=== PATIENT | male | born 1940 | race Caucasian/White ===

== ENCOUNTER 2025-05-09 12:29 | Emergency (ER) | payer MEDICARE, MEDICAID, SELFPAY ==
[2025-05-09] VITALS (33 sets, daily range): BP systolic 118–151; BP diastolic 79–114; PULSE 60–131; RESP 10–41; TEMP 36.1–36.6; O2SAT 88–98; BMI 25.7
--- NOTE | 2025-05-09 13:26 | CRLHL7_ITS ---
For Patients: As a result of the Century Cures Act, medical imaging exams and procedure reports are released immediately into your electronic medical record. You may view this report before your referring provider. If you have questions, please contact your health care provider. INDICATION: Shortness of breath TECHNIQUE: Chest 1 views. COMPARISON: None. FINDINGS: Cardiovasculature and mediastinum: Borderline cardiomegaly. Atherosclerosis of the aortic arch. Left chest wall pacemaker with leads in the right atrial appendage and right ventricle. Lungs and pleural spaces: Lung volumes are low. Mild interstitial prominence. No pneumothorax or pleural effusion. Bones and soft tissues: No significant findings. IMPRESSION: Mild interstitial prominence may be exaggerated by low lung volumes, but is concerning for mild pulmonary edema or infection. Dictated by Nela Nogueira MD @ 05/09/2025 1:57:14 PM (Electronically Signed)
--- NOTE | 2025-05-09 13:30 | ED_ITS ---
HPI - General Adult General Date Seen: 05/09/25 Chief complaint: Shortness of Breath/Dyspnea Stated complaint: shortness of breath and coughing Time Seen by Provider: 05/09/25 13:02 History of Present Illness HPI narrative: Patient is an 84-year-old here with his daughter for evaluation of shortness of breath and cough. He has apparently been more short of breath over the past couple of weeks but worse the past couple of days and now has a significant cough which his roommate at [facility], the nursing facility where he lives, said kept him up all night. No reported fevers. They are not aware of any COVID at the facility. 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 She tells me that he was on IV antibiotics for 6 weeks which did not end up making any difference and so they discontinue that, he has on chronic oral antibiotics now and is managed by an infectious disease doctor whose name she can not remember. Otherwise his care has generally been at [facility], he did see a syrup maker cook at [facility] at some point and she does not know the name of that person either. She says they told her that the next time this bacterial mass acts up that he might . He has apparently been gaining weight, but notes that his appetite has recently been better than it was. He does not have any lower extremity swelling. Related Data Home Medications ?Medication ?Instructions ?Recorded ?Confirmed aspirin 81 mg capsule 81 mg PO DAILY 05/09/2504/20 atorvastatin 40 mg tablet 40 mg PO DAILY 05/09/2504/20 cefadroxil 500 mg capsule 500 mg PO BID 05/09/2505/09 losartan 25 mg tablet (Cozaar) 12.5 mg PO DAILY 05/09/25 metoprolol succinate 25 mg 12.5 mg PO DAILY 05/09/25 0 05/09/25 tablet,extended release 24 hr (Toprol XL) Allergies Allergy/AdvReac Type Severity Reaction Status Date / Time fish oil Allergy Intermediate Rash Verified 05/09/25 12:53 tumeric Allergy Mild Rash Uncoded 05/09/25 12:53 Review of Systems Status of ROS: Reports: 10 or more systems reviewed and unremarkable except as noted in History and below Exam Narrative: Exam Narrative: Vital signs reviewed In general, alert, nontoxic elderly male. He does look tachypneic. Speaks in full sentences. Head: Normocephalic, atraumatic. Eyes: Sclera clear. Pupils equal and reactive. ENT: Mucous membranes moist. Neck: Supple without adenopathy. Heart: Sounded mildly tachycardic on my exam, he does have a systolic murmur heard over the right and left sternal borders. Lungs: Clear. No increased work of breathing, crackles or wheezes. Abdomen: Soft, nontender to palpation. Extremities: Well perfused, pulses intact. No significant edema. Neurologic: Alert, conversant. Speech fluent, face symmetric. Moves all extremities equally. Skin: Warm, dry well perfused. Affect: Normal. Const: Vital Signs, click to edit/add: Vital Signs - 24 hr 05/09/25 12:54 05/09/25 13:37 05/09/25 13:52 Temperature 97.0 F L Pulse Rate 66 122 H Pulse Rate [Pulse Oximeter] 82 Respiratory Rate 32 H 23 Blood Pressure 127/99 H Blood Pressure [Le ft Upper Arm] 132/80 Pulse Oximetry 98 95 89 Oxygen Delivery Me thod Room Air Oxygen Flow Rate 05/09/25 14:00 05/09/25 14:01 05/09/25 14:02 Temperature Pulse Rate 62 61 61 Pulse Rate [Pulse Oximeter] Respiratory Rate 26 H 15 27 H Blood Pressure 149/90 H Blood Pressure [Le ft Upper Arm] Pulse Oximetry 91 93 94 Oxygen Delivery Me thod Oxygen Flow Rate 05/09/25 14:30 05/09/25 14:32 05/09/25 15:00 Temperature Pulse Rate 64 60 Pulse Rate [Pulse Oximeter] Respiratory Rate 16 30 H 30 H Blood Pressure 137/79 Blood Pressure [Le ft Upper Arm] Pulse Oximetry 93 89 Oxygen Delivery Me thod Oxygen Flow Rate 05/09/25 15:01 05/09/25 15:30 05/09/25 15:33 Temperature Pulse Rate 90 Pulse Rate [Pulse Oximeter] Respiratory Rate 29 H 29 H 18 Blood Pressure 136/114 H 151/84 H Blood Pressure [Le ft Upper Arm] Pulse Oximetry 91 Oxygen Delivery Me thod Oxygen Flow Rate 05/09/25 15:34 05/09/25 16:00 05/09/25 16:01 Temperature Pulse Rate 118 H Pulse Rate [Pulse Oximeter] Respiratory Rate 15 22 Blood Pressure Blood Pressure [Le ft Upper Arm] Pulse Oximetry 96 97 Oxygen Delivery Me thod Nasal Cannula Oxygen Flow Rate 1 05/09/25 16:04 05/09/25 16:05 05/09/25 16:21 Temperature Pulse Rate 104 H 122 H Pulse Rate [Pulse Oximeter] Respiratory Rate 29 H 31 H 11 L Blood Pressure 140/109 H Blood Pressure [Le ft Upper Arm] Pulse Oximetry 97 93 Oxygen Delivery Me thod Oxygen Flow Rate 05/09/25 16:22 05/09/25 16:30 05/09/25 16:31 Temperature Pulse Rate 115 H 128 H 114 H Pulse Rate [Pulse Oximeter] Respiratory Rate 26 H 27 H 29 H Blood Pressure 140/96 H Blood Pressure [Le ft Upper Arm] Pulse Oximetry 96 97 97 Oxygen Delivery Me thod Nasal Cannula Nasal Cannula Nasal Cannula Oxygen Flow Rate 1 1 1 05/09/25 16:39 05/09/25 17:00 05/09/25 17:02 Temperature 97.9 F Pulse Rate 128 H 128 H Pulse Rate [Pulse Oximeter] Respiratory Rate 30 H 28 H Blood Pressure 131/100 H Blood Pressure [Le ft Upper Arm] Pulse Oximetry 98 97 Oxygen Delivery Me thod Nasal Cannula Nasal Cannula Oxygen Flow Rate 1 1 05/09/25 17:03 05/09/25 17:30 05/09/25 17:32 Temperature Pulse Rate 105 H Pulse Rate [Pulse Oximeter] Respiratory Rate 33 H 35 H 36 H Blood Pressure 118/102 H Blood Pressure [Le ft Upper Arm] Pulse Oximetry 97 Oxygen Delivery Me thod Nasal Cannula Nasal Cannula Nasal Cannula Oxygen Flow Rate 1 1 1 05/09/25 17:33 05/09/25 18:00 05/09/25 18:02 Temperature Pulse Rate 130 H 127 H Pulse Rate [Pulse Oximeter] Respiratory Rate 14 10 L 41 H Blood Pressure 120/96 H Blood Pressure [Le ft Upper Arm] Pulse Oximetry 95 92 Oxygen Delivery Me thod Nasal Cannula Nasal Cannula Oxygen Flow Rate 1 1 Course Course ED Course: Patient is medically complex with prior known bacterial endocarditis and chronic antibiotics. Diagnostic considerations are broad but would include a viral process such as COVID, pneumonia, congestive heart failure, pleural effusion, acute coronary syndrome, pulmonary embolism, anemia, among others. Wheezing reported but not heard at the time of my exam. Workup here is suggestive primarily of congestive heart failure, BNP was markedly elevated at almost 14,000. His initial troponin was 0.05, repeat was 0.17. He has never complained of chest pain, his EKG is paced and therefore not helpful. I tend to think that the troponin is more related to demand ischemia, but certainly cannot rule out acute coronary syndrome. I did talk with Cardiology through [facility], he reviewed the patient's records and noted that previously he is noted have severe aortic stenosis on ultrasound in November of this year. Not felt to be a candidate for TAVR and would not likely survive open heart surgery. Therefore, no likely interventions for his aortic stenosis, though the syrup maker cook did say that if his vegetations have resolved, it is possible he would be a candidate for TAVR. Patient seems to have quite a bit of cognitive difficulty, my conversations were generally with his daughter and son-in-law. I talked with our hospitalist who felt he would be best served at a place with Cardiology. I talked with the hospitalist at [facility], who noted that there may not be any specific intervention to do and that the further distance may be a hardship, particularly if he deteriorates. I reviewed this carefully with patient's son-in-law, his daughter was not available at the time. Daughter apparently said that she would still prefer to transfer. Therefore, arrangements being made. I gave him 40 mg of IV Lasix. His heart rate has been highly variable while here, sometimes in the 60s and sometimes close to 130. He does have a pacemaker, I repeated his EKG and this showed a paced rhythm with a rate at that time of about 1 L4, unclear whether he is going into atrial fibrillation, family does not believe he has had that diagnosis previously. Because he is so highly variable I have not given him rate control. His blood pressure has tolerated this without difficulty. I do have on on a L of oxygen, O2 sats were running about 91% and he was tachypneic on arrival. He looks like he is breathing comfortably now. Vital Signs Vital signs: Initial Vital Signs Temperature 97.0 F L 05/09/25 12:54 Temperature Source Temporal Artery Scan 05/09/25 12:54 Pulse Rate 82 05/09/25 12:54 Respiratory Rate 32 H 05/09/25 12:54 Blood Pressure 132/80 05/09/25 12:54 Blood Pressure Mean 97 05/09/25 12:54 Blood Pressure Position Sitting 05/09/25 12:54 Pulse Oximetry 98 05/09/25 12:54 Oxygen Delivery Method Room Air 05/09/25 12:54 Vital Signs Temperature 97.0 F L 05/09/25 12:54 Pulse Rate 82 05/09/25 12:54 Respiratory Rate 32 H 05/09/25 12:54 Blood Pressure 132/80 05/09/25 12:54 Pulse Oximetry 98 05/09/25 12:54 Oxygen Delivery Method Room Air 05/09/25 12:54 Temperature 97.9 F 05/09/25 16:39 Pulse Rate 127 H 05/09/25 18:02 Respiratory Rate 41 H 05/09/25 18:02 Blood Pressure 120/96 H 05/09/25 18:02 Pulse Oximetry 92 05/09/25 18:02 Oxygen Delivery Method Nasal Cannula 05/09/25 18:02 Oxygen Flow Rate 1 05/09/25 18:02 Medications Administered Medications: Discontinued Medications Generic Name Dose Route Start Last Admin Trade Name Nielsq PRN Reason Stop Dose Admin Furosemide 40 mg 05/09/25 15:02 05/09/25 15:44 Furosemide 10 Mg/Ml Inj IVP 05/09/25 15:03 40 mg ONCE ONE Administration Medical Decision Making Lab Data Labs: Lab Results 05/09/25 05/09/25 05/09/25 Range/Units 13:10 13:27 14:00 WBC 8.54 (4.50-11.00) K/uL RBC 4.72 (4.30-5.90) m/uL Hgb 14.6 (13.5-17.5) gm/dL Hct 44.2 (37.0-53.0) % MCV 94 (80-100) fL MCH 31 (26-34) pg MCHC 33 (32-36) gm/dL RDW Coeff of Luiza 14.5 (11.5-15.5) % Plt Count 112 L (140-440) K/uL Neut % (Auto) 84.0 H (42.0-72.0) % Lymph % (Auto) 6.2 L (20-44) % Cheyenne % (Auto) 9.6 (0.0-11.0) % Eos % (Auto) 0.0 (0.0-7.0) % Baso % (Auto) 0.1 (0.0-3.0) % Neut # (Auto) 7.20 H (1.7-7.0) K/uL Lymph # (Auto) 0.50 L (0.90-2.90) K/uL Cheyenne # (Auto) 0.80 (0.00-0.90) K/UL Eos # (Auto) 0.00 (0.00-0.50) K/uL Baso # (Auto) 0.01 (0.00-0.30) K/uL Abs Immat Gran (auto) 0.01 (0.00-0.30) K/uL Imm/Tot Granulo (auto) 0.1 % VBG pH 7.330 (7.32-7.43) VBG pCO2 42 (40-50) mmHG VBG pO2 < 30.1 (25-47) mmHG VBG HCO3 22 (21-28) mmol/L Sodium 140 (135-149) mmol/L Potassium 4.4 (3.6-5.1) mmol/L Chloride 108 (96-114) mmol/L Carbon Dioxide 22 (20-32) mmol/L Anion Gap 10 (7-15) mEq/L BUN 48 H (7-30) mg/dL Creatinine 1.4 (0.5-1.5) mg/dL Estimated Creat Clear 44.04 Estimated GFR 49 ml/min Glucose 154 H (60-115) mg/dL Lactate 2.1 H (0.5-1.9) mmol/L Calcium 10.3 (8.4-10.6) mg/dL Total Bilirubin 1.5 (0.1-1.5) mg/dL Direct Bilirubin 0.3 (0.0-0.5) mg/dL AST 47 H (12-35) U/L ALT 36 (4-50) U/L Alkaline Phosphatase 57 (40-150) U/L C-Reactive Protein 2.1 H (0.5-1.0) mg/dL NT-Pro-B Natriuret Pep 48636 H (See Note) pg/mL Total Protein 7.4 (6.0-8.3) g/dL Albumin 4.3 (3.3-5.0) g/dL SARS-CoV-2 (PCR) Negative SARS-CoV-2 (Negative) Influenza Type A (PCR) Negative PCR FLU A (Negative) Influenza Type B (PCR) Negative PCR FLU B (Negative) RSV (PCR) Negative PCR RSV (Negative) POC Troponin I 0.05 H (0.01-0.04) ng/ml 05/09/25 Range/Units 16:00 WBC (4.50-11.00) K/uL RBC (4.30-5.90) m/uL Hgb (13.5-17.5) gm/dL Hct (37.0-53.0) % MCV (80-100) fL MCH (26-34) pg MCHC (32-36) gm/dL RDW Coeff of Luiza (11.5-15.5) % Plt Count (140-440) K/uL Neut % (Auto) (42.0-72.0) % Lymph % (Auto) (20-44) % Cheyenne % (Auto) (0.0-11.0) % Eos % (Auto) (0.0-7.0) % Baso % (Auto) (0.0-3.0) % Neut # (Auto) (1.7-7.0) K/uL Lymph # (Auto) (0.90-2.90) K/uL Cheyenne # (Auto) (0.00-0.90) K/UL Eos # (Auto) (0.00-0.50) K/uL Baso # (Auto) (0.00-0.30) K/uL Abs Immat Gran (auto) (0.00-0.30) K/uL Imm/Tot Granulo (auto) % VBG pH (7.32-7.43) VBG pCO2 (40-50) mmHG VBG pO2 (25-47) mmHG VBG HCO3 (21-28) mmol/L Sodium (135-149) mmol/L Potassium (3.6-5.1) mmol/L Chloride (96-114) mmol/L Carbon Dioxide (20-32) mmol/L Anion Gap (7-15) mEq/L BUN (7-30) mg/dL Creatinine (0.5-1.5) mg/dL Estimated Creat Clear Estimated GFR ml/min Glucose (60-115) mg/dL Lactate 2.4 H (0.5-1.9) mmol/L Calcium (8.4-10.6) mg/dL Total Bilirubin (0.1-1.5) mg/dL Direct Bilirubin (0.0-0.5) mg/dL AST (12-35) U/L ALT (4-50) U/L Alkaline Phosphatase (40-150) U/L C-Reactive Protein (0.5-1.0) mg/dL NT-Pro-B Natriuret Pep (See Note) pg/mL Total Protein (6.0-8.3) g/dL Albumin (3.3-5.0) g/dL SARS-CoV-2 (PCR) (Negative) Influenza Type A (PCR) (Negative) Influenza Type B (PCR) (Negative) RSV (PCR) (Negative) POC Troponin I 0.17 H (0.01-0.04) ng/ml Discharge Plan Discharge Clinical Impression: Congestive heart failure, Aortic stenosis, severe, History of endocarditis Patient Disposition: Xfer Other Prescriptions: No Action aspirin 81 mg capsule 81 mg PO DAILY atorvastatin 40 mg tablet 40 mg PO DAILY losartan [Cozaar] 25 mg tablet 12.5 mg PO DAILY metoprolol succinate [Toprol XL] 25 mg tablet extended release 24 hr 12.5 mg PO DAILY cefadroxil 500 mg capsule 500 mg PO BID Stand Alone Forms: MyHealth Info Instructions Procedures ABG Interpretation ABG Results: 05/09/25 14:00 VBG pH 7.330 VBG pCO2 42 VBG pO2 < 30.1 VBG HCO3 22
[2025-05-09 13:53] LABS: PCR FLU A Negative PCR FLU A (Negative); PCR FLU B Negative PCR FLU B (Negative); PCR RSV Negative PCR RSV (Negative); SARS PCR* Negative SARS-CoV-2 (Negative)
--- OUTSIDE RECORDS SUMMARY | 2025-05-09 13:55 | XMS_ITS | Encounter Summary ---
Author Organization [facility] Address [address] [place] [address] Care Team Providers Care Parachute Taper Name Role Phone Sarah Mathews MD Primary Care Provi franko Encounter Details Date Type Department Care Team (Late st Contact Info) Description 11/20/2024 Lab Requisition [facility] [address] [place], [place] [id number] Ankita Gaviria APRN, [place] [id number] [place], [place] [phone] Acute and subacute infective endocarditis Social History Tobacco Use Types Packs/Day Years Used Date Smoking Tobacco: Never Smokeless Tobacco: Never Alcohol Use Standard Drinks/Week Comments Yes 0 (1 standard drink = 0.6 oz pur e alcohol) occ PHQ-2 Answer Date Recorded PHQ-2 Score 2 01/25/2023 Sex and Gender Information Value Date Recorded Sex Assigned at Not on file Legal Sex Male 4:27 AM CDT Gender Identity Not on file Sexual Orientation Not on file documented as of this encounter Plan of Treatment Upcoming Encounters Date Type Department Care Team (Late st Contact Info) Description 04/24/2025 Lab Requisition [facility] [address] [place], [place] [id number] Ankita Gaviria APRN, [employer] [address] [place], [place] [phone] Acute and subacute infective endocarditis 05/08/2025 Lab Requisition [facility] [address] [place] [address] Ankita Gaviria APRN, [address] [phone] Acute and subacute infective endocarditis 05/08/2025 Lab Requisition [facility] [address] [place] [address] Ankita Gaviria APRN, [address] [phone] Acute and subacute infective endocarditis 05/09/2025 Lab Requisition [facility] [address] [place], [place] [id number] [phone] Ankita Gaviria APRN, [address] [phone] Metabolic encephalopathy documented as of this encounter Procedures Procedure Name Priority Date/Time Associated Diagnosis Comments CBC AND DIFFERENTIAL PANEL Routine 12/12/2024 1:40 PM CDT Acute and subacute infective endocarditis CREATININE / GFR Routine 12/12/2024 1:40 PM CDT Acute and subacute infective endocarditis COMPLETE BLOOD COUNT-W/DIFF Routine 12/12/2024 1:40 PM CDT Acute and subacute infective endocarditis C-REACTIVE PROTEIN Routine 12/12/2024 1: 40 PM CDT Acute and subacute infective endocarditis AST Routine 12/12/2024 1:40 PM CDT Acute and subacute infective endocarditis documented in this encounter Results * (ABNORMAL) Complete Blood Count-W/Diff (12/12/2024 1:40 PM CDT) WBC 5.5 3.5 - 10.5 x10(9)/L 12/12/2024 5:20 PM CDT [facility] RBC 4.26(L) 4.32 - 5.72 x10(12)/L 12/12/2024 5:20 PM CDT [facility] Hemoglobin 13.3(L) 13.5 - 17.5 g/dL 12/12/2024 5:20 PM CDT [facility] HCT 38.5(L) 38.8 - 50.0 % 12/12/2024 5:20 PM CDT [facility] MCV 90.4 80.0 - 100.0 fL 12/12/2024 5:20 PM CDT [facility] MCH 31.2 27.6 - 33.3 pg 12/12/2024 5:20 PM CDT [facility] MCHC 34.5 31.5 - 35.2 g/dL 12/12/2024 5:20 PM CDT [facility] RDW 13.1 11.9 - 15.5 % 12/12/2024 5:20 PM CDT [facility] Platelets 165 150 - 450 x10(9)/L 12/12/2024 5:20 PM CDT [facility] Automated NRBC 0 <=0 /100 WBC 12/12/2024 5:20 PM CDT [facility] Neutrophil Absolute 3.1 1.7 - 7.0 10(9)/L 12/12/2024 5:20 PM CDT [facility] Lymphocyte Absolute 1.4 1.0 - 4.8 10(9)/L 12/12/2024 5:20 PM CDT [facility] Monocyte Absolute 0.7 0.2 - 0.9 10(9)/L 12/12/2024 5:20 PM CDT [facility] Eosinophil Absolute 0.3 0.0 - 0.5 10(9)/L 12/12/2024 5:20 PM CDT [facility] Basophil Absolute 0.0 0.0 - 0.3 10(9)/L 12/12/2024 5:20 PM CDT [facility] Immature Granulocyte % 0.4 0.0 - 0.5 % 12/12/2024 5:20 PM CDT [facility] Blood Venipuncture / Unknown 12/12/2024 1:40 PM CDT 12/12/2024 5:15 PM CDT us Ankita Gaviria BIRGIT, [facility]_1 Tabatha l Result Performing Organization Address [facility] Phone Number [facility] [address] [place] [address] * C-Reactive Protein (12/12/2024 1:40 PM CDT) C-Reactive Protein <0.5 0.0 - 0.5 mg/dL 12/12/2024 8:19 PM CDT [facility] Blood Venipuncture / Unknown 12/12/2024 1:40 PM CDT 12/12/2024 5:15 PM CDT us Ankita Gaviria BIRGIT, [employer] [facility]_1 Tabatha l Result Performing Organization Address [facility] Phone Number [facility] [address] [place] [address] * Creatinine / GFR (12/12/2024 1:40 PM CDT) Creatinine 0.96 0.73 - 1.18 mg/dL 12/12/2024 6:03 PM CDT [facility] GFR, Estimated >60 >60 mL/min/1.7 3m2 12/12/2024 6:03 PM CDT [facility] Blood Venipuncture / Unknown 12/12/2024 1:40 PM CDT 12/12/2024 5:15 PM CDT us Ankita Smallshelenehalina BIRGIT, [facility] [facility]_1 Tabatha l Result Performing Organization Address [facility] Phone Number [facility] [address] [place] [address] * AST (12/12/2024 1:40 PM CDT) AST (SGOT) 39 10 - 40 U/L 12/12/2024 6:03 PM CDT [facility] Blood Venipuncture / Unknown 12/12/2024 1:40 PM CDT 12/12/2024 5:15 PM CDT us Ankita Claytonr [employer]PERSON[employer] COMMUNICATIONS PROFESSOR, [employer] [facility]_1 Tabatha l Result [facility] [address] [place], [place] [address] documented in this encounter Visit Diagnoses Diagnosis Acute and subacute infective endocarditis Acute and subacute infective endocarditis in diseases classified elsewhere Acute and subacute infective endocarditis Acute and subacute infective endocarditis in diseases classified elsewhere Acute and subacute infective endocarditis Acute and subacute infective endocarditis in diseases classified elsewhere Acute and subacute infective endocarditis Acute and subacute infective endocarditis in diseases classified elsewhere Metabolic encephalopathy documented in this encounter Care Teams Parachute Taper Relationship Specialty Start Date End Date Sarah Mathews MD [address] [place] [address] PCP - General Family Practice 01/25/23 documented as of this encounter
--- OUTSIDE RECORDS SUMMARY | 2025-05-09 13:55 | XMS_ITS | Encounter Summary ---
Author Organization [facility] Address [address], [place] [address] Care Team Providers Care Pick Out Hand Name Role Phone Sarah Mathews MD Primary Care Provi franko Encounter Details Date Type Department Care Team (Late st Contact Info) Description 12/27/2024 Lab Requisition [facility] [address] [place], [place] [address] Ankita Gaviria APRN, MOLD YARD SUPERVISOR [address] [place], [place] [phone] Acute and subacute infective endocarditis; Muscle weakness (generalized); Hereditary and idiopathic neuropathy, unspecified Social History Tobacco Use Types Packs/Day Years [...] st Contact Info) Description 04/24/2025 Lab Requisition [facility] [address] [place], [place] [address] Ankita Gaviria APRN, MOLD YARD SUPERVISOR [address] [place] [address] [phone] Acute and subacute infective endocarditis 05/08/2025 Lab Requisition [facility] [address] [place] [address] Ankita Gaviria APRN, MOLD YARD SUPERVISOR [address] [place] [phone] Acute and subacute infective endocarditis 05/08/2025 Lab Requisition [facility] [address] [place] [address] Ankita Gaviria APRN, [address] [phone] Acute and subacute infective endocarditis 05/09/2025 Lab Requisition [facility] [address] [place] [address] Ankita Gaviria APRN, [address] [phone] Metabolic encephalopathy documented as of this encounter Procedures Procedure Name Priority Date/Time Associated Diagnosis Comments EXTRACTABLE NUCLEAR ANTIGEN ANTIBODIES Routine 12/28/2024 3:20 PM CDT Acute and subacute infective endocarditis Muscle weakness (generalized) Hereditary and idiopathic neuropathy, unspecified RONAL PROFILE 2 Routine 12/28/2024 3:20 PM CDT Acute and subacute infective endocarditis Muscle weakness (generalized) Hereditary and idiopathic neuropathy, unspecified COMPREHENSIVE METABOLIC PANEL Routine 12/28/2024 3:20 PM CDT Acute and subacute infective endocarditis Muscle weakness (generalized) Hereditary and idiopathic neuropathy, unspecified TSH, SENSITIVE Routine 12/28/2024 3:20 PM CDT Acute and subacute infective endocarditis Muscle weakness (generalized) Hereditary and idiopathic neuropathy, unspecified PROTEIN ELP (SERUM) Routine 12/28/2024 3 :20 PM CDT Acute and subacute infective endocarditis Muscle weakness (generalized) Hereditary and idiopathic neuropathy, unspecified C-REACTIVE PROTEIN Routine 12/28/2024 3: 20 PM CDT Acute and subacute infective endocarditis Muscle weakness (generalized) Hereditary and idiopathic neuropathy, unspecified FOLATE ONLY (4HR FAST RECOMMENDED) Routine 12/28/2024 3:20 PM CDT Acute and subacute infective endocarditis Muscle weakness (generalized) Hereditary and idiopathic neuropathy, unspecified VITAMIN B12 ONLY Routine 12/28/2024 3:20 PM CDT Acute and subacute infective endocarditis Muscle weakness (generalized) Hereditary and idiopathic neuropathy, unspecified documented in this encounter Results * RONAL Profile 2 (12/28/2024 3:20 PM CDT) dsDNA by Marce Negative 2024 3:15 PM CDT [facility] Anti-Fine (JULISSA) Antibody, IgG <20 <20 IU 01/01/2025 3:15 PM CDT [facility] Anti-Fine (JULISSA) Antibody Interpretation Negative Negative 01/01/2025 3:15 PM CDT [facility] Fine/MANA[facility] OF [facility] (JULISSA) Antibody, IgG <20 <20 IU 01/01/2025 3:15 PM CDT [facility] Fine/[facility] (JULISSA) Antibody Interpretation Negative Negative 01/01/2025 3:15 PM CDT [facility] Anti-SSA (Anti-Ro) <20 <20 IU 2024 3:15 PM CDT [facility] Anti-SSA (Anti-Ro) Interpretation Negative Negative 01/01/2025 3:15 PM CDT [facility] Anti-SSB (Anti- La) <20 <20 IU 01/01/2025 3:15 PM CDT [facility] Anti-SSB (Anti- La) Interpretation Negative Negative 01/01/2025 3:15 PM CDT [facility] C3 Complement 115 82 - 185 mg/dL 01/01/2025 3:15 PM CDT [facility] C4 Complement 40.0 15.0 - 53.0 mg/dL 01/01/2025 3:15 PM CDT [facility] Centromere Antibody IgG <20 <20 IU 01/01/2025 3:15 PM CDT [facility] Centromere Antibody Interpretation Negative Negative 01/01/2025 3:15 PM CDT [facility] SCL-70 (JULISSA) Antibody, IgG 10 <20 IU 01/01/2025 3:15 PM CDT [facility] SCL-70 (JULISSA) Antibody Interpretation Negative Negative 01/01/2025 3:15 PM CDT [facility] Blood Venipuncture / Unknown 12/28/2024 3:20 PM CDT 12/28/2024 6:22 PM CDT Narrative [facility] - 01/01/2025 3:15 PM CDT The results from DSDNA by IFA using Crithidea lucillae, Centromere, Anti-Smtih, Fine/MANA[facility] OF [facility], Anti-SSA, Anti-SSB, and Scl-70 were obtained with the [employer] QUANTA Lite. Values that are obtained with a different manufacturers' assay method may not be used interchangeably. us Ankita Gaviria APRN, MOLD YARD SUPERVISOR LAB_1 Tabatha l Result [facility] [address] * JULISSA Antibodies (12/28/2024 3:20 PM CDT) Anti-Fine (JULISSA) Antibody, IgG <20 <20 IU 01/01/2025 2:28 PM CDT [facility] Anti-Fine (JULISSA) Antibody Interpretation Negative Negative 01/01/2025 2:28 PM CDT [facility] Fine/[facility] (JULISSA) Antibody, IgG <20 <20 IU 01/01/2025 2:28 PM CDT [facility] Fine/[facility] (JULISSA) Antibody Interpretation Negative Negative 01/01/2025 2:28 PM CDT [facility] Anti-SSA (Anti-Ro) <20 <20 IU 2024 2:28 PM CDT [facility] Anti-SSA (Anti-Ro) Interpretation Negative Negative 01/01/2025 2:28 PM CDT [facility] Anti-SSB (Anti- La) <20 <20 IU 01/01/2025 2:28 PM CDT [facility] Anti-SSB (Anti- La) Interpretation Negative Negative 01/01/2025 2:28 PM CDT [facility] Blood Venipuncture / Unknown 12/28/2024 3:20 PM CDT 12/28/2024 6:22 PM CDT Narrative [facility] - 01/01/2025 2:28 PM CDT The results from Anti-SSA, Anti-SSB, Anti-Fine and Fine/[facility] were obtained with the [employer] QUANTA Lite. Values that are obtained with a different manufacturers' assay method may not be used interchangeably. us Ankita Gaviria APRN, MOLD YARD SUPERVISOR LAB_1 Tabatha le Result [facility] [address] * (ABNORMAL) Protein ELP (Serum) (12/28/2024 3:20 PM CDT) Total Protein 6.1(L) 6.4 - 8.3 g/dL 12/31/2024 9:50 AM CDT [facility] Albumin 3.3(L) 3.4 - 4.8 g/dL 12/31/2024 9:50 AM CDT [facility] Alpha 1 0.3 0.2 - 0.5 g/dL 12/31/2024 9:50 AM T [facility] Alpha 2 0.8 0.5 - 1.1 g/dL 12/31/2024 9:50 AM CDT [facility] Beta 0.8 0.6 - 1.1 g/dL 12/31/2024 9:50 AM T [facility] Gamma 1.0 0.7 - 1.6 g/dL 12/31/2024 9:50 AM T [facility] Monoclonal Talon 0.0 <=0.0 g/dL 12/31/2024 9:50 AM T [facility] Interpretation No monoclonal protein detected. Serum protein electrophoresis shows hypoalbuminemia. 12/31/2024 9:50 AM CDT [facility] Signed Out By [facility] 12/31/2024 9:50 AM CDT [facility] Blood Venipuncture / Unknown 12/28/2024 3:20 PM CDT 12/28/2024 6:22 PM CDT Ankita Smallsbler LUMBER SALES SUPERVISOR, MOLD YARD SUPERVISOR LAB_1 Tabatha l Result Performing Organization Address City/[facility]/ZIP Co de Phone Number [facility] [address] * Vitamin B12 Only (12/28/2024 3:20 PM CDT) Pathologist [facility] Vitamin B12 620 213 - 816 pg/mL 12/28/2024 7:23 PM CDT [facility] Blood Venipuncture / Unknown 12/28/2024 3:20 PM CDT 12/28/2024 6:21 PM CDT Ankita Smallsbler LUMBER SALES SUPERVISOR, MOLD YARD SUPERVISOR LAB_1 Tabatha l Result Performing Organization Address [facility] [place]/[facility] Co de Phone Number [facility] [address] [place] [address] * TSH (12/28/2024 3:20 PM CDT) Pathologist [facility] TSH, Sensitive 1.08 0.30 - 4.50 uIU/mL 12/28/2024 7:15 PM CDT [facility] Blood Venipuncture / Unknown 12/28/2024 3:20 PM CDT 12/28/2024 6:21 PM CDT Ankita Smallsbler LUMBER SALES SUPERVISOR, MOLD YARD SUPERVISOR LAB_1 Tabatha l Result Performing Organization Address City/[facility] Co de Phone Number [facility] [address] [place] [address] * Folate Only (4Hr Fast Recommended) (12/28/2024 3:20 PM CDT) Pathologist [facility] Folate 8.0 >=7.0 ng/mL 12/28/2024 7:31 PM CDT [facility] Blood Venipuncture / Unknown 12/28/2024 3:20 PM CDT 12/28/2024 6:22 PM CDT us Ankita Claytonr LUMBER SALES SUPERVISOR, MOLD YARD SUPERVISOR LAB_1 Tabatha l Result [facility] [address] * (ABNORMAL) Comprehensive Metabolic Panel (12/28/2024 3:20 PM CDT) Pathologist [facility] Sodium 138 136 - 145 mmol/L 12/28/2024 6:44 PM CDT [facility] Potassium 4.2 3.5 - 5.1 mmol/L 12/28/2024 6:44 PM CDT [facility] Chloride 105 98 - 109 mmol/L 12/28/2024 6:44 PM CDT [facility] CO2 22 20 - 29 mmol/L 12/28/2024 6:44 PM CDT [facility] Anion Gap 11 6 - 16 mmol/L 12/28/2024 6:44 PM CDT [facility] Calcium 9.7 8.4 - 10.4 mg/dL 12/28/2024 6:44 PM CDT [facility] BUN 34(H) 7 - 26 mg/dL 12/28/2024 6:44 PM CDT [facility] Creatinine 1.01 0.73 - 1.18 mg/dL 12/28/2024 6:44 PM CDT [facility] Alkaline Phosphatase 66 40 - 150 U/L 12/28/2024 6:44 PM CDT [facility] AST (SGOT) 36 10 - 40 U/L 12/28/2024 6:44 PM CDT [facility] ALT (SGPT) 20 0 - 55 U/L 12/28/2024 6:44 PM CDT [facility] Bilirubin, Total 0.5 0.2 - 1.2 mg/dL 12/28/2024 6:44 PM CDT [facility] Protein, Total 6.6 6.4 - 8.3 g/dL 12/28/2024 6:44 PM CDT [facility] Albumin 3.3(L) 3.5 - 5.0 g/dL 12/28/2024 6:44 PM CDT [facility] Glucose 154(H) 70 - 100 mg/dL 12/28/2024 6:44 PM CDT [facility] Comment:The given reference range is for the fasting state. Non-fasting reference range for glucose is 70 - 180 mg/dL. GFR, Estimated >60 >60 mL/min/1.7 3m2 12/28/2024 6:44 PM CDT [facility] Hours Fasting 0.1 8 - 12 Hours 12/28/2024 6:44 PM CDT [facility] Comment:Lab unable to obtain patient's fasting status at time of specimen collection. Blood Venipuncture / Unknown 12/28/2024 3:20 PM CDT 12/28/2024 6:21 PM CDT Ankita Gaviria APRN, MOLD YARD SUPERVISOR LAB_1 Tabatha l Result Performing Organization Address [facility] de Phone Number [facility] [address] * C-Reactive Protein (12/28/2024 3:20 PM CDT) C-Reactive Protein <0.5 0.0 - 0.5 mg/dL 12/28/2024 6:44 PM CDT [facility] Blood Venipuncture / Unknown 12/28/2024 3:20 PM CDT 12/28/2024 6:21 PM CDT Ankita Gaviria LUMBER SALES SUPERVISOR, MOLD YARD SUPERVISOR LAB_1 Tabatha l Result Performing Organization Address [facility] Phone Number [facility] [address] [place] [address] documented in this encounter Visit Diagnoses Diagnosis Acute and subacute infective endocarditis Acute and subacute infective endocarditis in diseases classified elsewhere Muscle weakness (generalized) Hereditary and idiopathic neuropathy, unspecified Acute and subacute infective endocarditis Acute and subacute infective endocarditis in diseases classified elsewhere Acute and subacute infective endocarditis Acute and subacute infective endocarditis in diseases classified elsewhere Acute and subacute infective endocarditis Acute and subacute infective endocarditis in diseases classified elsewhere Metabolic encephalopathy documented in this encounter Care Teams Pick Out Hand Relationship Specialty Start Date End Date Sarah Mathews MD [address] [place] [address] PCP - General Family Practice 01/25/23 documented as of this encounter
--- OUTSIDE RECORDS SUMMARY | 2025-05-09 13:55 | XMS_ITS | Encounter Summary ---
Author Organization [facility] Address [address] [place] [address] Care Team Providers Care Thaw Shed Heater Tender Name Role Phone Sarah Mathews MD Primary Care Provi franko Encounter Details Date Type Department Care Team (Late st Contact Info) Description 12/19/2024 Lab Requisition [facility] [address] [place], [place] [address] Ankita Gaviria APRN, [place] [address] [place], [place] [phone] Acute and subacute infective endocarditis Social History [...] st Contact Info) Description 04/24/2025 Lab Requisition [facility] [address] [place], [place] [address] Ankita Gaviria APRN, CASH REGISTER SERVICER [address] [place], [place] [phone] Acute and subacute infective endocarditis 05/08/2025 Lab Requisition [facility] [address] [place] [address] Ankita Gaviria APRN, [address] [phone] Acute and subacute infective endocarditis 05/08/2025 Lab Requisition [facility] [address] [place] [address] Ankita Gaviria APRN, [address] [phone] Acute and subacute infective endocarditis 05/09/2025 Lab Requisition [facility] [address] [place], [place] [address] [phone] Ankita Gaviria APRN, [address] [phone] Metabolic encephalopathy documented as of this encounter Procedures Procedure Name Priority Date/Time Associated Diagnosis Comments CBC AND DIFFERENTIAL PANEL Routine 01/01/2025 8:49 AM CDT Acute and subacute infective endocarditis CREATININE / GFR Routine 01/01/2025 8:49 AM CDT Acute and subacute infective endocarditis COMPLETE BLOOD COUNT-W/DIFF Routine 01/01/2025 8:49 AM CDT Acute and subacute infective endocarditis C-REACTIVE PROTEIN Routine 01/01/2025 8: 49 AM CDT Acute and subacute infective endocarditis AST Routine 01/01/2025 8:49 AM CDT Acute and subacute infective endocarditis documented in this encounter Results * Complete Blood Count-W/Diff (01/01/2025 8:49 AM CDT) WBC 8.9 3.5 - 10.5 x10(9)/L 01/01/2025 2:59 PM CDT [facility] RBC 4.64 4.32 - 5.72 x10(12)/L 01/01/2025 2:59 PM CDT [facility] Hemoglobin 14.1 13.5 - 17.5 g/dL 01/01/2025 2:59 PM CDT [facility] HCT 42.9 38.8 - 50.0 % 01/01/2025 2:59 PM CDT [facility] MCV 92.5 80.0 - 100.0 fL 01/01/2025 2:59 PM CDT [facility] MCH 30.4 27.6 - 33.3 pg 01/01/2025 2:59 PM CDT [facility] MCHC 32.9 31.5 - 35.2 g/dL 01/01/2025 2:59 PM CDT [facility] RDW 12.9 11.9 - 15.5 % 01/01/2025 2:59 PM CDT [facility] Platelets 207 150 - 450 x10(9)/L 01/01/2025 2:59 PM CDT [facility] Automated NRBC 0 <=0 /100 WBC 01/01/2025 2:59 PM CDT [facility] Neutrophil Absolute 5.7 1.7 - 7.0 10(9)/L 01/01/2025 2:59 PM CDT [facility] Lymphocyte Absolute 2.2 1.0 - 4.8 10(9)/L 01/01/2025 2:59 PM CDT [facility] Monocyte Absolute 0.7 0.2 - 0.9 10(9)/L 01/01/2025 2:59 PM CDT [facility] Eosinophil Absolute 0.2 0.0 - 0.5 10(9)/L 01/01/2025 2:59 PM CDT [facility] Basophil Absolute 0.0 0.0 - 0.3 10(9)/L 01/01/2025 2:59 PM CDT [facility] Immature Granulocyte % 0.4 0.0 - 0.5 % 01/01/2025 2:59 PM CDT [facility] Blood Venipuncture / Unknown 01/01/2025 8:49 AM CDT 01/01/2025 2:27 PM CDT Ankita Jha Khadra GENAO, CASH REGISTER SERVICER LAB_1 Tabatha l Result Performing Organization Address [facility] Phone Number [facility] [address] [place] [address] * C-Reactive Protein (01/01/2025 8:49 AM CDT) C-Reactive Protein <0.5 0.0 - 0.5 mg/dL 01/01/2025 2:39 PM CDT [facility] Blood Venipuncture / Unknown 01/01/2025 8:49 AM CDT 01/01/2025 2:21 PM CDT Ankita Yudelka Khadra GENAO, CASH REGISTER SERVICER LAB_1 Tabatha l Result Performing Organization Address [facility] Phone Number [facility] [address] [place] [address] * Creatinine / GFR (01/01/2025 8:49 AM CDT) Creatinine 0.97 0.73 - 1.18 mg/dL 01/01/2025 2:39 PM CDT [facility] GFR, Estimated >60 >60 mL/min/1.7 3m2 01/01/2025 2:39 PM CDT [facility] Blood Venipuncture / Unknown 01/01/2025 8:49 AM CDT 01/01/2025 2:21 PM CDT Ankita Jha Khadra GENAO, CASH REGISTER SERVICER LAB_1 Tabatha l Result Performing Organization Address [facility] Phone Number [facility] [address] [place] [address] * AST (01/01/2025 8:49 AM CDT) AST (SGOT) 37 10 - 40 U/L 01/01/2025 2:39 PM CDT [facility] Blood Venipuncture / Unknown 01/01/2025 8:49 AM CDT 01/01/2025 2:21 PM CDT us Ankita Gaviria AUTOMATIC PILOT MECHANIC, CASH REGISTER SERVICER LAB_1 Tabatha l Result [facility] [address] [place], [place] [address] documented in this encounter Visit Diagnoses Diagnosis [...] encephalopathy documented in this encounter Care Teams Thaw Shed Heater Tender Relationship Specialty Start Date End Date Sarah Mathews MD [address] [place], [place] [phone] PCP - General Family Practice 01/25/23 documented as of this encounter
--- OUTSIDE RECORDS SUMMARY | 2025-05-09 13:55 | XMS_ITS | Encounter Summary ---
Author Organization [facility] Address [address] [place] [address] Care Team Providers Care Parcel Contractor Name Role Phone Sarah Mathews MD Primary Care Provi franko Encounter Details Date Type Department Care Team (Late st Contact Info) Description 01/02/2025 Lab Requisition [facility] [address] [place], [place] [address] Ankita Gaviria APRN, [place] [phone] [place], [place] [phone] Acute and subacute infective endocarditis Social History [...] st Contact Info) Description 04/24/2025 Lab Re[facility] [address] [place] [address] Ankita Gaviria APRN, ENROLLMENT PROCESSOR [address] [place], [place] [phone] Acute and subacute infective endocarditis 05/08/2025 Lab Requisition [facility] [address] [place] [address] Ankita Gaviria APRN, [address] [phone] Acute and subacute infective endocarditis 05/08/2025 Lab Re[facility] [address] [place] [address] Ankita Gaviria APRN, [address] [phone] Acute and subacute infective endocarditis 05/09/2025 Lab Re[facility] [address] [place], [place] [address] [phone] Ankita Gaviria APRN, [address] [phone] Metabolic encephalopathy documented as of this encounter Procedures Procedure Name Priority Date/Time Associated Diagnosis Comments CBC AND DIFFERENTIAL PANEL Routine 01/22/2025 11:30 AM CDT Acute and subacute infective endocarditis CREATININE / GFR Routine 01/22/2025 11:3 0 AM CDT Acute and subacute infective endocarditis COMPLETE BLOOD COUNT-W/DIFF Routine 01/22/2025 11:30 AM CDT Acute and subacute infective endocarditis C-REACTIVE PROTEIN Routine 01/22/2025 11 :30 AM CDT Acute and subacute infective endocarditis AST Routine 01/22/2025 11:30 AM CDT Acute and subacute infective endocarditis documented in this encounter Results * (ABNORMAL) Complete Blood Count-W/Diff (01/22/2025 11:30 AM CDT) [facility] WBC 4.9 3.5 - 10.5 x10(9)/L 01/22/2025 2:30 PM CDT [facility] RBC 4.11(L) 4.32 - 5.72 x10(12)/L 01/22/2025 2:30 PM CDT [facility] Hemoglobin 12.4(L) 13.5 - 17.5 g/dL 01/22/2025 2:30 PM CDT [facility] HCT 37.1(L) 38.8 - 50.0 % 01/22/2025 2:30 PM CDT [facility] MCV 90.3 80.0 - 100.0 fL 01/22/2025 2:30 PM CDT [facility] MCH 30.2 27.6 - 33.3 pg 01/22/2025 2:30 PM CDT [facility] MCHC 33.4 31.5 - 35.2 g/dL 01/22/2025 2:30 PM CDT [facility] RDW 13.1 11.9 - 15.5 % 01/22/2025 2:30 PM CDT [facility] Platelets 151 150 - 450 x10(9)/L 01/22/2025 2:30 PM CDT [facility] Automated NRBC 0 <=0 /100 WBC 01/22/2025 2:30 PM CDT [facility] Neutrophil Absolute 2.4 1.7 - 7.0 10(9)/L 01/22/2025 2:30 PM CDT [facility] Lymphocyte Absolute 1.4 1.0 - 4.8 10(9)/L 01/22/2025 2:30 PM CDT [facility] Monocyte Absolute 0.9 0.2 - 0.9 10(9)/L 01/22/2025 2:30 PM CDT [facility] Eosinophil Absolute 0.1 0.0 - 0.5 10(9)/L 01/22/2025 2:30 PM CDT [facility] Basophil Absolute 0.0 0.0 - 0.3 10(9)/L 01/22/2025 2:30 PM CDT [facility] Immature Granulocyte % 0.2 0.0 - 0.5 % 01/22/2025 2:30 PM CDT [facility] Blood Venipuncture / Unknown 01/22/2025 11:30 AM CDT 01/22/2025 2:22 PM CDT Ankita Gaviria FUNERAL SERVICE APPRENTICE, ENROLLMENT PROCESSOR LAB_1 Tabatha l Result Performing Organization Address [facility] Phone Number [facility] [address] [place] [address] * (ABNORMAL) C-Reactive Protein (01/22/2025 11:30 AM CDT) C-Reactive Protein 0.7(H) 0.0 - 0.5 mg/dL 01/22/2025 3:13 PM CDT [facility] Blood Venipuncture / Unknown 01/22/2025 11:30 AM CDT 01/22/2025 2:22 PM CDT Ankita Smallshelenehalina FUNERAL SERVICE APPRENTICE, ENROLLMENT PROCESSOR LAB_1 Tabatha l Result Performing Organization Address [facility] Phone Number [facility] [address] [place] [address] * Creatinine / GFR (01/22/2025 11:30 AM CDT) Creatinine 1.09 0.73 - 1.18 mg/dL 01/22/2025 3:13 PM CDT [facility] GFR, Estimated >60 >60 mL/min/1.7 3m2 01/22/2025 3:13 PM CDT [facility] Blood Venipuncture / Unknown 01/22/2025 11:30 AM CDT 01/22/2025 2:22 PM CDT Ankita Smallskaren FUNERAL SERVICE APPRENTICE, ENROLLMENT PROCESSOR LAB_1 Tabatha l Result Performing Organization Address [facility] de Phone Number [facility] [address] [place] [address] * AST (01/22/2025 11:30 AM CDT) AST (SGOT) 32 10 - 40 U/L 01/22/2025 3:13 PM CDT [facility] Blood Venipuncture / Unknown 01/22/2025 11:30 AM CDT 01/22/2025 2:22 PM CDT us Ankita Claytonr FUNERAL SERVICE APPRENTICE, ENROLLMENT PROCESSOR LAB_1 Tabatha l Result [facility] [address] [place], [place] [address] documented in this encounter Visit Diagnoses [...] encephalopathy documented in this encounter Care Teams Parcel Contractor Relationship Specialty Start Date End Date Sarah Mathews MD [facility] [address] [place] [phone] PCP - General Family Practice 01/25/23 documented as of this encounter
--- OUTSIDE RECORDS SUMMARY | 2025-05-09 13:55 | XMS_ITS | Encounter Summary ---
Author Organization [facility] Address [address] [place] [address] Care Team Providers Care Steel Grinder Name Role Phone Sarah Mathews MD Primary Care Provi franko Encounter Details Date Type Department Care Team (Late st Contact Info) Description 11/14/2024 Lab Requisition [facility] [address] [place], [place] [address] Aknita Gaviria APRN, [place] [address] [place], [place] [phone] Acute and subacute infective endocarditis Social History [...] st Contact Info) Description 04/24/2025 Lab Requisition [facility] [address] [place] [address] Ankita Gaviria APRN, ENVIRONMENTAL SCIENCE TECHNICIAN [address] [place], [place] [phone] Acute and subacute infective endocarditis 05/08/2025 Lab Requisition [facility] [address] [place] [address] Ankita Gaviria APRN, [address] [phone] Acute and subacute infective endocarditis 05/08/2025 Lab Requisition [facility] [address] [place] [address] Ankita Gaviria APRN, [address] [phone] Acute and subacute infective endocarditis 05/09/2025 Lab Requisition [facility] [address] [place], [place] [address] Ankita Gaviria APRN, [address] [phone] Metabolic encephalopathy documented as of this encounter Visit Diagnoses Diagnosis Acute and [...] encephalopathy documented in this encounter Care Teams Steel Grinder Relationship Specialty Start Date End Date Sarah Mathews MD [address] [place] [address] PCP - General Family Practice 01/25/23 documented as of this encounter
--- OUTSIDE RECORDS SUMMARY | 2025-05-09 13:55 | XMS_ITS | Encounter Summary ---
Author Organization [facility] Address [address] [address] Care Team Providers Care Regulatory Law Specialist Name Role Phone Sarah Mathews MD Primary Care Provi franko Encounter Details Date Type Department Care Team (Late st Contact Info) Description 12/27/2024 Lab Requisition [facility] [address] [place], [place] [address] Ankita Gaviria APRN, AUTOMATION ANALYST [address] [place], [place] [address] Acute and subacute infective endocarditis; Muscle weakness [...] st Contact Info) Description 04/24/2025 Lab Requisition [facility] [address] [place], [place] [address] Ankita Gaviria APRN, AUTOMATION ANALYST [address] [place] [address] Acute and subacute infective endocarditis 05/08/2025 Lab Requisition [facility] [address] [place] [address] Ankita Gaviria APRN, [address] [address] Acute and subacute infective endocarditis 05/08/2025 Lab Requisition [facility] [address] [place] [address] Ankita Gaviria APRN, [address] [phone] Acute and subacute infective endocarditis 05/09/2025 Lab Requisition [facility] [address] [place] [address] Ankita Gaviria APRN, [address] [phone] Metabolic encephalopathy documented as of this encounter [...] encephalopathy documented in this encounter Care Teams Regulatory Law Specialist Relationship Specialty Start Date End Date Sarah Mathews MD [address] [place] [address] PCP - General Family Practice 01/25/23 documented as of this encounter
--- OUTSIDE RECORDS SUMMARY | 2025-05-09 13:55 | XMS_ITS | Encounter Summary ---
Author Organization [facility] Address [address] [place] [address] Care Team Providers Care Manager Programming Name Role Phone Sarah Mathews MD Primary Care Provi franko Encounter Details Date Type Department Care Team (Late st Contact Info) Description 12/13/2024 Lab Requisition [facility] [address] [place], [place] [address] Ankita Gaviria APRN, [place] 9[address] [place], [place] [address]114 Elevation of levels of liver transaminase levels Social History Tobacco Use Types Packs/Day Years [...] st Contact Info) Description 04/24/2025 Lab Requisition [facility] [address] [place] [address] Ankita Gaviria APRN, MICROFICHE CAMERA OPERATOR [address] [place], [place] [phone] Acute and subacute infective endocarditis 05/08/2025 Lab Requisition [facility] [address] [place] [address] Ankita Gaviria APRN, MICROFICHE CAMERA OPERATOR [facility] [place], [place] [phone] Acute and subacute infective endocarditis 05/08/2025 Lab Requisition [facility] [address] [place] [address] Ankita Gaviria APRN, MICROFICHE CAMERA OPERATOR [address] [place] [address] Acute and subacute infective endocarditis 05/09/2025 Lab Requisition [facility] [address] [place] [address] Ankita Gaviria APRN, MICROFICHE CAMERA OPERATOR [address] [place] [phone] Metabolic encephalopathy documented as of this encounter Procedures Procedure Name Priority Date/Time Associated Diagnosis Comments ALT (SGPT) Routine 12/13/2024 1:39 PM CDT Elevation of levels of liver transaminase levels AST Routine 12/13/2024 1:39 PM CDT Elevation of levels of liver transaminase levels documented in this encounter Results * AST (12/13/2024 1:39 PM CDT) AST (SGOT) 39 10 - 40 U/L 12/13/2024 4:11 PM CDT [facility] Blood VENOUS BLOOD SPECIMEN / Unknown Venipuncture / Unknown 12/13/2024 1:39 PM CDT 12/13/2024 3:12 PM CDT Ankita Gaviria APRN, MICROFICHE CAMERA OPERATOR LAB_1 Tabatha l Result Performing Organization Address City/[facility]/ZIP Co de Phone Number [facility] [address] [place] [address], [facility] * ALT (SGPT) (12/13/2024 1:39 PM CDT) ALT (SGPT) 42 0 - 55 U/L 12/13/2024 4:11 PM CDT [facility] Blood VENOUS BLOOD SPECIMEN / Unknown Venipuncture / Unknown 12/13/2024 1:39 PM CDT 12/13/2024 3:12 PM CDT us Ankita Gaviria APRN, MICROFICHE CAMERA OPERATOR LAB_1 Tabatha l Result Performing Organization Address [facility] Co de Phone Number [facility] [address] [place], [place] [phone] [place] [address] documented in this encounter Visit Diagnoses Diagnosis Elevation of levels of liver transaminase levels Acute and subacute infective endocarditis Acute and subacute infective endocarditis in diseases classified elsewhere Acute and subacute infective endocarditis Acute and subacute infective endocarditis in diseases classified elsewhere Acute and subacute infective endocarditis Acute and subacute infective endocarditis in diseases classified elsewhere Metabolic encephalopathy documented in this encounter Care Teams Manager Programming Relationship Specialty Start Date End Date Sarah Mathews MD [address] [place] [address] PCP - General Family Practice 01/25/23 documented as of this encounter
--- OUTSIDE RECORDS SUMMARY | 2025-05-09 13:55 | XMS_ITS | Encounter Summary ---
Author Organization [facility] Address [address], [place] [address] Care Team Providers Care Ground Crew Linesman Name Role Phone Sarah Mathews MD Primary Care Provi franko Encounter Details Date Type Department Care Team (Late st Contact Info) Description 12/12/2024 Lab Requisition [facility] [address] [place], [place] [address] Ankita Gaviria APRN, COOK NIGHT [address] [place], [place] [phone] Acute and subacute infective endocarditis; Muscle weakness [...] st Contact Info) Description 04/24/2025 Lab Requisition [facility] [address] [place], [place] [address] Ankita Gaviria APRN, COOK NIGHT [address] [place] [address] Acute and subacute infective endocarditis 05/08/2025 Lab Requisition [facility] [address] [place] [address] Ankita Gaviria APRN, [address] [address] Acute and subacute infective endocarditis 05/08/2025 Lab Requisition [facility] [address] [place] [address] Ankita Gaviria APRN, [address] [phone] Acute and subacute infective endocarditis 05/09/2025 Lab Requisition [facility] [address] [place] [address] Ankita Gaviria APRN, [address] [phone] Metabolic encephalopathy documented as of this encounter [...] encephalopathy documented in this encounter Care Teams Ground Crew Linesman Relationship Specialty Start Date End Date Sarah Mathews MD [address] [place] [address] PCP - General Family Practice 01/25/23 documented as of this encounter
--- OUTSIDE RECORDS SUMMARY | 2025-05-09 13:55 | XMS_ITS | Encounter Summary ---
Author Organization [facility] Address [address] [place] [address] Care Team Providers Care Reservations Sales Supervisor Name Role Phone Sarah Mathews MD Primary Care Provi franko Encounter Details Date Type Department Care Team (Late st Contact Info) Description 12/26/2024 Lab Requisition [facility] [address] [place], [place] [address] Ankita Gaviria APRN, [place] [address] [place], [place] [phone] Acute and subacute infective endocarditis Social History [...] st Contact Info) Description 04/24/2025 Lab Requisition [facility] [address] [place], [place] [address] Ankita Gaviria APRN, PROPOSAL WRITER [address] [place], [place] [phone] Acute and subacute infective endocarditis 05/08/2025 Lab Requisition [facility] [address] [place] [address] Ankita Gaviria APRN, [address] [address] [phone] Acute and subacute infective endocarditis 05/08/2025 Lab Requisition [facility] [address] [place] [address] Ankita Gaviria PROCESS IMPROVEMENT SPECIALIST, [address] [phone] Acute and subacute infective endocarditis 05/09/2025 Lab Requisition [facility] [address] [place], [place] [address] [phone] Ankita Gaviria APRN, [address] [phone] Metabolic encephalopathy documented as of this encounter Procedures Procedure Name Priority Date/Time Associated Diagnosis Comments CBC AND DIFFERENTIAL PANEL Routine 01/08/2025 10:00 AM CDT Acute and subacute infective endocarditis CREATININE / GFR Routine 01/08/2025 10:0 0 AM CDT Acute and subacute infective endocarditis COMPLETE BLOOD COUNT-W/DIFF Routine 01/08/2025 10:00 AM CDT Acute and subacute infective endocarditis C-REACTIVE PROTEIN Routine 01/08/2025 10 :00 AM CDT Acute and subacute infective endocarditis AST Routine 01/08/2025 10:00 AM CDT Acute and subacute infective endocarditis documented in this encounter Results * (ABNORMAL) Complete Blood Count-W/Diff (01/08/2025 10:00 AM CDT) [facility] WBC 5.3 3.5 - 10.5 x10(9)/L 01/08/2025 3:57 PM CDT [facility] RBC 4.01(L) 4.32 - 5.72 x10(12)/L 01/08/2025 3:57 PM CDT [facility] Hemoglobin 12.2(L) 13.5 - 17.5 g/dL 01/08/2025 3:57 PM CDT [facility] HCT 36.4(L) 38.8 - 50.0 % 01/08/2025 3:57 PM CDT [facility] MCV 90.8 80.0 - 100.0 fL 01/08/2025 3:57 PM CDT [facility] MCH 30.4 27.6 - 33.3 pg 01/08/2025 3:57 PM CDT [facility] MCHC 33.5 31.5 - 35.2 g/dL 01/08/2025 3:57 PM CDT [facility] RDW 13.1 11.9 - 15.5 % 01/08/2025 3:57 PM CDT [facility] Platelets 144(L) 150 - 450 x10(9)/L 01/08/2025 3:57 PM CDT [facility] Automated NRBC 0 <=0 /100 WBC 01/08/2025 3:57 PM CDT [facility] Neutrophil Absolute 4.0 1.7 - 7.0 10(9)/L 01/08/2025 3:57 PM CDT [facility] Lymphocyte Absolute 0.8(L) 1.0 - 4.8 10(9)/L 01/08/2025 3:57 PM CDT [facility] Monocyte Absolute 0.5 0.2 - 0.9 10(9)/L 01/08/2025 3:57 PM CDT [facility] Eosinophil Absolute 0.1 0.0 - 0.5 10(9)/L 01/08/2025 3:57 PM CDT [facility] Basophil Absolute 0.0 0.0 - 0.3 10(9)/L 01/08/2025 3:57 PM CDT [facility] Immature Granulocyte % 0.4 0.0 - 0.5 % 01/08/2025 3:57 PM CDT [facility] Blood Venipuncture / Unknown 01/08/2025 10:00 AM CDT 01/08/2025 3:49 PM CDT us Ankita Gaviria PROCESS IMPROVEMENT SPECIALIST, PROPOSAL WRITER LAB_1 Tabatha l Result Performing Organization Address [facility] Phone Number [facility] [address] * C-Reactive Protein (01/08/2025 10:00 AM CDT) C-Reactive Protein <0.5 0.0 - 0.5 mg/dL 01/08/2025 5:42 PM CDT [facility] Blood Venipuncture / Unknown 01/08/2025 10:00 AM CDT 01/08/2025 3:45 PM CDT us Ankita Gaviria PROCESS IMPROVEMENT SPECIALIST, PROPOSAL WRITER LAB_1 Tabatha l Result Performing Organization Address [facility] Phone Number [facility] [address] * Creatinine / GFR (01/08/2025 10:00 AM CDT) Creatinine 1.12 0.73 - 1.18 mg/dL 01/08/2025 5:42 PM CDT [facility] GFR, Estimated >60 >60 mL/min/1.7 3m2 01/08/2025 5:42 PM CDT [facility] Blood Venipuncture / Unknown 01/08/2025 10:00 AM CDT 01/08/2025 3:45 PM CDT us Ankita Gaviria PROCESS IMPROVEMENT SPECIALIST, PROPOSAL WRITER LAB_1 Tabatha l Result Performing Organization Address [facility] Phone Number [facility] [address] * AST (01/08/2025 10:00 AM CDT) AST (SGOT) 34 10 - 40 U/L 01/08/2025 5:42 PM CDT [facility] Blood Venipuncture / Unknown 01/08/2025 10:00 AM CDT 01/08/2025 3:45 PM CDT us Ankita Smallsbler PROCESS IMPROVEMENT SPECIALIST, PROPOSAL WRITER LAB_1 Tabatha l Result [facility] [address] [id number] documented in this encounter Visit Diagnoses [...] encephalopathy documented in this encounter Care Teams Reservations Sales Supervisor Relationship Specialty Start Date End Date Sarah Mathews MD [address] [place] [id number] PCP - General Family Practice 01/25/23 documented as of this encounter
--- OUTSIDE RECORDS SUMMARY | 2025-05-09 13:55 | XMS_ITS | Encounter Summary ---
Author Organization [facility] Address [address] [place] [address] Care Team Providers Care Airframe Technical Officer Name Role Phone Sarah Mathews MD Primary Care Provi franko Encounter Details Date Type Department Care Team (Late st Contact Info) Description 12/05/2024 Lab Requisition [facility] [address] [place], [place] [address] Ankita Gaviria APRN, [place] [address] [place], [place] [phone] Acute and subacute infective endocarditis Social History [...] st Contact Info) Description 04/24/2025 Lab Requisition [facility] [address] [place], [place] [address] Ankita Gaviria APRN, CAN WASHER [address] [place], [place] [phone] Acute and subacute infective endocarditis 05/08/2025 Lab Requisition [facility] [address] [employer] [place] [place] [address] Ankita Gaviria APRN, [address] [phone] Acute and subacute infective endocarditis 05/08/2025 Lab Requisition [facility] [address] [employer] [place] [place] [address] Ankita Gaviria APRN, [address] [address] Acute and subacute infective endocarditis 05/09/2025 Lab Requisition [facility] [address] [employer] [place], [place] [address] [phone] Ankita Gaviria APRN, [address] [phone] Metabolic encephalopathy documented as of this encounter Procedures Procedure Name Priority Date/Time Associated Diagnosis Comments CBC AND DIFFERENTIAL PANEL Routine 12/18/2024 10:20 AM CDT Acute and subacute infective endocarditis CREATININE / GFR Routine 12/18/2024 10:2 0 AM CDT Acute and subacute infective endocarditis COMPLETE BLOOD COUNT-W/DIFF Routine 12/18/2024 10:20 AM CDT Acute and subacute infective endocarditis C-REACTIVE PROTEIN Routine 12/18/2024 10 :20 AM CDT Acute and subacute infective endocarditis AST Routine 12/18/2024 10:20 AM CDT Acute and subacute infective endocarditis documented in this encounter Results * Complete Blood Count-W/Diff (12/18/2024 10:20 AM CDT) WBC 7.6 3.5 - 10.5 x10(9)/L 12/18/2024 3:57 PM CDT [facility] RBC 4.39 4.32 - 5.72 x10(12)/L 12/18/2024 3:57 PM CDT [facility] Hemoglobin 13.5 13.5 - 17.5 g/dL 12/18/2024 3:57 PM CDT [facility] HCT 40.5 38.8 - 50.0 % 12/18/2024 3:57 PM CDT [facility] MCV 92.3 80.0 - 100.0 fL 12/18/2024 3:57 PM CDT [facility] MCH 30.8 27.6 - 33.3 pg 12/18/2024 3:57 PM CDT [facility] MCHC 33.3 31.5 - 35.2 g/dL 12/18/2024 3:57 PM CDT [facility] RDW 13.0 11.9 - 15.5 % 12/18/2024 3:57 PM CDT [facility] Platelets 178 150 - 450 x10(9)/L 12/18/2024 3:57 PM CDT [facility] Automated NRBC 0 <=0 /100 WBC 12/18/2024 3:57 PM CDT [facility] Neutrophil Absolute 5.6 1.7 - 7.0 10(9)/L 12/18/2024 3:57 PM CDT [facility] Lymphocyte Absolute 1.1 1.0 - 4.8 10(9)/L 12/18/2024 3:57 PM CDT [facility] Monocyte Absolute 0.7 0.2 - 0.9 10(9)/L 12/18/2024 3:57 PM CDT [facility] Eosinophil Absolute 0.1 0.0 - 0.5 10(9)/L 12/18/2024 3:57 PM CDT [facility] Basophil Absolute 0.0 0.0 - 0.3 10(9)/L 12/18/2024 3:57 PM CDT [facility] Immature Granulocyte % 0.5 0.0 - 0.5 % 12/18/2024 3:57 PM CDT [facility] Blood Venipuncture / Unknown 12/18/2024 10:20 AM CDT 12/18/2024 3:25 PM CDT Ankita Gaviria POULTRY DRESSING WORKER, CAN WASHER LAB_1 Tabatha l Result Performing Organization Address [facility] Phone Number [facility] [address] [place] [address] * (ABNORMAL) C-Reactive Protein (12/18/2024 10:20 AM CDT) C-Reactive Protein 1.0(H) 0.0 - 0.5 mg/dL 12/18/2024 4:38 PM CDT [facility] Blood Venipuncture / Unknown 12/18/2024 10:20 AM CDT 12/18/2024 3:25 PM CDT Ankita Jha Khadra GENAO, CAN WASHER LAB_1 Tabatha l Result Performing Organization Address [facility] Phone Number [facility] [address] [place] [address] * Creatinine / GFR (12/18/2024 10:20 AM CDT) Creatinine 1.01 0.73 - 1.18 mg/dL 12/18/2024 4:38 PM CDT [facility] GFR, Estimated >60 >60 mL/min/1.7 3m2 12/18/2024 4:38 PM CDT [facility] Blood Venipuncture / Unknown 12/18/2024 10:20 AM CDT 12/18/2024 3:25 PM CDT us Ankita Smallshelenehalina POULTRY DRESSING WORKER, CAN WASHER LAB_1 Tabatha l Result Performing Organization Address [facility] Phone Number [facility] [address] [place] [address] * AST (12/18/2024 10:20 AM CDT) AST (SGOT) 33 10 - 40 U/L 12/18/2024 4:38 PM CDT [facility] Blood Venipuncture / Unknown 12/18/2024 10:20 AM CDT 12/18/2024 3:25 PM CDT us Ankita Gaviria POULTRY DRESSING WORKER, CAN WASHER LAB_1 Tabatha l Result [facility] [address] [place], [place] [address] documented in this encounter [...] encephalopathy documented in this encounter Care Teams Airframe Technical Officer Relationship Specialty Start Date End Date Sarah Mathews MD [address] [place], [place] [phone] PCP - General Family Practice 01/25/23 documented as of this encounter
--- OUTSIDE RECORDS SUMMARY | 2025-05-09 13:55 | XMS_ITS | Encounter Summary ---
Author Organization [facility] Address [address] [place] [address] Care Team Providers Care Dry Curer Name Role Phone Sarah Mathews MD Primary Care Provi franko Encounter Details Date Type Department Care Team (Late st Contact Info) Description 12/03/2024 Lab Requisition [facility] [address] [place], [place] [phone] Ankita Gaviria APRN, CHANGE MANAGEMENT DIRECTOR [address] [place], [place] [phone] Encounter for general adult medical examination without abnormal findings Social History Tobacco Use Types Packs/Day Years [...] st Contact Info) Description 04/24/2025 Lab Requisition [facility] [address] [place], [place] [phone] Ankita Gaviria APRN, CHANGE MANAGEMENT DIRECTOR [address] [place], [place] [phone] Acute and subacute infective endocarditis 05/08/2025 Lab Requisition [facility] [address] [address] Ankita Gaviria APRN, CHANGE MANAGEMENT DIRECTOR [address] [place] [phone] Acute and subacute infective endocarditis 05/08/2025 Lab Requisition [facility] [address] [place] [address] Ankita Gaviria CHILD CENTER ASSISTANT, CHANGE MANAGEMENT DIRECTOR [address] [place] [address] [phone] Acute and subacute infective endocarditis 05/09/2025 Lab Requisition [facility] [address] [address] Ankita Gaviria APRN, CHANGE MANAGEMENT DIRECTOR [address] [place] [phone] Metabolic encephalopathy documented as of this encounter Procedures Procedure Name Priority Date/Time Associated Diagnosis Comments CBC AND DIFFERENTIAL PANEL Routine 12/04/2024 10:45 AM CDT Encounter for general adult medical examination without abnormal findings COMPLETE BLOOD COUNT-W/DIFF Routine 12/04/2024 10:45 AM CDT Encounter for general adult medical examination without abnormal findings LIVER PANEL(HEPATIC FUNCTION PANEL) Routine 12/04/2024 10:45 AM CDT Encounter for general adult medical examination without abnormal findings COMPREHENSIVE METABOLIC PANEL Routine 12/04/2024 10:45 AM CDT Encounter for general adult medical examination without abnormal findings C-REACTIVE PROTEIN Routine 12/04/2024 10 :45 AM CDT Encounter for general adult medical examination without abnormal findings documented in this encounter Results * (ABNORMAL) C-Reactive Protein (12/04/2024 10:45 AM CDT) Pathologist [facility] C-Reactive Protein 0.9(H) 0.0 - 0.5 mg/dL 12/04/2024 5:59 PM CDT [facility] Blood Venipuncture / Unknown 12/04/2024 10:45 AM CDT 12/04/2024 5:13 PM CDT Ankita Yudelka Gaviria CHILD CENTER ASSISTANT, CHANGE MANAGEMENT DIRECTOR LAB_1 Tabatha l Result [facility] [address] * (ABNORMAL) Complete Blood Count-W/Diff (12/04/2024 10:45 AM CDT) Pathologist [facility] WBC 5.7 3.5 - 10.5 x10(9)/L 12/04/2024 5:33 PM CDT [facility] RBC 3.91(L) 4.32 - 5.72 x10(12)/L 12/04/2024 5:33 PM CDT [facility] Hemoglobin 12.0(L) 13.5 - 17.5 g/dL 12/04/2024 5:33 PM CDT [facility] HCT 35.6(L) 38.8 - 50.0 % 12/04/2024 5:33 PM CDT [facility] MCV 91.0 80.0 - 100.0 fL 12/04/2024 5:33 PM CDT [facility] MCH 30.7 27.6 - 33.3 pg 12/04/2024 5:33 PM CDT [facility] MCHC 33.7 31.5 - 35.2 g/dL 12/04/2024 5:33 PM CDT [facility] RDW 13.1 11.9 - 15.5 % 12/04/2024 5:33 PM CDT [facility] Platelets 155 150 - 450 x10(9)/L 12/04/2024 5:33 PM CDT [facility] Automated NRBC 0 <=0 /100 WBC 12/04/2024 5:33 PM CDT [facility] Neutrophil Absolute 3.7 1.7 - 7.0 10(9)/L 12/04/2024 5:33 PM CDT [facility] Lymphocyte Absolute 0.8(L) 1.0 - 4.8 10(9)/L 12/04/2024 5:33 PM CDT [facility] Monocyte Absolute 0.7 0.2 - 0.9 10(9)/L 12/04/2024 5:33 PM CDT [facility] Eosinophil Absolute 0.5 0.0 - 0.5 10(9)/L 12/04/2024 5:33 PM CDT [facility] Basophil Absolute 0.0 0.0 - 0.3 10(9)/L 12/04/2024 5:33 PM CDT [facility] Immature Granulocyte % 0.2 0.0 - 0.5 % 12/04/2024 5:33 PM CDT [facility] Blood Venipuncture / Unknown 12/04/2024 10:45 AM CDT 12/04/2024 5:14 PM CDT us Ankita Gaviria CHILD CENTER ASSISTANT, CHANGE MANAGEMENT DIRECTOR LAB_1 Tabatha l Result [facility] [address] * (ABNORMAL) Liver Panel (Hepatic Function Panel) (12/04/2024 10:45 AM CDT) Alkaline Phosphatase 127 40 - 150 U/L 12/04/2024 10:13 PM CDT [facility] Bilirubin, Total 0.6 0.2 - 1.2 mg/dL 12/04/2024 10:13 PM CDT [facility] Bilirubin, Direct 0.3 0.0 - 0.5 mg/dL 12/04/2024 10:13 PM CDT [facility] AST (SGOT) 81(H) 10 - 40 U/L 12/04/2024 10:13 PM CDT [facility] ALT (SGPT) 133(H) 0 - 55 U/L 12/04/2024 10:13 PM CDT [facility] Protein, Total 5.6(L) 6.4 - 8.3 g/dL 12/04/2024 10:13 PM CDT [facility] Albumin 2.5(L) 3.5 - 5.0 g/dL 12/04/2024 10:13 PM CDT [facility] Blood Venipuncture / Unknown 12/04/2024 10:45 AM CDT 12/04/2024 5:13 PM CDT us Ankita Smallskaren CHILD CENTER ASSISTANT, CHANGE MANAGEMENT DIRECTOR LAB_1 Tabatha l Result [facility] [address] [place] [address], [facility] * (ABNORMAL) Comp Metabolic Panel (12/04/2024 10:45 AM CDT) Sodium 136 136 - 145 mmol/L 12/04/2024 5:59 PM CDT [facility] Potassium 4.0 3.5 - 5.1 mmol/L 12/04/2024 5:59 PM CDT [facility] Chloride 107 98 - 109 mmol/L 12/04/2024 5:59 PM CDT [facility] CO2 20 20 - 29 mmol/L 12/04/2024 5:59 PM CDT [facility] Anion Gap 9 6 - 16 mmol/L 12/04/2024 5:59 PM CDT [facility] Calcium 8.8 8.4 - 10.4 mg/dL 12/04/2024 5:59 PM CDT [facility] BUN 25 7 - 26 mg/dL 12/04/2024 5:59 PM CDT [facility] Creatinine 0.79 0.73 - 1.18 mg/dL 12/04/2024 5:59 PM CDT [facility] Alkaline Phosphatase 127 40 - 150 U/L 12/04/2024 5:59 PM CDT [facility] AST (SGOT) 81(H) 10 - 40 U/L 12/04/2024 5:59 PM CDT [facility] ALT (SGPT) 133(H) 0 - 55 U/L 12/04/2024 5:59 PM CDT [facility] Bilirubin, Total 0.6 0.2 - 1.2 mg/dL 12/04/2024 5:59 PM CDT [facility] Protein, Total 5.6(L) 6.4 - 8.3 g/dL 12/04/2024 5:59 PM CDT [facility] Albumin 2.5(L) 3.5 - 5.0 g/dL 12/04/2024 5:59 PM CDT [facility] Glucose 193(H) 70 - 100 mg/dL 12/04/2024 5:59 PM CDT [facility] Comment:The given reference range is for the fasting state. Non-fasting reference range for glucose is 70 - 180 mg/dL. GFR, Estimated >60 >60 mL/min/1.7 3m2 12/04/2024 5:59 PM CDT [facility] Hours Fasting 0.0 8 - 12 Hours 12/04/2024 5:59 PM CDT [facility] Comment:Patient has indicate d a non-fasting status. Blood Venipuncture / Unknown 12/04/2024 10:45 AM CDT 12/04/2024 5:13 PM CDT us Ankita Gaviria CHILD CENTER ASSISTANT, CHANGE MANAGEMENT DIRECTOR LAB_1 Tabatha l Result [facility] [address] [place], [place] [id number] documented in this encounter Visit Diagnoses Diagnosis Encounter for general adult medical examination without abnormal findings Routine general medical examination at a health care facility Acute and subacute infective endocarditis Acute and subacute infective endocarditis in diseases classified elsewhere Acute and subacute infective endocarditis Acute and subacute infective endocarditis in diseases classified elsewhere Acute and subacute infective endocarditis Acute and subacute infective endocarditis in diseases classified elsewhere Metabolic encephalopathy documented in this encounter Care Teams Dry Curer Relationship Specialty Start Date End Date Sarah Mathews MD [address] [place] [address] PCP - General Family Practice 01/25/23 documented as of this encounter
--- OUTSIDE RECORDS SUMMARY | 2025-05-09 13:55 | XMS_ITS | Encounter Summary ---
Author Organization [email or web address] Address [address] [place] [address] Care Team Providers Care Area Secretary Name Role Phone Sarah Mathews MD Primary Care Provi franko Encounter Details Date Type Department Care Team (Late st Contact Info) Description 01/02/2025 Lab Requisition [facility] [address] [place], [place] [address] Ankita Gaviria APRN, [place] [address] [place], [place] [phone] Acute and subacute infective endocarditis Social History [...] st Contact Info) Description 04/24/2025 Lab Requisition [facility] [address] [place] [address] Ankita Gaviria APRN, JET INSPECTOR [address] [place], [place] [phone] Acute and subacute infective endocarditis 05/08/2025 Lab Requisition [facility] [address] [place] [address] Ankita Gaviria APRN, [address] [phone] Acute and subacute infective endocarditis 05/08/2025 Lab Requisition [facility] [address] [place] [address] Ankita Gaviria APRN, [address] [phone] Acute and subacute infective endocarditis 05/09/2025 Lab Requisition [facility] [address] [place], [place] [address] [phone] Ankita Gaviria APRN, [address] [phone] Metabolic encephalopathy documented as of this encounter Procedures Procedure Name Priority Date/Time Associated Diagnosis Comments CBC AND DIFFERENTIAL PANEL Routine 01/15/2025 9:55 AM CDT Acute and subacute infective endocarditis CREATININE / GFR Routine 01/15/2025 9:55 AM CDT Acute and subacute infective endocarditis COMPLETE BLOOD COUNT-W/DIFF Routine 01/15/2025 9:55 AM CDT Acute and subacute infective endocarditis C-REACTIVE PROTEIN Routine 01/15/2025 9: 55 AM CDT Acute and subacute infective endocarditis AST Routine 01/15/2025 9:55 AM CDT Acute and subacute infective endocarditis documented in this encounter Results * Complete Blood Count-W/Diff (01/15/2025 9:55 AM CDT) WBC 6.1 3.5 - 10.5 x10(9)/L 01/15/2025 4:16 PM CDT [facility] RBC 4.47 4.32 - 5.72 x10(12)/L 01/15/2025 4:16 PM CDT [facility] Hemoglobin 13.5 13.5 - 17.5 g/dL 01/15/2025 4:16 PM CDT [facility] HCT 41.6 38.8 - 50.0 % 01/15/2025 4:16 PM CDT [facility] MCV 93.1 80.0 - 100.0 fL 01/15/2025 4:16 PM CDT [facility] MCH 30.2 27.6 - 33.3 pg 01/15/2025 4:16 PM CDT [facility] MCHC 32.5 31.5 - 35.2 g/dL 01/15/2025 4:16 PM CDT [facility] RDW 13.2 11.9 - 15.5 % 01/15/2025 4:16 PM CDT [facility] Platelets 191 150 - 450 x10(9)/L 01/15/2025 4:16 PM CDT [facility] Automated NRBC 0 <=0 /100 WBC 01/15/2025 4:16 PM CDT [facility] Neutrophil Absolute 4.4 1.7 - 7.0 10(9)/L 01/15/2025 4:16 PM CDT [facility] Lymphocyte Absolute 1.1 1.0 - 4.8 10(9)/L 01/15/2025 4:16 PM CDT [facility] Monocyte Absolute 0.5 0.2 - 0.9 10(9)/L 01/15/2025 4:16 PM CDT [facility] Eosinophil Absolute 0.1 0.0 - 0.5 10(9)/L 01/15/2025 4:16 PM CDT [facility] Basophil Absolute 0.0 0.0 - 0.3 10(9)/L 01/15/2025 4:16 PM CDT [facility] Immature Granulocyte % 0.3 0.0 - 0.5 % 01/15/2025 4:16 PM CDT [facility] Blood Venipuncture / Unknown 01/15/2025 9:55 AM CDT 01/15/2025 1:42 PM CDT Ankita Jha Khadra LARAN, JET INSPECTOR LAB_1 Tabatha l Result Performing Organization Address [facility] Phone Number [facility] [address] [place] [address] * (ABNORMAL) C-Reactive Protein (01/15/2025 9:55 AM CDT) C-Reactive Protein 1.5(H) 0.0 - 0.5 mg/dL 01/15/2025 2:01 PM CDT [facility] Blood Venipuncture / Unknown 01/15/2025 9:55 AM CDT 01/15/2025 1:34 PM CDT Ankita Yudelka Khadra GENAO, JET INSPECTOR LAB_1 Tabatha l Result Performing Organization Address [facility] Phone Number [facility] [address] [place] [address] * Creatinine / GFR (01/15/2025 9:55 AM CDT) Creatinine 1.09 0.73 - 1.18 mg/dL 01/15/2025 2:01 PM CDT [facility] GFR, Estimated >60 >60 mL/min/1.7 3m2 01/15/2025 2:01 PM CDT [facility] Blood Venipuncture / Unknown 01/15/2025 9:55 AM CDT 01/15/2025 1:34 PM CDT Ankita Jha Khadra GENAO, JET INSPECTOR LAB_1 Tabatha l Result Performing Organization Address [facility] Phone Number [facility] [address] [place] [address] * AST (01/15/2025 9:55 AM CDT) AST (SGOT) 33 10 - 40 U/L 01/15/2025 2:01 PM CDT [facility] Blood Venipuncture / Unknown 01/15/2025 9:55 AM CDT 01/15/2025 1:34 PM CDT us Ankita Gaviria FARM TRACTOR MECHANIC, JET INSPECTOR LAB_1 Tabatha l Result [facility] [address] [place], [place] [phone] [place] [address] documented in this encounter Visit Diagnoses Diagnosis [...] encephalopathy documented in this encounter Care Teams Area Secretary Relationship Specialty Start Date End Date Sarah Mathews MD [address] [place] [address] PCP - General Family Practice 01/25/23 documented as of this encounter
--- OUTSIDE RECORDS SUMMARY | 2025-05-09 13:56 | XMS_ITS | Encounter Summary ---
Author Organization [facility] Address [address] [place] [address] Care Team Providers Care Food Products Tester Name Role Phone Sarah Mathews MD Primary Care Provi franko Encounter Details Date Type Department Care Team (Late st Contact Info) Description 03/06/2025 Lab Requisition [facility] [address] [place], [place] [address] Ankita Gaviria APRN, [place] [id number] [place], [place] [phone] Acute and subacute infective endocarditis Social History [...] st Contact Info) Description 04/24/2025 Lab Requisition [facility] [address] [place], [place] [address] Ankita Gaviria APRN, STRAND BUNCHER FINE WIRE [address] [place], [place] [phone] Acute and subacute infective endocarditis 05/08/2025 Lab Requisition [facility] [address] [place] [address] Ankita Gaviria APRN, [address] [phone] Acute and subacute infective endocarditis 05/08/2025 Lab Requisition [facility] [address] [place] [address] Ankita Gaviria INTERPRETATIVE DANCER, [address] [phone] Acute and subacute infective endocarditis 05/09/2025 Lab Requisition [facility] [address] [place], [place] [address] [phone] Ankita Gaviria APRN, [address] [phone] Metabolic encephalopathy documented as of this encounter Procedures Procedure Name Priority Date/Time Associated Diagnosis Comments CBC AND DIFFERENTIAL PANEL Routine 03/26/2025 2:35 PM CDT Acute and subacute infective endocarditis CREATININE / GFR Routine 03/26/2025 2:35 PM CDT Acute and subacute infective endocarditis COMPLETE BLOOD COUNT-W/DIFF Routine 03/26/2025 2:35 PM CDT Acute and subacute infective endocarditis C-REACTIVE PROTEIN Routine 03/26/2025 2: 35 PM CDT Acute and subacute infective endocarditis AST Routine 03/26/2025 2:35 PM CDT Acute and subacute infective endocarditis documented in this encounter Results * (ABNORMAL) Complete Blood Count-W/Diff (03/26/2025 2:35 PM CDT) WBC 5.7 3.5 - 10.5 x10(9)/L 03/26/2025 6:02 PM CDT [facility] RBC 4.31(L) 4.32 - 5.72 x10(12)/L 03/26/2025 6:02 PM CDT [facility] Hemoglobin 13.5 13.5 - 17.5 g/dL 03/26/2025 6:02 PM CDT [facility] HCT 37.6(L) 38.8 - 50.0 % 03/26/2025 6:02 PM CDT [facility] MCV 87.2 80.0 - 100.0 fL 03/26/2025 6:02 PM CDT [facility] MCH 31.3 27.6 - 33.3 pg 03/26/2025 6:02 PM CDT [facility] MCHC 35.9(H) 31.5 - 35.2 g/dL 03/26/2025 6:02 PM CDT [facility] RDW 12.8 11.9 - 15.5 % 03/26/2025 6:02 PM CDT [facility] Platelets 142(L) 150 - 450 x10(9)/L 03/26/2025 6:02 PM CDT [facility] Automated NRBC 0 <=0 /100 WBC 03/26/2025 6:02 PM CDT [facility] Neutrophil Absolute 3.5 1.7 - 7.0 10(9)/L 03/26/2025 6:02 PM CDT [facility] Lymphocyte Absolute 1.1 1.0 - 4.8 10(9)/L 03/26/2025 6:02 PM CDT [facility] Monocyte Absolute 0.8 0.2 - 0.9 10(9)/L 03/26/2025 6:02 PM CDT [facility] Eosinophil Absolute 0.2 0.0 - 0.5 10(9)/L 03/26/2025 6:02 PM CDT [facility] Basophil Absolute 0.0 0.0 - 0.3 10(9)/L 03/26/2025 6:02 PM CDT [facility] Immature Granulocyte % 0.4 0.0 - 0.5 % 03/26/2025 6:02 PM CDT [facility] Blood VENOUS BLOOD SPECIMEN / Unknown Venipuncture / Unknown 03/26/2025 2:35 PM CDT 03/26/2025 5:22 PM CDT us Ankita Gaviria APRN, STRAND BUNCHER FINE WIRE LAB_1 Tabatha l Result Performing Organization Address [facility] Phone Number [facility] [address] [place] [address] * C-Reactive Protein (03/26/2025 2:35 PM CDT) C-Reactive Protein <0.5 0.0 - 0.5 mg/dL 03/26/2025 6:11 PM CDT [facility] Blood Venipuncture / Unknown 03/26/2025 2:35 PM CDT 03/26/2025 5:21 PM CDT us Ankita Gaviria APRN, STRAND BUNCHER FINE WIRE LAB_1 Tabatha l Result Performing Organization Address [facility] Phone Number [facility] [address] [place] [address] * (ABNORMAL) Creatinine / GFR (03/26/2025 2:35 PM CDT) Creatinine 1.47(H) 0.73 - 1.18 mg/dL 03/26/2025 6:11 PM CDT [facility] GFR, Estimated 46(L) >60 mL/min/1.7 3m2 03/26/2025 6:11 PM CDT [facility] Blood Venipuncture / Unknown 03/26/2025 2:35 PM CDT 03/26/2025 5:21 PM CDT Narrative [facility] - 03/26/2025 6:11 PM CDT The National Kidney Disease Education Program suggests measuring Cystatin C in patients with eGFRcrea of 45 to 59 ml/min/1.73^2 who do not have other markers of kidney damage (i.e. elevated urine Albumin/Creatinine Ratio or a prior Cystatin C confirming the presence of chronic kidney disease). us Ankita Claytonr INTERPRETATIVE DANCER, STRAND BUNCHER FINE WIRE LAB_1 Tabatha l Result Performing Organization Address City/[facility]/ZIP Co de Phone Number [facility] [address] * AST (03/26/2025 2:35 PM CDT) AST (SGOT) 29 16 - 46 U/L 03/26/2025 6:11 PM CDT [facility] Blood Venipuncture / Unknown 03/26/2025 2:35 PM CDT 03/26/2025 5:21 PM CDT Ankita Claytonr INTERPRETATIVE DANCER, STRAND BUNCHER FINE WIRE LAB_1 Tabatha l Result Performing Organization Address [facility] Co de Phone Number [facility] [address] documented in this encounter Visit Diagnoses Diagnosis [...] encephalopathy documented in this encounter Care Teams Food Products Tester Relationship Specialty Start Date End Date Sarah Mathews MD [address] [place] [address] PCP - General Family Practice 01/25/23 documented as of this encounter
--- OUTSIDE RECORDS SUMMARY | 2025-05-09 13:56 | XMS_ITS | Clinical Summary ---
Author Organization [facility] Address [address] [place] [address] Care Team Providers Care Switch House Operator Name Role Phone Sarah Mathews MD Primary Care [facility] Source Comments You are receiving this document as you are listed as the primary care provider,follow-up provider, or the patient has been referred to you for consultation.This is in compliance with the Medicare andOhio[facility] Cent[facility]aid EHR Incentive Program,which states Providers who transition their patient to another setting of careor provider of care or refers their patient to another provider of care shouldprovide summary care record for each transition of care or referral. [facility] Allerg[facility] Active Allergy Reactions Criticality Noted Date Comments Fish Oil Blisters Medium 11/24/2021 Turmeric Blisters Medium 01/08/2020 Medications aspirin EC 81 MG enteric coated tablet Take 1 Tablet by mouth daily. 90 Tablet 3 1 Active acetaminophen (TYLENOL) 500 MG tablet Take 1-2 Tablets by mouth three times a day as needed. 1 Active multivitamin (THERAGRAN) tablet Take 1 Tablet by mouth daily. Active amLODIPine (NORVASC) 2.5 MG tabletIndications:E ssential hypertension (HRC) Take 1 Tablet (2.5 mg) by mouth daily. 90 Tablet 3 4 Active atorvastatin (LIPITOR) 40 MG tabletIndications:H istory of CVA with residual deficit,Mixed hyperlipidemia (HRC) Take 1 Tablet (40 mg) by mouth daily. 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 Pizarro without complication. Heart block AV second degree 11/30/2021 Cardiac pacemaker in situ 11/30/2021 Essential hypertension 02/19/2021 Malignant neoplasm of skin 11/18/2008 Overview (05/11/2017): LW Modifier: s/p Mohs surgery left superior islam ; Basal Cell Ca Skin NOS Malignant neoplasm of skin 04/15/2008 Overview (05/11/2017): LW Modifier: s/p Mohs surgery ; Squamous Cell Ca Skin NOS Sleep apnea 02/23/2003 Overview (05/11/2017): Obstructive Sleep Apnea Hypopnea Resolved Problems Problem Noted Date Diagnosed Date Resolved Date Prediabetes 01/25/2023 02/15/2023 Closed fracture of one rib o f left side with routine healing 02/19/2021 01/25/2023 Multiple contusions 02/19/2021 01/26/20 23 Elevated blood pressure 02/26/2016 05/0 05/2023 Encounters Date Type Department Care Team Description 04/17/2025 [facility] [address] [facility] [place] [address] Bebler, Ankita A, MAST MAKER, SALES MARKETING COORDINATOR Acute and subacute infective endocarditis 04/10/2025 [facility] [address] [place] [place] [address] Bebler, Ankita A, MAST MAKER, SALES MARKETING COORDINATOR Acute and subacute infective endocarditis 04/03/2025 [facility] [address] [place] [place] [address] Bebler, Ankita A, MAST MAKER, SALES MARKETING COORDINATOR Acute and subacute infective endocarditis 04/02/2025 [facility] [address] [place] [place] [address] Bebler, Ankita A, MAST MAKER, SALES MARKETING COORDINATOR Other specified mononeuropathies of bilateral lower limbs 03/27/2025 [facility] [address] [place] [place] [address] Bebler, Ankita A, MAST MAKER, SALES MARKETING COORDINATOR Acute and subacute infective endocarditis 03/14/2025 [facility] [address] [place] [place] [address] Bebler, Ankita A, MAST MAKER, SALES MARKETING COORDINATOR Acute and subacute infective endocarditis 03/14/2025 [facility] [address] [place] [address] Bebler, Ankita A, MAST MAKER, SALES MARKETING COORDINATOR Acute and subacute infective endocarditis 03/06/2025 [facility] [address] [place] [address] Bebler, Ankita A, MAST MAKER, SALES MARKETING COORDINATOR Acute and subacute infective endocarditis 02/27/2025 [facility] [address] [place] [address] Bebler, Ankita A, MAST MAKER, SALES MARKETING COORDINATOR Acute and subacute infective endocarditis 02/20/2025 [facility] [address] [place] [address] Bebler, Ankita A, MAST MAKER, SALES MARKETING COORDINATOR Acute and subacute infective endocarditis 02/20/2025 [facility] [address] [place] [address] Bebler, Ankita A, MAST MAKER, SALES MARKETING COORDINATOR Acute and subacute infective endocarditis 02/13/2025 [facility] [address] [place] [address] Bebler, Ankita A, MAST MAKER, SALES MARKETING COORDINATOR Acute and subacute infective endocarditis 02/06/2025 [facility] [address] [place] [address] Bebler, Ankita A, MAST MAKER, SALES MARKETING COORDINATOR Acute and subacute infective endocarditis 01/30/2025 [facility] [address] [place] [address] Bebler, Ankita A, MAST MAKER, SALES MARKETING COORDINATOR Acute and subacute endocarditis, unspecified from Last 3 Months Immunizations Immunization Administration Dates Next Due HepA Adult (19+ yrs) 11/30/2000,12/31/1999 IPV (Polio) 12/31/1999 Moderna Bivalent 12+ 06/12/2022 Moderna COVID-19 12+ 03/16/2024,08/15/2023 Moderna Monovalent 12+ 12/13/2020,11/15/2020 PCV13 (Prevnar) 02/26/2016 PPSV23 (Pneumovax) 01/17/2019,12/12/2001 Pfizer Monovalent 12+ 03/04/2022 Pfizer Monovalent 12+ Purple Top 08/28/2021 TDAP (BOOSTRIX) 02/25/2014 Td 04/23/2005,12/31/1999 Tdap 02/19/2021 Typhoid (Typhim Vi, IM) 04/09/2004,12/31/1999 Zoster RZV (Shingrix) 12/21/2021 Family History Medical History Relation Name Comments Diabetes Mother Diabetes Daughter Relation Name Status Comments Mother Daughter Social History Tobacco Use Types Packs/Day Years [...] on file Sexual Orientation Not on file Last Filed Vital Signs Vital Sign Reading Time Taken Comments Blood Pressure 138/71 03/16/2024 11:16 AM CDT Pulse 67 03/16/2024 11:16 AM CDT Temperature 36.4 C (97.6 F) 02/20/2021 5:12 AM CDT Respiratory Rate 17 02/20/2021 5:12 AM CDT Oxygen Saturation 99% 02/20/2021 5:12 AM CDT Inhaled Oxygen Concentration - - Weight 94.8 kg (209 lb) 03/16/2024 11:05 AM CDT Height 185.4 cm (6' 1) 03/16/2024 11:05 AM CDT Body Mass Index 27.57 03/16/2024 11:05 AM CDT Plan of Treatment Upcoming Encounters Date Type Department Care Team (Late st Contact Info) Description 04/24/2025 [facility] [address] [place] [address] Ankita Gaviria APRN, [address] [id number] Acute and subacute infective endocarditis 05/08/2025 [facility] [address] [place] [address] Ankita Gaviria APRN, [address] 795410 [phone] Acute and subacute infective endocarditis 05/08/2025 [facility] [address] [place] [address] Ankita Gaviria APRN, [address] [phone] Acute and subacute infective endocarditis 05/09/2025 [facility] [address] [place] [address] Ankita Gaviria MAST MAKER, SALES MARKETING COORDINATOR [address] [place] [address] Metabolic encephalopathy Health Maintenance Due Date Last Done Comments Diabetes: Eye Exam 1940 Hep B Immunization Discussion 1940 Pneumococcal PCV20 Immunization Discussion 1940 RSV Vaccine (1 - 1-dose 75+ series) 2013 Zoster/Shingles Vaccine (2 of 2) 02/15/2022 12/21/2021 COVID-19 Vaccine ( season) 2024 03/16/2024, 08/15/2023, 06/12/2022, Additional history exists Diabetes: Foot Exam 08/18/2024 08/18/2023, 08/18/2023 (Completed) Medicare Annual Wellness Visit 09/19/2024 03/16/2024, 01/25/2023, 12/16/2021, Additional history exists Diabetes: HGBA1C 04/24/2025 10/25/2024, 02/2025, 03/16/2024, Additional history exists Influenza Vaccine (#1) 2025 Diabetes: Creatinine 05/07/2026 05/07/2025, 04/30/2025, 04/23/2025, Additional history exists Diabetes: Lipid Panel 03/16/2029 03/16/2024 , 08/18/2023, 02/08/2023, Additional history exists DTaP/Tdap/Td Vaccine (3 - Tdap) 02/19/2031 02/19/2021, 02/25/2014, 04/23/2005, Additional history exists HepA Vaccine Completed 11/30/2000, 12/31/1999 Pneumococcal Vaccine 50+ Yrs Completed 09/2018, 02/26/2016, 12/12/2001 HepB Vaccine Aged Out No longer eligi ble based on patient's age to complete this topic Hib Vaccine Aged Out No longer eligi ble based on patient's age to complete this topic MCV4 Vaccine Aged Out No longer eligi ble based on patient's age to complete this topic Meningococcal B Vaccine Aged Out No l onger eligible based on patient's age to complete this topic Procedures Procedure Name Priority Date/Time Associated Diagnosis Comments COMPLETE BLOOD COUNT-W/DIFF Routine 05/07/2025 7:43 AM CDT Acute and subacute infective endocarditis CBC AND DIFFERENTIAL PANEL Routine 05/07/2025 7:43 AM CDT Acute and subacute infective endocarditis C-REACTIVE PROTEIN Routine 05/07/2025 7: 43 AM CDT Acute and subacute infective endocarditis CREATININE / GFR Routine 05/07/2025 7:43 AM CDT Acute and subacute infective endocarditis AST Routine 05/07/2025 7:43 AM CDT Acute and subacute infective endocarditis COMPLETE BLOOD COUNT-W/DIFF Routine 04/30/2025 9:56 AM CDT Acute and subacute infective endocarditis CBC AND DIFFERENTIAL PANEL Routine 04/30/2025 9:56 AM CDT Acute and subacute infective endocarditis C-REACTIVE PROTEIN Routine 04/30/2025 9: 56 AM CDT Acute and subacute infective endocarditis CREATININE / GFR Routine 04/30/2025 9:56 AM CDT Acute and subacute infective endocarditis AST Routine 04/30/2025 9:56 AM CDT Acute and subacute infective endocarditis COMPLETE BLOOD COUNT-W/DIFF Routine 04/23/2025 10:40 AM CDT Acute and subacute infective endocarditis CBC AND DIFFERENTIAL PANEL Routine 04/23/2025 10:40 AM CDT Acute and subacute infective endocarditis C-REACTIVE PROTEIN Routine 04/23/2025 10 :40 AM CDT Acute and subacute infective endocarditis CREATININE / GFR Routine 04/23/2025 10:4 0 AM CDT Acute and subacute infective endocarditis AST Routine 04/23/2025 10:40 AM CDT Acute and subacute infective endocarditis COMPLETE BLOOD COUNT-W/DIFF Routine 04/16/2025 8:43 AM CDT Acute and subacute infective endocarditis CBC AND DIFFERENTIAL PANEL Routine 04/16/2025 8:43 AM CDT Acute and subacute infective endocarditis C-REACTIVE PROTEIN Routine 04/16/2025 8: 43 AM CDT Acute and subacute infective endocarditis CREATININE / GFR Routine 04/16/2025 8:43 AM CDT Acute and subacute infective endocarditis AST Routine 04/16/2025 8:43 AM CDT Acute and subacute infective endocarditis COMPLETE BLOOD COUNT-W/DIFF Routine 04/09/2025 11:47 AM CDT Acute and subacute infective endocarditis CBC AND DIFFERENTIAL PANEL Routine 04/09/2025 11:47 AM CDT Acute and subacute infective endocarditis C-REACTIVE PROTEIN Routine 04/09/2025 11 :47 AM CDT Acute and subacute infective endocarditis CREATININE / GFR Routine 04/09/2025 11:4 7 AM CDT Acute and subacute infective endocarditis AST Routine 04/09/2025 11:47 AM CDT Acute and subacute infective endocarditis COMPLETE BLOOD COUNT-W/DIFF Routine 04/05/2025 2:40 PM CDT Other specified mononeuropathies of bilateral lower limbs CBC AND DIFFERENTIAL PANEL Routine 04/05/2025 2:40 PM CDT Other specified mononeuropathies of bilateral lower limbs COMPLETE BLOOD COUNT-W/DIFF Routine 04/02/2025 8:00 AM CDT Acute and subacute infective endocarditis CBC AND DIFFERENTIAL PANEL Routine 04/02/2025 8:00 AM CDT Acute and subacute infective endocarditis C-REACTIVE PROTEIN Routine 04/02/2025 8: 00 AM CDT Acute and subacute infective endocarditis CREATININE / GFR Routine 04/02/2025 8:00 AM CDT Acute and subacute infective endocarditis AST Routine 04/02/2025 8:00 AM CDT Acute and subacute infective endocarditis COMPLETE BLOOD COUNT-W/DIFF Routine 03/26/2025 2:35 PM CDT Acute and subacute infective endocarditis CBC AND DIFFERENTIAL PANEL Routine 03/26/2025 2:35 PM CDT Acute and subacute infective endocarditis C-REACTIVE PROTEIN Routine 03/26/2025 2: 35 PM CDT Acute and subacute infective endocarditis CREATININE / GFR Routine 03/26/2025 2:35 PM CDT Acute and subacute infective endocarditis AST Routine 03/26/2025 2:35 PM CDT Acute and subacute infective endocarditis COMPLETE BLOOD COUNT-W/DIFF Routine 03/19/2025 11:45 AM CDT Acute and subacute infective endocarditis CBC AND DIFFERENTIAL PANEL Routine 03/19/2025 11:45 AM CDT Acute and subacute infective endocarditis C-REACTIVE PROTEIN Routine 03/19/2025 11 :45 AM CDT Acute and subacute infective endocarditis AST Routine 03/19/2025 11:45 AM CDT Acute and subacute infective endocarditis CREATININE / GFR Routine 03/19/2025 11:4 5 AM CDT Acute and subacute infective endocarditis COMPLETE BLOOD COUNT-W/DIFF Routine 03/12/2025 9:30 AM CDT Acute and subacute infective endocarditis CBC AND DIFFERENTIAL PANEL Routine 03/12/2025 9:30 AM CDT Acute and subacute infective endocarditis C-REACTIVE PROTEIN Routine 03/12/2025 9: 30 AM CDT Acute and subacute infective endocarditis CREATININE / GFR Routine 03/12/2025 9:30 AM CDT Acute and subacute infective endocarditis AST Routine 03/12/2025 9:30 AM CDT Acute and subacute infective endocarditis COMPLETE BLOOD COUNT-W/DIFF Routine 03/05/2025 10:05 AM CDT Acute and subacute infective endocarditis CBC AND DIFFERENTIAL PANEL Routine 03/05/2025 10:05 AM CDT Acute and subacute infective endocarditis C-REACTIVE PROTEIN Routine 03/05/2025 10 :05 AM CDT Acute and subacute infective endocarditis CREATININE / GFR Routine 03/05/2025 10:0 5 AM CDT Acute and subacute infective endocarditis AST Routine 03/05/2025 10:05 AM CDT Acute and subacute infective endocarditis COMPLETE BLOOD COUNT-W/DIFF Routine 02/26/2025 1:05 PM CDT Acute and subacute infective endocarditis CBC AND DIFFERENTIAL PANEL Routine 02/26/2025 1:05 PM CDT Acute and subacute infective endocarditis C-REACTIVE PROTEIN Routine 02/26/2025 1: 05 PM CDT Acute and subacute infective endocarditis CREATININE / GFR Routine 02/26/2025 1:05 PM CDT Acute and subacute infective endocarditis AST Routine 02/26/2025 1:05 PM CDT Acute and subacute infective endocarditis COMPLETE BLOOD COUNT-W/DIFF Routine 02/19/2025 11:12 AM CDT Acute and subacute infective endocarditis CBC AND DIFFERENTIAL PANEL Routine 02/19/2025 11:12 AM CDT Acute and subacute infective endocarditis C-REACTIVE PROTEIN Routine 02/19/2025 11 :12 AM CDT Acute and subacute infective endocarditis CREATININE / GFR Routine 02/19/2025 11:1 2 AM CDT Acute and subacute infective endocarditis AST Routine 02/19/2025 11:12 AM CDT Acute and subacute infective endocarditis COMPLETE BLOOD COUNT-W/DIFF Routine 02/12/2025 8:10 AM CDT Acute and subacute endocarditis, unspecified CBC AND DIFFERENTIAL PANEL Routine 02/12/2025 8:10 AM CDT Acute and subacute endocarditis, unspecified C-REACTIVE PROTEIN Routine 02/12/2025 8: 10 AM CDT Acute and subacute endocarditis, unspecified CREATININE / GFR Routine 02/12/2025 8:10 AM CDT Acute and subacute endocarditis, unspecified AST Routine 02/12/2025 8:10 AM CDT Acute and subacute endocarditis, unspecified LIPID PANEL & DIRECT LDL (IF NEEDED) Routine 03/16/2024 12:50 PM CDT Type 2 diabetes mellitus without complication, without long-term current use of insulin (HRC) HGB A1C Routine 03/16/2024 12:50 PM CDT Type 2 diabetes mellitus without complication, without long-term current use of insulin (HRC) from Last 3 Months or Most Recently Relevant to Health Maintenance Results * (ABNORMAL) Creatinine / GFR (05/07/2025 7:43 AM CDT) Only the most recent of13 resultswithin the time period is included. Creatinine 1.35(H) 0.73 - 1.18 mg/dL 05/07/2025 1:57 PM [facility] GFR, Estimated 51(L) >60 mL/min/1.7 3m2 05/07/2025 1:57 PM [facility] Blood Venipuncture / Unknown 05/07/2025 7:43 AM CDT 05/07/2025 1:37 PM CDT Narrative [facility] - 05/07/2025 1:57 PM CDT The National Kidney Disease Education Program suggests measuring Cystatin C in patients with eGFRcrea of 45 to 59 ml/min/1.73^2 who do not have other markers of kidney damage (i.e. elevated urine Albumin/Creatinine Ratio or a prior Cystatin C confirming the presence of chronic kidney disease). us Ankita Gaviria APRN, SALES MARKETING COORDINATOR LAB_1 Tabatha le Result [facility] CLIA: [id number] [address] * (ABNORMAL) Complete Blood Count-W/Diff (05/07/2025 7:43 AM CDT) Only the most recent of14 resultswithin the time period is included. WBC 6.4 3.5 - 10.5 x10(9)/L 05/07/2025 1:48 PM [facility] RBC 4.58 4.32 - 5.72 x10(12)/L 05/07/2025 1:48 PM [facility] Hemoglobin 14.1 13.5 - 17.5 g/dL 05/07/2025 1:48 PM [facility] HCT 43.7 38.8 - 50.0 % 05/07/2025 1:48 PM [facility] MCV 95.4 80.0 - 100.0 fL 05/07/2025 1:48 PM [facility] MCH 30.8 27.6 - 33.3 pg 05/07/2025 1:48 PM [facility] MCHC 32.3 31.5 - 35.2 g/dL 05/07/2025 1:48 PM [facility] RDW 14.8 11.9 - 15.5 % 05/07/2025 1:48 PM [facility] Platelets 126(L) 150 - 450 x10(9)/L 05/07/2025 1:48 PM [facility] Automated NRBC 0 <=0 /100 WBC 05/07/2025 1:48 PM [facility] Neutrophil Absolute 4.5 1.7 - 7.0 10(9)/L 05/07/2025 1:48 PM [facility] Lymphocyte Absolute 1.1 1.0 - 4.8 10(9)/L 05/07/2025 1:48 PM [facility] Monocyte Absolute 0.7 0.2 - 0.9 10(9)/L 05/07/2025 1:48 PM [facility] Eosinophil Absolute 0.1 0.0 - 0.5 10(9)/L 05/07/2025 1:48 PM [facility] Basophil Absolute 0.0 0.0 - 0.3 10(9)/L 05/07/2025 1:48 PM [facility] Immature Granulocyte % 0.3 0.0 - 0.5 % 05/07/2025 1:48 PM [facility] Blood Venipuncture / Unknown 05/07/2025 7:43 AM CDT 05/07/2025 1:39 PM CDT Ankita Gaviria MAST MAKER, SALES MARKETING COORDINATOR LAB_1 Tabatha l Result [facility] CLIA: [id number] [address] * C-Reactive Protein (05/07/2025 7:43 AM CDT) Only the most recent of13 resultswithin the time period is included. [facility] C-Reactive Protein 0.5 0.0 - 0.5 mg/dL 05/07/2025 1:57 PM T [facility] Blood Venipuncture / Unknown 05/07/2025 7:43 AM CDT 05/07/2025 1:37 PM CDT Ankita Gaviria BIRGIT, SALES MARKETING COORDINATOR LAB_1 Tabatha l Result Performing Organization Address [facility] de Phone Number [facility] CLIA: [id number] [address] * AST (05/07/2025 7:43 AM CDT) Only the most recent of13 resultswithin the time period is included. AST (SGOT) 40 16 - 46 U/L 05/07/2025 1:57 PM CDT [facility] Blood Venipuncture / Unknown 05/07/2025 7:43 AM CDT 05/07/2025 1:37 PM CDT Ankita Smallskaren GENAO, SALES MARKETING COORDINATOR LAB_1 Tabatha l Result Performing Organization Address [facility] Phone Number [facility] CLIA: [id number] [facility] [address] * (ABNORMAL) Lipid Panel & Direct LDL (if Needed) (03/16/2024 12:50 PM CDT) Cholesterol 145 0 - 199 mg/dL 03/16/2024 7:42 PM [facility] Triglyceride 237(H) <=149 mg/dL 03/16/2024 7:42 PM [facility] HDL Cholesterol 39(L) >=40 mg/dL 7:42 PM [facility] LDL, Calculated 59 <130 mg/dL 7:42 PM [facility] Non HDL Chol, Calculated 106 <=159 mg/dL 03/16/2024 7:42 PM [facility] Cholesterol/HDL Ratio 3.7 <=5.0 03/16/2024 7:42 PM [facility] Hours Fasting 0.0 8 - 12 Hours 03/16/2024 7:42 PM [facility] Blood Venipuncture / Unknown 03/16/2024 12:50 PM CDT 03/16/2024 12:51 PM CDT Sarah Carter MD LAB_1 Fin al Result Performing Organization Address City/[facility]/ZIP Co de Phone Number [facility] [address] [place] [address], [facility] * (ABNORMAL) Hgb A1C (03/16/2024 12:50 PM CDT) Hemoglobin A1C 7.2(H) <=5.6 % 03/17/2024 8:33 AM CDT [facility] Estimated Average Glucose (Calc) 160 < 117 mg/dL 03/17/2024 8:33 AM CDT [facility] Comment:Estimated average gl ucose (eAG) converts A1c into glucose units (mg/dL) and estimates average glucose over the past approximately 3 months. The eAG reference interval (<117 mg/dL) corresponds to an A1c of <5.7%. Blood Venipuncture / Unknown 03/16/2024 12:50 PM CDT 03/16/2024 12:51 PM CDT Narrative [facility] - 03/17/2024 8:33 AM CDT For patients not previously diagnosed with diabetes: 5.7-6.4%: Increased risk for diabetes 6.5% and greater: Diagnostic for diabetes For patients diagnosed with diabetes: <8.0%: Goal of therapy for ages 18-75 Clinicians may recommend a higher or lower goal for specific individuals. us Sarah Carter MD LAB_1 Fin al Result Performing Organization Address City/[facility]/ZIP Co de Phone Number [facility] [address] [place] [address], [facility] from Last 3 Months or Most Recently Relevant to Health Maintenance Insurance [id number] [place] [address] UHC MEDICARE ADVANTAGE [phone] [place] [address] [employer]HC MEDICARE ADVANTAGE [place] [id number] FLORESITA SINGH Advance Directives * Full Code (Latest Code Status on File) Date Activated Date Inactivated Comments 02/19/2021 7:44 PM 02/20/2021 5:29 PM Question Answer Comments On Admission, Code status wa s determined by: Not discussed with patient/familyPer review of POLST Care Teams Switch House Operator Relationship Specialty Start Date End Date Sarah Mathews MD [address] [place] [address] PCP - General Family Practice 01/25/23
--- OUTSIDE RECORDS SUMMARY | 2025-05-09 13:56 | XMS_ITS | Encounter Summary ---
Author Organization [facility] Address [address] [place] [address] Care Team Providers Care Can Line Operator Name Role Phone Sarah Mathews MD Primary Care Provi franko Encounter Details Date Type Department Care Team (Late st Contact Info) Description 04/02/2025 [facility] [address] [place], [place] [address] Ankita Gaviria APRN, DOCKING PILOT [address] [place], [place] [address] Other specified mononeuropathies of bilateral lower limbs Social History Tobacco Use Types Packs/Day Years [...] st Contact Info) Description 04/24/2025 [facility] [address] [place], [place] [address] Ankita Gaviria APRN, DOCKING PILOT [address] [place], [place] [phone] Acute and subacute infective endocarditis 05/08/2025 [facility] [address] [place] [address] Ankita Gaviria APRN, [address] [phone] Acute and subacute infective endocarditis 05/08/2025 [facility] [address] [place] [address] Ankita Gaviria APRN, [address] [phone] Acute and subacute infective endocarditis 05/09/2025 [facility] [address] [place] [address] Ankita Gaviria APRN, [address] 209284 [phone] Metabolic encephalopathy documented as of this encounter Procedures Procedure Name Priority Date/Time Associated Diagnosis Comments CBC AND DIFFERENTIAL PANEL Routine 04/05/2025 2:40 PM CDT Other specified mononeuropathies of bilateral lower limbs COMPLETE BLOOD COUNT-W/DIFF Routine 04/05/2025 2:40 PM CDT Other specified mononeuropathies of bilateral lower limbs documented in this encounter Results * (ABNORMAL) Complete Blood Count-W/Diff (04/05/2025 2:40 PM CDT) [facility] WBC 6.3 3.5 - 10.5 x10(9)/L 04/05/2025 4:56 PM CDT [facility] RBC 4.38 4.32 - 5.72 x10(12)/L 04/05/2025 4:56 PM CDT [facility] Hemoglobin 13.6 13.5 - 17.5 g/dL 04/05/2025 4:56 PM CDT [facility] HCT 38.9 38.8 - 50.0 % 04/05/2025 4:56 PM CDT [facility] MCV 88.8 80.0 - 100.0 fL 04/05/2025 4:56 PM CDT [facility] MCH 31.1 27.6 - 33.3 pg 04/05/2025 4:56 PM CDT [facility] MCHC 35.0 31.5 - 35.2 g/dL 04/05/2025 4:56 PM CDT [facility] RDW 13.0 11.9 - 15.5 % 04/05/2025 4:56 PM CDT [facility] Platelets 145(L) 150 - 450 x10(9)/L 04/05/2025 4:56 PM CDT [facility] Automated NRBC 0 <=0 /100 WBC 04/05/2025 4:56 PM CDT [facility] Neutrophil Absolute 3.9 1.7 - 7.0 10(9)/L 04/05/2025 4:56 PM CDT [facility] Lymphocyte Absolute 1.4 1.0 - 4.8 10(9)/L 04/05/2025 4:56 PM CDT [facility] Monocyte Absolute 0.8 0.2 - 0.9 10(9)/L 04/05/2025 4:56 PM CDT [facility] Eosinophil Absolute 0.2 0.0 - 0.5 10(9)/L 04/05/2025 4:56 PM CDT [facility] Basophil Absolute 0.0 0.0 - 0.3 10(9)/L 04/05/2025 4:56 PM CDT [facility] Immature Granulocyte % 0.2 0.0 - 0.5 % 04/05/2025 4:56 PM CDT [facility] Blood Venipuncture / Unknown 04/05/2025 2:40 PM CDT 04/05/2025 4:46 PM CDT us Ankita Gaviria OCCUPATIONAL THERAPY INSTRUCTOR, DOCKING PILOT [facility] Result [facility] [address] [place], [place] [address] documented in this encounter Visit Diagnoses Diagnosis Other specified mononeuropathies of bilateral lower limbs Acute and subacute infective endocarditis Acute and subacute infective endocarditis in diseases classified elsewhere Acute and subacute infective endocarditis Acute and subacute infective endocarditis in diseases classified elsewhere Acute and subacute infective endocarditis Acute and subacute infective endocarditis in diseases classified elsewhere Metabolic encephalopathy documented in this encounter Care Teams Can Line Operator Relationship Specialty Start Date End Date Sarah Mathews MD [address] [place] [address] PCP - General Family Practice 01/25/23 documented as of this encounter
--- OUTSIDE RECORDS SUMMARY | 2025-05-09 13:56 | XMS_ITS | Encounter Summary ---
Author Organization [facility] Address [address] [place] [address] Care Team Providers Care Crayon Sawyer Name Role Phone Sarah Mathews MD Primary Care Provi franko Encounter Details Date Type Department Care Team (Late st Contact Info) Description 01/16/2025 Lab Requisition [facility] [address] [place], [place] [address] Ankita Gaviria APRN, IMPOSER [facility] [place], [place] [phone] Acute and subacute endocarditis, unspecified Social History Tobacco Use Types Packs/Day [...] st Contact Info) Description 04/24/2025 Lab Re[facility] [address] [place] [address] Ankita Gaviria APRN, IMPOSER [address] [place], [place] [phone] Acute and subacute infective endocarditis 05/08/2025 Lab Re[facility] [address] [place] [address] Ankita Gaviria, BOOTH CLEANER, IMPOSER [address] [place] [address] [phone] Acute and subacute infective endocarditis 05/08/2025 Lab Re[facility] [address] [place] [address] Ankita Gaviria, BOOTH CLEANER, [address] [phone] Acute and subacute infective endocarditis 05/09/2025 Lab [facility] [address] [place] [address] Ankita Gaviria BOOTH CLEANER, [address] 384212 [phone] Metabolic encephalopathy documented as of this encounter Procedures Procedure Name Priority Date/Time Associated Diagnosis Comments CBC AND DIFFERENTIAL PANEL Routine 02/05/2025 9:30 AM CDT Acute and subacute endocarditis, unspecified CREATININE / GFR Routine 02/05/2025 9:30 AM CDT Acute and subacute endocarditis, unspecified COMPLETE BLOOD COUNT-W/DIFF Routine 02/05/2025 9:30 AM CDT Acute and subacute endocarditis, unspecified C-REACTIVE PROTEIN Routine 02/05/2025 9: 30 AM CDT Acute and subacute endocarditis, unspecified AST Routine 02/05/2025 9:30 AM CDT Acute and subacute endocarditis, unspecified documented in this encounter Results * (ABNORMAL) Complete Blood Count-W/Diff (02/05/2025 9:30 AM CDT) [facility] WBC 4.6 3.5 - 10.5 x10(9)/L 02/05/2025 1: PM CDT [facility] RBC 4.13(L) 4.32 - 5.72 x10(12)/L 02/05/2025 1: PM CDT [facility] Hemoglobin 12.6(L) 13.5 - 17.5 g/dL 02/05/2025 1: PM CDT [facility] HCT 37.2(L) 38.8 - 50.0 % 02/05/2025 1: PM CDT [facility] MCV 90.1 80.0 - 100.0 fL 02/05/2025 1: PM CDT [facility] MCH 30.5 27.6 - 33.3 pg 02/05/2025 1: PM CDT [facility] MCHC 33.9 31.5 - 35.2 g/dL 02/05/2025 1: PM CDT [facility] RDW 12.7 11.9 - 15.5 % 02/05/2025 1: PM CDT [facility] Platelets 152 150 - 450 x10(9)/L 02/05/2025 1: PM CDT [facility] Automated NRBC 0 <=0 /100 WBC 02/05/2025 1: PM CDT [facility] Neutrophil Absolute 2.8 1.7 - 7.0 10(9)/L 02/05/2025 1: PM CDT [facility] Lymphocyte Absolute 1.2 1.0 - 4.8 10(9)/L 02/05/2025 1: PM CDT [facility] Monocyte Absolute 0.5 0.2 - 0.9 10(9)/L 02/05/2025 1: PM CDT [facility] Eosinophil Absolute 0.1 0.0 - 0.5 10(9)/L 02/05/2025 1: PM CDT [facility] Basophil Absolute 0.0 0.0 - 0.3 10(9)/L 02/05/2025 1: PM CDT [facility] Immature Granulocyte % 0.4 0.0 - 0.5 % 02/05/2025 1:26 PM CDT [facility] Blood Venipuncture / Unknown 02/05/2025 9:30 AM CDT 02/05/2025 1:19 PM CDT us Ankita Gaviria BOOTH CLEANER, IMPOSER LAB_1 Tabatha l Result Performing Organization Address [facility] de Phone Number [facility] [address] [place] [address] * C-Reactive Protein (02/05/2025 9:30 AM CDT) C-Reactive Protein <0.5 0.0 - 0.5 mg/dL 02/05/2025 1:35 PM CDT [facility] Blood Venipuncture / Unknown 02/05/2025 9:30 AM CDT 02/05/2025 1:18 PM CDT us Ankita Gaviria BOOTH CLEANER, IMPOSER [facility]_1 Tab[facility] l Result Performing Organization Address [facility] Phone Number [facility] [address] [place] [address] * Creatinine / GFR (02/05/2025 9:30 AM CDT) Creatinine 1.16 0.73 - 1.18 mg/dL 02/05/2025 1:35 PM CDT [facility] GFR, Estimated >60 >60 mL/min/1.7 3m2 02/05/2025 1:35 PM CDT [facility] Blood Venipuncture / Unknown 02/05/2025 9:30 AM CDT 02/05/2025 1:18 PM CDT us Ankita Claytonr BOOTH CLEANER, IMPOSER LAB_1 Tab[facility] l Result Performing Organization Address [facility] Co de Phone Number [facility] [address] * AST (02/05/2025 9:30 AM CDT) AST (SGOT) 34 10 - 40 U/L 02/05/2025 1:35 PM CDT [facility] Blood Venipuncture / Unknown 02/05/2025 9:30 AM CDT 02/05/2025 1:18 PM CDT us Ankita Jha Bebler BOOTH CLEANER, IMPOSER LAB_1 Tab[facility] Result [facility] [address] [place], [place] [address] documented in this encounter Visit Diagnoses Diagnosis Acute and subacute endocarditis, unspecified Acute and subacute infective endocarditis Acute and subacute infective endocarditis in diseases classified elsewhere Acute and subacute infective endocarditis Acute and subacute infective endocarditis in diseases classified elsewhere Acute and subacute infective endocarditis Acute and subacute infective endocarditis in diseases classified elsewhere Metabolic encephalopathy documented in this encounter Care Teams Crayon Sawyer Relationship Specialty Start Date End Date Sarah Mathews MD [facility], [facility] [place] [phone] PCP - General Family Practice 01/25/23 documented as of this encounter
--- OUTSIDE RECORDS SUMMARY | 2025-05-09 13:56 | XMS_ITS | Encounter Summary ---
Author Organization [facility] Address [address] [place] [address] Care Team Providers Care Director Of Food And Nutrition Services Name Role Phone Sarah Mathews MD Primary Care Provi franko Encounter Details Date Type Department Care Team (Late st Contact Info) Description 03/27/2025 Lab Requisition [facility] [address] [place], [place] [address] Ankita Gaviria APRN, [place] [phone] [place], [place] [phone] Acute and subacute infective endocarditis Social History [...] st Contact Info) Description 04/24/2025 Lab Re[facility] [address] [place] [address] Ankita Gaviria APRN, LOAD OUT WORKER [address] [place], [place] [phone] Acute and subacute infective endocarditis 05/08/2025 Lab Re[facility] [address] [place] [address] Ankita Gaviria APRN, [address] [phone] Acute and subacute infective endocarditis 05/08/2025 Lab Re[facility] [address] [place] [address] Ankita Gaviria GALLERY OR MUSEUM CURATOR, [address] [phone] Acute and subacute infective endocarditis 05/09/2025 Lab [facility] [address] [employer] [place], [place] [address] [phone] Ankita Gaviria APRN, [address] [phone] Metabolic encephalopathy documented as of this encounter Procedures Procedure Name Priority Date/Time Associated Diagnosis Comments CBC AND DIFFERENTIAL PANEL Routine 04/16/2025 8:43 [...] encounter Results * (ABNORMAL) Complete Blood Count-W/Diff (04/16/2025 8:43 AM CDT) WBC 7.0 3.5 - 10.5 x10(9)/L 04/16/2025 12:25 PM CDT [facility] RBC 4.07(L) 4.32 - 5.72 x10(12)/L 04/16/2025 12:25 PM CDT [facility] Hemoglobin 13.8 13.5 - 17.5 g/dL 04/16/2025 12:25 PM CDT [facility] HCT 37.6(L) 38.8 - 50.0 % 04/16/2025 12:25 PM CDT [facility] MCV 92.4 80.0 - 100.0 fL 04/16/2025 12:25 PM CDT [facility] MCH 33.9(H) 27.6 - 33.3 pg 04/16/2025 12:25 PM CDT [facility] MCHC 36.7(H) 31.5 - 35.2 g/dL 04/16/2025 12:25 PM CDT [facility] RDW 13.5 11.9 - 15.5 % 04/16/2025 12:25 PM CDT [facility] Platelets 158 150 - 450 x10(9)/L 04/16/2025 12:25 PM CDT [facility] Automated NRBC 0 <=0 /100 WBC 04/16/2025 12:25 PM CDT [facility] Neutrophil Absolute 4.9 1.7 - 7.0 10(9)/L 04/16/2025 12:25 PM CDT [facility] Lymphocyte Absolute 1.2 1.0 - 4.8 10(9)/L 04/16/2025 12:25 PM CDT [facility] Monocyte Absolute 0.7 0.2 - 0.9 10(9)/L 04/16/2025 12:25 PM CDT [facility] Eosinophil Absolute 0.2 0.0 - 0.5 10(9)/L 04/16/2025 12:25 PM CDT [facility] Basophil Absolute 0.0 0.0 - 0.3 10(9)/L 04/16/2025 12:25 PM CDT [facility] Immature Granulocyte % 0.3 0.0 - 0.5 % 04/16/2025 12:25 PM CDT [facility] Blood Venipuncture / Unknown 04/16/2025 8:43 AM CDT 04/16/2025 10:46 AM CDT us Ankita Gaviria APRN, LOAD OUT WORKER LAB_1 Tabatha l Result Performing Organization Address [facility] Phone Number [facility] [address] [place] [address] * C-Reactive Protein (04/16/2025 8:43 AM CDT) C-Reactive Protein <0.5 0.0 - 0.5 mg/dL 04/16/2025 11:38 AM CDT [facility] Blood Venipuncture / Unknown 04/16/2025 8:43 AM CDT 04/16/2025 10:46 AM CDT us Ankita Gaviria GALLERY OR MUSEUM CURATOR, LOAD OUT WORKER LAB_1 Tabatha l Result Performing Organization Address [facility] Phone Number [facility] [address] [place] [address] * (ABNORMAL) Creatinine / GFR (04/16/2025 8:43 AM CDT) Creatinine 1.27(H) 0.73 - 1.18 mg/dL 04/16/2025 11:38 AM CDT [facility] GFR, Estimated 55(L) >60 mL/min/1.7 3m2 04/16/2025 11:38 AM CDT [facility] Blood Venipuncture / Unknown 04/16/2025 8:43 AM CDT 04/16/2025 10:46 AM CDT Narrative [facility] - 04/16/2025 11:38 AM CDT The National Kidney Disease Education Program suggests measuring Cystatin C in patients with eGFRcrea of 45 to 59 ml/min/1.73^2 who do not have other markers of kidney damage (i.e. elevated urine Albumin/Creatinine Ratio or a prior Cystatin C confirming the presence of chronic kidney disease). us Ankita Claytonr GALLERY OR MUSEUM CURATOR, LOAD OUT WORKER LAB_1 Tab[facility] Result Performing Organization Address City/[facility]/ZIP Co de Phone Number [facility] [address] * AST (04/16/2025 8:43 AM CDT) AST (SGOT) 29 16 - 46 U/L 04/16/2025 11:38 AM CDT [facility] Blood Venipuncture / Unknown 04/16/2025 8:43 AM CDT 04/16/2025 10:46 AM CDT Ankita Claytonr GALLERY OR MUSEUM CURATOR, LOAD OUT WORKER LAB_1 Tabatha l Result Performing Organization Address [facility] Co de Phone Number [facility] [address] documented in this encounter Visit Diagnoses [...] encephalopathy documented in this encounter Care Teams Director Of Food And Nutrition Services Relationship Specialty Start Date End Date Sarah Mathews MD [address] [place] [address] PCP - General Family Practice 01/25/23 documented as of this encounter
--- OUTSIDE RECORDS SUMMARY | 2025-05-09 13:56 | XMS_ITS | Encounter Summary ---
Author Organization [facility] Address [address] [place] [address] Care Team Providers Care Coiled Coil Inspector Name Role Phone Sarah Mathews MD Primary Care Provi franko Encounter Details Date Type Department Care Team (Late st Contact Info) Description 02/20/2025 Lab Requisition [facility] [address] [place], [place] [address] Ankita Gaviria APRN, [place] [phone] [place], [place] [phone] Acute and subacute infective endocarditis Social History [...] st Contact Info) Description 04/24/2025 Lab Re[facility] [address] [place], [place] [address] Ankita Gaviria APRN, PIPE INSULATOR [address] [place], [place] [phone] Acute and subacute infective endocarditis 05/08/2025 Lab Requisition [facility] [address] [place] [address] Ankita Gaviria APRN, [address] [address] [phone] Acute and subacute infective endocarditis 05/08/2025 Lab [facility] [address] [place] [address] Ankita Gaviria APRN, [address] [phone] Acute and subacute infective endocarditis 05/09/2025 Lab Re[facility] [address] [place], [place] [address] [phone] Ankita Gaviria APRN, [address] [phone] Metabolic encephalopathy documented as of this encounter Procedures Procedure Name Priority Date/Time Associated Diagnosis Comments CBC AND DIFFERENTIAL PANEL Routine 03/12/2025 9:30 [...] encounter Results * (ABNORMAL) Complete Blood Count-W/Diff (03/12/2025 9:30 AM CDT) WBC 6.0 3.5 - 10.5 x10(9)/L 03/12/2025 2:58 PM CDT [facility] RBC 4.31(L) 4.32 - 5.72 x10(12)/L 03/12/2025 2:58 PM CDT [facility] Hemoglobin 13.3(L) 13.5 - 17.5 g/dL 03/12/2025 2:58 PM CDT [facility] HCT 39.6 38.8 - 50.0 % 03/12/2025 2:58 PM CDT [facility] MCV 91.9 80.0 - 100.0 fL 03/12/2025 2:58 PM CDT [facility] MCH 30.9 27.6 - 33.3 pg 03/12/2025 2:58 PM CDT [facility] MCHC 33.6 31.5 - 35.2 g/dL 03/12/2025 2:58 PM CDT [facility] RDW 13.0 11.9 - 15.5 % 03/12/2025 2:58 PM CDT [facility] Platelets 134(L) 150 - 450 x10(9)/L 03/12/2025 2:58 PM CDT [facility] Automated NRBC 0 <=0 /100 WBC 03/12/2025 2:58 PM CDT [facility] Neutrophil Absolute 3.8 1.7 - 7.0 10(9)/L 03/12/2025 2:58 PM CDT [facility] Lymphocyte Absolute 1.4 1.0 - 4.8 10(9)/L 03/12/2025 2:58 PM CDT [facility] Monocyte Absolute 0.6 0.2 - 0.9 10(9)/L 03/12/2025 2:58 PM CDT [facility] Eosinophil Absolute 0.2 0.0 - 0.5 10(9)/L 03/12/2025 2:58 PM CDT [facility] Basophil Absolute 0.0 0.0 - 0.3 10(9)/L 03/12/2025 2:58 PM CDT [facility] Immature Granulocyte % 0.3 0.0 - 0.5 % 03/12/2025 2:58 PM CDT [facility] Blood VENOUS BLOOD SPECIMEN / Unknown Venipuncture / Unknown 03/12/2025 9:30 AM CDT 03/12/2025 2:47 PM CDT us Ankita Gaviria APRN, PIPE INSULATOR LAB_1 Tab[facility] Result Performing Organization Address [facility] de Phone Number [facility] [address] [place] [address] * C-Reactive Protein (03/12/2025 9:30 AM CDT) C-Reactive Protein <0.5 0.0 - 0.5 mg/dL 03/12/2025 3:14 PM CDT [facility] Blood VENOUS BLOOD SPECIMEN / Unknown Venipuncture / Unknown 03/12/2025 9:30 AM CDT 03/12/2025 2:47 PM CDT us Ankita Gaviria GAMBLING FLOOR SUPERVISOR, PIPE INSULATOR LAB_1 Tab[facility] Result Performing Organization Address [facility] Phone Number [facility] [address] [place] [address] * (ABNORMAL) Creatinine / GFR (03/12/2025 9:30 AM CDT) Creatinine 1.40(H) 0.73 - 1.18 mg/dL 03/12/2025 3:14 PM CDT [facility] GFR, Estimated 49(L) >60 mL/min/1.7 3m2 03/12/2025 3:14 PM CDT [facility] Blood VENOUS BLOOD SPECIMEN / Unknown Venipuncture / Unknown 03/12/2025 9:30 AM CDT 03/12/2025 2:47 PM CDT Narrative [facility] - 03/12/2025 3:14 PM CDT The National Kidney Disease Education Program suggests measuring Cystatin C in patients with eGFRcrea of 45 to 59 ml/min/1.73^2 who do not have other markers of kidney damage (i.e. elevated urine Albumin/Creatinine Ratio or a prior Cystatin C confirming the presence of chronic kidney disease). Ankita Claytonr GAMBLING FLOOR SUPERVISOR, PIPE INSULATOR LAB_1 [facility] Result Performing Organization Address City/[facility]/ZIP Co de Phone Number [facility] [address] * AST (03/12/2025 9:30 AM CDT) AST (SGOT) 32 10 - 40 U/L 03/12/2025 3:14 PM CDT [facility] Blood VENOUS BLOOD SPECIMEN / Unknown Venipuncture / Unknown 03/12/2025 9:30 AM CDT 03/12/2025 2:47 PM CDT Ankita Claytonr GAMBLING FLOOR SUPERVISOR, PIPE INSULATOR LAB_1 [facility] Result Performing Organization Address [facility] de Phone Number [facility] [address] documented in this encounter Visit Diagnoses [...] encephalopathy documented in this encounter Care Teams Coiled Coil Inspector Relationship Specialty Start Date End Date Sarah Mathews MD [address] [place] [address] PCP - General Family Practice 01/25/23 documented as of this encounter
--- OUTSIDE RECORDS SUMMARY | 2025-05-09 13:56 | XMS_ITS | Encounter Summary ---
Author Organization [facility] Address [address] [place] [address] Care Team Providers Care Stump Shooter Name Role Phone Sarah Mathews MD Primary Care Provi franko Encounter Details Date Type Department Care Team (Late st Contact Info) Description 02/13/2025 Lab Requisition [facility] [address] [place], [place] [address] Ankita Gaviria APRN, [place] [id number] [place], [place] [phone] Acute and subacute infective endocarditis Social History [...] st Contact Info) Description 04/24/2025 Lab Requisition [facility] [address] [place], [place] [address] Ankita Gaviria APRN, JOB DEVELOPER [address] [place], [place] [phone] Acute and subacute infective endocarditis 05/08/2025 Lab Requisition [facility] [address] [place] [address] Ankita Gaviria APRN, [address] [phone] Acute and subacute infective endocarditis 05/08/2025 Lab Requisition [facility] [address] [place] [address] Ankita Gaviria WINDOWS SYSTEM ADMIN, [address] [phone] Acute and subacute infective endocarditis 05/09/2025 Lab Requisition [facility] [address] [place], [place] [address] [phone] Ankita Gaviria APRN, [address] [phone] Metabolic encephalopathy documented as of this encounter Procedures Procedure Name Priority Date/Time Associated Diagnosis Comments CBC AND DIFFERENTIAL PANEL Routine 02/26/2025 1:05 [...] encounter Results * (ABNORMAL) Complete Blood Count-W/Diff (02/26/2025 1:05 PM CDT) WBC 5.4 3.5 - 10.5 x10(9)/L 02/26/2025 7: PM CDT [facility] RBC 4.36 4.32 - 5.72 x10(12)/L 02/26/2025 7:22 PM CDT [facility] Hemoglobin 13.5 13.5 - 17.5 g/dL 02/26/2025 7: PM CDT [facility] HCT 40.6 38.8 - 50.0 % 02/26/2025 7: PM CDT [facility] MCV 93.1 80.0 - 100.0 fL 02/26/2025 7: PM CDT [facility] MCH 31.0 27.6 - 33.3 pg 02/26/2025 7: PM CDT [facility] MCHC 33.3 31.5 - 35.2 g/dL 02/26/2025 7: PM CDT [facility] RDW 13.2 11.9 - 15.5 % 02/26/2025 7:22 PM CDT [facility] Platelets 144(L) 150 - 450 x10(9)/L 02/26/2025 7: PM CDT [facility] Automated NRBC 0 <=0 /100 WBC 02/26/2025 7: PM CDT [facility] Neutrophil Absolute 3.3 1.7 - 7.0 10(9)/L 02/26/2025 7:22 PM CDT [facility] Lymphocyte Absolute 1.2 1.0 - 4.8 10(9)/L 02/26/2025 7:22 PM CDT [facility] Monocyte Absolute 0.6 0.2 - 0.9 10(9)/L 02/26/2025 7:22 PM CDT [facility] Eosinophil Absolute 0.2 0.0 - 0.5 10(9)/L 02/26/2025 7:22 PM CDT [facility] Basophil Absolute 0.0 0.0 - 0.3 10(9)/L 02/26/2025 7:22 PM CDT [facility] Immature Granulocyte % 0.2 0.0 - 0.5 % 02/26/2025 7:22 PM CDT [facility] Blood Venipuncture / Unknown 02/26/2025 1:05 PM CDT 02/26/2025 7:14 PM CDT Ankita Yudelka Khadra GENAO, JOB DEVELOPER LAB_1 Tabatha l Result Performing Organization Address [facility] de Phone Number [facility] [address] [place] [address] * C-Reactive Protein (02/26/2025 1:05 PM CDT) C-Reactive Protein <0.5 0.0 - 0.5 mg/dL 02/26/2025 7:55 PM CDT [facility] Blood Venipuncture / Unknown 02/26/2025 1:05 PM CDT 02/26/2025 7:12 PM CDT Ankitakit Gaviria APRN, JOB DEVELOPER LAB_1 Tabatha l Result Performing Organization Address [facility] Phone Number [facility] [address] [place] [address] * (ABNORMAL) Creatinine / GFR (02/26/2025 1:05 PM CDT) Creatinine 1.40(H) 0.73 - 1.18 mg/dL 02/26/2025 7:55 PM CDT [facility] GFR, Estimated 49(L) >60 mL/min/1.7 3m2 02/26/2025 7:55 PM CDT [facility] Blood Venipuncture / Unknown 02/26/2025 1:05 PM CDT 02/26/2025 7:12 PM CDT Narrative [facility] - 02/26/2025 7:55 PM CDT The National Kidney Disease Education Program suggests measuring Cystatin C in patients with eGFRcrea of 45 to 59 ml/min/1.73^2 who do not have other markers of kidney damage (i.e. elevated urine Albumin/Creatinine Ratio or a prior Cystatin C confirming the presence of chronic kidney disease). Ankita A Bebler WINDOWS SYSTEM ADMIN, JOB DEVELOPER LAB_1 Tabatha l Result Performing Organization Address [facility] Co de Phone Number [facility] [address] * AST (02/26/2025 1:05 PM CDT) AST (SGOT) 34 10 - 40 U/L 02/26/2025 7:55 PM CDT [facility] Blood Venipuncture / Unknown 02/26/2025 1:05 PM CDT 02/26/2025 7:12 PM CDT us Ankita Smallshelenehalina WINDOWS SYSTEM ADMIN, JOB DEVELOPER LAB_1 Tabatha l Result Performing Organization Address [facility] de Phone Number [facility] [address] documented in this encounter Visit Diagnoses [...] encephalopathy documented in this encounter Care Teams Stump Shooter Relationship Specialty Start Date End Date Sarah Mathews MD [address] [place] [address] PCP - General Family Practice 01/25/23 documented as of this encounter
--- OUTSIDE RECORDS SUMMARY | 2025-05-09 13:56 | XMS_ITS | Encounter Summary ---
Author Organization [facility] Address [address] [place] [address] Care Team Providers Care Firer Low Pressure Name Role Phone Sarah Mathews MD Primary Care Provi franko Encounter Details Date Type Department Care Team (Late st Contact Info) Description 01/30/2025 Lab Requisition [facility] [address] [place] [address] Ankita Gaviria APRN, DATA PROCESSOR [facility] [place], [place] [phone] Acute and subacute endocarditis, unspecified Social History [...] st Contact Info) Description 04/24/2025 Lab Requisition [facility] [address] [place] [address] Ankita Gaviria APRN, DATA PROCESSOR [address] [place], [place] [phone] Acute and subacute infective endocarditis 05/08/2025 Lab Requisition [facility] [address] [place] [address] Ankita Gaviria, LETTER CARRIER, DATA PROCESSOR [address] [place] [phone] Acute and subacute infective endocarditis 05/08/2025 Lab Requisition [facility] [address] [place] [address] Ankita Gaviria LETTER CARRIER, [address] [phone] Acute and subacute infective endocarditis 05/09/2025 Lab Requisition [facility] [address] [place] [address] Ankita Gaviria LETTER CARRIER, [address] [phone] Metabolic encephalopathy documented as of this encounter Procedures Procedure Name Priority Date/Time Associated Diagnosis Comments CBC AND DIFFERENTIAL PANEL Routine 02/12/2025 8:10 AM CDT Acute and subacute endocarditis, unspecified CREATININE / GFR Routine 02/12/2025 8:10 AM CDT Acute and subacute endocarditis, unspecified COMPLETE BLOOD COUNT-W/DIFF Routine 02/12/2025 8:10 AM CDT Acute and subacute endocarditis, unspecified C-REACTIVE PROTEIN Routine 02/12/2025 8: 10 AM CDT Acute and subacute endocarditis, unspecified AST Routine 02/12/2025 8:10 AM CDT Acute and subacute endocarditis, unspecified documented in this encounter Results * (ABNORMAL) Complete Blood Count-W/Diff (02/12/2025 8:10 AM CDT) [facility] WBC 7.9 3.5 - 10.5 x10(9)/L 02/12/2025 1:57 PM CDT [facility] RBC 4.70 4.32 - 5.72 x10(12)/L 02/12/2025 1:57 PM CDT [facility] Hemoglobin 14.3 13.5 - 17.5 g/dL 02/12/2025 1:57 PM CDT [facility] HCT 42.8 38.8 - 50.0 % 02/12/2025 1:57 PM CDT [facility] MCV 91.1 80.0 - 100.0 fL 02/12/2025 1:57 PM CDT [facility] MCH 30.4 27.6 - 33.3 pg 02/12/2025 1:57 PM CDT [facility] MCHC 33.4 31.5 - 35.2 g/dL 02/12/2025 1:57 PM CDT [facility] RDW 12.8 11.9 - 15.5 % 02/12/2025 1:57 PM CDT [facility] Platelets 147(L) 150 - 450 x10(9)/L 02/12/2025 1:57 PM CDT [facility] Automated NRBC 0 <=0 /100 WBC 02/12/2025 1:57 PM CDT [facility] Neutrophil Absolute 4.3 1.7 - 7.0 10(9)/L 02/12/2025 1:57 PM CDT [facility] Lymphocyte Absolute 2.5 1.0 - 4.8 10(9)/L 02/12/2025 1:57 PM CDT [facility] Monocyte Absolute 0.8 0.2 - 0.9 10(9)/L 02/12/2025 1:57 PM CDT [facility] Eosinophil Absolute 0.3 0.0 - 0.5 10(9)/L 02/12/2025 1:57 PM CDT [facility] Basophil Absolute 0.0 0.0 - 0.3 10(9)/L 02/12/2025 1:57 PM CDT [facility] Immature Granulocyte % 0.4 0.0 - 0.5 % 02/12/2025 1:57 PM CDT [facility] Blood Venipuncture / Unknown 02/12/2025 8:10 AM CDT 02/12/2025 1:41 PM CDT Result [facility] Ankita Gaviria APRN, DATA PROCESSOR LAB_1 Tabatha l Result Performing Organization Address [facility] Phone Number [facility] [address] [place] [address] * C-Reactive Protein (02/12/2025 8:10 AM CDT) C-Reactive Protein <0.5 0.0 - 0.5 mg/dL 02/12/2025 1:57 PM CDT [facility] Blood Venipuncture / Unknown 02/12/2025 8:10 AM CDT 02/12/2025 1:39 PM CDT Ankita Gaviria APRN, DATA PROCESSOR LAB_1 Tabatha l Result Performing Organization Address [facility] Phone Number [facility] [address] [place] [address] * (ABNORMAL) Creatinine / GFR (02/12/2025 8:10 AM CDT) Creatinine 1.20(H) 0.73 - 1.18 mg/dL 02/12/2025 1:57 PM CDT [facility] GFR, Estimated 59(L) >60 mL/min/1.7 3m2 02/12/2025 1:57 PM CDT [facility] Blood Venipuncture / Unknown 02/12/2025 8:10 AM CDT 02/12/2025 1:39 PM CDT Narrative [facility] - 02/12/2025 1:57 PM CDT The National Kidney Disease Education Program suggests measuring Cystatin C in patients with eGFRcrea of 45 to 59 ml/min/1.73^2 who do not have other markers of kidney damage (i.e. elevated urine Albumin/Creatinine Ratio or a prior Cystatin C confirming the presence of chronic kidney disease). Ankita Claytonr LETTER CARRIER, DATA PROCESSOR LAB_1 Tabatha l Result Performing Organization Address City/[facility]/ZIP Co de Phone Number [facility] [address] * AST (02/12/2025 8:10 AM CDT) AST (SGOT) 36 10 - 40 U/L 02/12/2025 1:57 PM CDT [facility] Blood Venipuncture / Unknown 02/12/2025 8:10 AM CDT 02/12/2025 1:39 PM CDT Ankita Gaviria APRN, DATA PROCESSOR LAB_1 Tabatha l Result Performing Organization Address [facility] Co de Phone Number [facility] [address] documented in this encounter Visit Diagnoses Diagnosis Acute and subacute endocarditis, unspecified Acute and subacute infective endocarditis Acute and subacute infective endocarditis in diseases classified elsewhere Acute and subacute infective endocarditis Acute and subacute infective endocarditis in diseases classified elsewhere Acute and subacute infective endocarditis Acute and subacute infective endocarditis in diseases classified elsewhere Metabolic encephalopathy documented in this encounter Care Teams Firer Low Pressure Relationship Specialty Start Date End Date Sarah Mathews MD [address] [place] [address] PCP - General Family Practice 01/25/23 documented as of this encounter
--- OUTSIDE RECORDS SUMMARY | 2025-05-09 13:56 | XMS_ITS | Encounter Summary ---
Author Organization [facility] Address [address] [place] [address] Care Team Providers Care Bass Singer Name Role Phone Sarah Mathews MD Primary Care Provi franko Encounter Details Date Type Department Care Team (Late st Contact Info) Description 11/14/2024 Lab Requisition [facility] [address] [place], [place] [address] Ankita Gaviria APRN, [place] [phone] [place], [place] [phone] Acute and subacute infective endocarditis Social History [...] Description 04/24/2025 Lab Requisition [facility] [address] [place] [address] Ankita Gaviria APRN, JOURNEYMAN MILLWRIGHT [address] [place], [place] [phone] Acute and subacute infective endocarditis 05/08/2025 Lab Requisition [facility] [address] [place], [place] [address] [phone] Ankita Gaviria APRN, [address] [phone] Acute and subacute infective endocarditis 05/08/2025 Lab Requisition [facility] [address] [place], [place] [address] [phone] Ankita Gaviria APRN, [address] [phone] Acute and subacute infective endocarditis 05/09/2025 Lab Requisition [facility] [address] [place], [place] [address] [phone] Ankita Gaviria APRN, [address] [phone] Metabolic encephalopathy documented as of this encounter Procedures Procedure Name Priority Date/Time Associated Diagnosis Comments CBC AND DIFFERENTIAL PANEL Routine 11/20/2024 10:30 AM DOOR INSTALLER Acute and subacute infective endocarditis CREATININE / GFR Routine 11/20/2024 10:3 0 AM DOOR INSTALLER Acute and subacute infective endocarditis COMPLETE BLOOD COUNT-W/DIFF Routine 11/20/2024 10:30 AM DOOR INSTALLER Acute and subacute infective endocarditis C-REACTIVE PROTEIN Routine 11/20/2024 10 :30 AM DOOR INSTALLER Acute and subacute infective endocarditis AST Routine 11/20/2024 10:30 AM DOOR INSTALLER Acute and subacute infective endocarditis documented in this encounter Results * (ABNORMAL) Complete Blood Count-W/Diff (11/20/2024 10:30 AM DOOR INSTALLER) [facility] WBC 7.5 3.5 - 10.5 x10(9)/L 11/20/2024 4:10 PM DOOR INSTALLER [facility] RBC 3.83(L) 4.32 - 5.72 x10(12)/L 11/20/2024 4:10 PM DOOR INSTALLER [facility] Hemoglobin 11.9(L) 13.5 - 17.5 g/dL 11/20/2024 4:10 PM DOOR INSTALLER [facility] HCT 35.2(L) 38.8 - 50.0 % 11/20/2024 4:10 PM DOOR INSTALLER [facility] MCV 91.9 80.0 - 100.0 fL 11/20/2024 4:10 PM DOOR INSTALLER [facility] MCH 31.1 27.6 - 33.3 pg 11/20/2024 4:10 PM DOOR INSTALLER [facility] MCHC 33.8 31.5 - 35.2 g/dL 11/20/2024 4:10 PM DOOR INSTALLER [facility] RDW 12.3 11.9 - 15.5 % 11/20/2024 4:10 PM DOOR INSTALLER [facility] Platelets 186 150 - 450 x10(9)/L 11/20/2024 4:10 PM DOOR INSTALLER [facility] Automated NRBC 0 <=0 /100 WBC 11/20/2024 4:10 PM DOOR INSTALLER [facility] Neutrophil Absolute 6.0 1.7 - 7.0 10(9)/L 11/20/2024 4:10 PM DOOR INSTALLER [facility] Lymphocyte Absolute 0.7(L) 1.0 - 4.8 10(9)/L 11/20/2024 4:10 PM DOOR INSTALLER [facility] Monocyte Absolute 0.6 0.2 - 0.9 10(9)/L 11/20/2024 4:10 PM DOOR INSTALLER [facility] Eosinophil Absolute 0.2 0.0 - 0.5 10(9)/L 11/20/2024 4:10 PM DOOR INSTALLER [facility] Basophil Absolute 0.0 0.0 - 0.3 10(9)/L 11/20/2024 4:10 PM DOOR INSTALLER [facility] Immature Granulocyte % 0.4 0.0 - 0.5 % 11/20/2024 4:10 PM DOOR INSTALLER [facility] Blood Venipuncture / Unknown 11/20/2024 10:30 AM DOOR INSTALLER 11/20/2024 4:03 PM DOOR INSTALLER Ankita Gaviria DISK GRINDER, JOURNEYMAN MILLWRIGHT LAB_1 Tabatha l Result Performing Organization Address [facility] Phone Number [facility] [address] [place] [address] * (ABNORMAL) C-Reactive Protein (11/20/2024 10:30 AM DOOR INSTALLER) C-Reactive Protein 4.9(H) 0.0 - 0.5 mg/dL 11/20/2024 4:23 PM DOOR INSTALLER [facility] Blood VENOUS BLOOD SPECIMEN / Unknown Venipuncture / Unknown 11/20/2024 10:30 AM DOOR INSTALLER 11/20/2024 4:01 PM DOOR INSTALLER Ankita Gaviria DISK GRINDER, JOURNEYMAN MILLWRIGHT LAB_1 Tabatha l Result Performing Organization Address [facility] Phone Number [facility] [address] [place] [address] * Creatinine / GFR (11/20/2024 10:30 AM DOOR INSTALLER) Creatinine 0.83 0.73 - 1.18 mg/dL 11/20/2024 4:23 PM DOOR INSTALLER [facility] GFR, Estimated >60 >60 mL/min/1.7 3m2 11/20/2024 4:23 PM DOOR INSTALLER [facility] Blood VENOUS BLOOD SPECIMEN / Unknown Venipuncture / Unknown 11/20/2024 10:30 AM DOOR INSTALLER 11/20/2024 4:01 PM DOOR INSTALLER Ankita Claytonr DISK GRINDER, JOURNEYMAN MILLWRIGHT LAB_1 Tabatha l Result Performing Organization Address [facility] Phone Number [facility] [address] [place] [address] * (ABNORMAL) AST (11/20/2024 10:30 AM DOOR INSTALLER) AST (SGOT) 438(H) 10 - 40 U/L 11/20/2024 4:23 PM DOOR INSTALLER [facility] Blood VENOUS BLOOD SPECIMEN / Unknown Venipuncture / Unknown 11/20/2024 10:30 AM DOOR INSTALLER 11/20/2024 4:01 PM DOOR INSTALLER us Ankita Gaviria DISK GRINDER, JOURNEYMAN MILLWRIGHT LAB_1 Tabatha l Result [facility] [address] [place], [place] [phone] [place] [address] documented in this encounter Visit Diagnoses Diagnosis [...] encephalopathy documented in this encounter Care Teams Bass Singer Relationship Specialty Start Date End Date Sarah Mathews MD [address] [place] [address] PCP - General Family Practice 01/25/23 documented as of this encounter
--- OUTSIDE RECORDS SUMMARY | 2025-05-09 13:56 | XMS_ITS | Encounter Summary ---
Author Organization [facility] Address [address] [place] [address] Care Team Providers Care Tread Tuber Machine Operator Name Role Phone Sarah Mathews MD Primary Care Provi franko Encounter Details Date Type Department Care Team (Late st Contact Info) Description 04/17/2025 Lab Requisition [facility] [address] [place], [place] [address] Ankita Gaviria APRN, [place] [address] [place], [place] [phone] Acute and subacute infective endocarditis Social History [...] st Contact Info) Description 04/24/2025 Lab Requisition [facility] [address] [place] [address] Ankita Gaviria APRN, PLASTIC MAKER [address] [place], [place] [phone] Acute and subacute infective endocarditis 05/08/2025 Lab Requisition [facility] [address] [place] [address] Ankita Gaviria APRN, [address] [phone] Acute and subacute infective endocarditis 05/08/2025 Lab Requisition [facility] [address] [place] [address] nAkita Gaviria APRN, [address] [phone] Acute and subacute infective endocarditis 05/09/2025 Lab Requisition [facility] [address] [place], [place] [address] [phone] Ankita Gaviria APRN, [address] [phone] Metabolic encephalopathy documented as of this encounter Procedures Procedure Name Priority Date/Time Associated Diagnosis Comments CBC AND DIFFERENTIAL PANEL Routine 05/07/2025 7:43 AM CDT Acute and subacute infective endocarditis CREATININE / GFR Routine 05/07/2025 7:43 AM CDT Acute and subacute infective endocarditis COMPLETE BLOOD COUNT-W/DIFF Routine 05/07/2025 7:43 AM CDT Acute and subacute infective endocarditis C-REACTIVE PROTEIN Routine 05/07/2025 7: 43 AM CDT Acute and subacute infective endocarditis AST Routine 05/07/2025 7:43 AM CDT Acute and subacute infective endocarditis documented in this encounter Results * (ABNORMAL) Complete Blood Count-W/Diff (05/07/2025 7:43 AM CDT) WBC 6.4 3.5 - 10.5 x10(9)/L 05/07/2025 1:[address] [facility] [place] [facility] RBC 4.58 4.32 - 5.72 x10(12)/L 05/07/2025 1:[address] [facility] [place] [facility] Hemoglobin 14.1 13.5 - 17.5 g/dL 05/07/2025 1:[address] [facility] [place] [facility] HCT 43.7 38.8 - 50.0 % 05/07/2025 1:[address] [facility] [place] [facility] MCV 95.4 80.0 - 100.0 fL 05/07/2025 1:[address] [facility] [place] [facility] MCH 30.8 27.6 - 33.3 pg 05/07/2025 1:[address] [facility] [place] [facility] MCHC 32.3 31.5 - 35.2 g/dL 05/07/2025 1:[address] [facility] [place] [facility] RDW 14.8 11.9 - 15.5 % 05/07/2025 1:[address] [facility] [place] [facility] Platelets 126(L) 150 - 450 x10(9)/L 05/07/2025 1:[address] [facility] [place] [facility] Automated NRBC 0 <=0 /100 WBC 05/07/2025 1:[address] [facility] [place] [facility] Neutrophil Absolute 4.5 1.7 - 7.0 10(9)/L 05/07/2025 1:[address] [facility] [place] [facility] Lymphocyte Absolute 1.1 1.0 - 4.8 10(9)/L 05/07/2025 1:[address] [facility] [place] [facility] Monocyte Absolute 0.7 0.2 - 0.9 10(9)/L 05/07/2025 1:[address] [facility] [place] [facility] Eosinophil Absolute 0.1 0.0 - 0.5 10(9)/L 05/07/2025 1:[address] [facility] [place] [facility] Basophil Absolute 0.0 0.0 - 0.3 10(9)/L 05/07/2025 1:[address] [facility] [place] [facility] Immature Granulocyte % 0.3 0.0 - 0.5 % 05/07/2025 1:[address] [facility] [place] [facility] Blood Venipuncture / Unknown 05/07/2025 7:43 AM CDT 05/07/2025 1:39 PM CDT Ankita Gaviria MEASUREMENT AND SENSING TECHNICIAN, PLASTIC MAKER LAB_1 Tabatha l Result Performing Organization Address City/[facility] Co de Phone Number [facility] CLIA: [id number] [address] * C-Reactive Protein (05/07/2025 7:43 AM CDT) C-Reactive Protein 0.5 0.0 - 0.5 mg/dL 05/07/2025 1:[address] [facility] Blood Venipuncture / Unknown 05/07/2025 7:43 AM CDT 05/07/2025 1:37 PM CDT Ankita Gaviria MEASUREMENT AND SENSING TECHNICIAN, PLASTIC MAKER LAB_1 Tabatha l Result Performing Organization Address [facility] de Phone Number [facility] CLIA: [id number] [address] [place] [address] * (ABNORMAL) Creatinine / GFR (05/07/2025 7:43 AM CDT) Creatinine 1.35(H) 0.73 - 1.18 mg/dL 05/07/2025 1:[address] [facility] GFR, Estimated 51(L) >60 mL/min/1.7 3m2 05/07/2025 1:[address] [facility] Blood Venipuncture / Unknown 05/07/2025 7:43 AM CDT 05/07/2025 1:37 PM CDT Narrative [facility] - 05/07/2025 1:57 PM CDT The National Kidney Disease Education Program suggests measuring Cystatin C in patients with eGFRcrea of 45 to 59 ml/min/1.73^2 who do not have other markers of kidney damage (i.e. elevated urine Albumin/Creatinine Ratio or a prior Cystatin C confirming the presence of chronic kidney disease). us Ankita Yudelka Khadra LARAN, PLASTIC MAKER LAB_1 Tabatha l Result Performing Organization Address City/[facility] Co de Phone Number [facility] CLIA: [id number] [address] * AST (05/07/2025 7:43 AM CDT) AST (SGOT) 40 16 - 46 U/L 05/07/2025 1:[address] [facility] Blood Venipuncture / Unknown 05/07/2025 7:43 AM CDT 05/07/2025 1:37 PM CDT us Ankitakit Gaviria APRN, PLASTIC MAKER LAB_1 Tabatha l Result Performing Organization Address [facility] de Phone Number [facility] CLIA: [id number] [facility] [address] documented in this encounter Visit Diagnoses [...] encephalopathy documented in this encounter Care Teams Tread Tuber Machine Operator Relationship Specialty Start Date End Date Sarah Mathews MD [address] [place] [address] PCP - General Family Practice 01/25/23 documented as of this encounter
--- OUTSIDE RECORDS SUMMARY | 2025-05-09 13:56 | XMS_ITS | Encounter Summary ---
Author Organization [facility] Address [address] [place] [address] Care Team Providers Care Catering Truck Operator Name Role Phone Sarah Mathews MD Primary Care Provi franko Encounter Details Date Type Department Care Team (Late st Contact Info) Description 01/09/2025 Lab Requisition [facility] [address] [place], [place] [address] Ankita Gaviria APRN, [place] [address] [place], [place] [phone] Acute and subacute infective endocarditis Social History [...] st Contact Info) Description 04/24/2025 Lab Requisition [facility] [address] [place], [place] [address] Ankita Gaviria APRN, STUDENT OFFICER [address] [place], [place] [phone] Acute and subacute infective endocarditis 05/08/2025 Lab Requisition [facility] [address] [place] [address] Ankita Gaviria APRN, [address] [phone] Acute and subacute infective endocarditis 05/08/2025 Lab Requisition [facility] [address] [place] [address] Ankita Gaviria BAND LINING BANDER, [address] [phone] Acute and subacute infective endocarditis 05/09/2025 Lab Requisition [facility] [address] [employer] [place], [place] [address] [phone] Ankita Gaviria APRN, [address] [phone] Metabolic encephalopathy documented as of this encounter Procedures Procedure Name Priority Date/Time Associated Diagnosis Comments CBC AND DIFFERENTIAL PANEL Routine 01/29/2025 10:40 AM CDT Acute and subacute infective endocarditis CREATININE / GFR Routine 01/29/2025 10:4 0 AM CDT Acute and subacute infective endocarditis COMPLETE BLOOD COUNT-W/DIFF Routine 01/29/2025 10:40 AM CDT Acute and subacute infective endocarditis C-REACTIVE PROTEIN Routine 01/29/2025 10 :40 AM CDT Acute and subacute infective endocarditis AST Routine 01/29/2025 10:40 AM CDT Acute and subacute infective endocarditis documented in this encounter Results * (ABNORMAL) Complete Blood Count-W/Diff (01/29/2025 10:40 AM CDT) [facility] WBC 3.8 3.5 - 10.5 x10(9)/L 01/29/2025 5:15 PM CDT [facility] RBC 4.03(L) 4.32 - 5.72 x10(12)/L 01/29/2025 5:15 PM CDT [facility] Hemoglobin 12.2(L) 13.5 - 17.5 g/dL 01/29/2025 5:15 PM CDT [facility] HCT 37.3(L) 38.8 - 50.0 % 01/29/2025 5:15 PM CDT [facility] MCV 92.6 80.0 - 100.0 fL 01/29/2025 5:15 PM CDT [facility] MCH 30.3 27.6 - 33.3 pg 01/29/2025 5:15 PM CDT [facility] MCHC 32.7 31.5 - 35.2 g/dL 01/29/2025 5:15 PM CDT [facility] RDW 13.0 11.9 - 15.5 % 01/29/2025 5:15 PM CDT [facility] Platelets 166 150 - 450 x10(9)/L 01/29/2025 5:15 PM CDT [facility] Automated NRBC 0 <=0 /100 WBC 01/29/2025 5:15 PM CDT [facility] Neutrophil Absolute 2.1 1.7 - 7.0 10(9)/L 01/29/2025 5:15 PM CDT [facility] Lymphocyte Absolute 1.0 1.0 - 4.8 10(9)/L 01/29/2025 5:15 PM CDT [facility] Monocyte Absolute 0.7 0.2 - 0.9 10(9)/L 01/29/2025 5:15 PM CDT [facility] Eosinophil Absolute 0.1 0.0 - 0.5 10(9)/L 01/29/2025 5:15 PM CDT [facility] Basophil Absolute 0.0 0.0 - 0.3 10(9)/L 01/29/2025 5:15 PM CDT [facility] Immature Granulocyte % 0.3 0.0 - 0.5 % 01/29/2025 5:15 PM CDT [facility] Blood Venipuncture / Unknown 01/29/2025 10:40 AM CDT 01/29/2025 4:44 PM CDT us Ankita Gaviria APRN, STUDENT OFFICER LAB_1 Tabatha l Result Performing Organization Address [facility] de Phone Number [facility] [address] [place] [address] * C-Reactive Protein (01/29/2025 10:40 AM CDT) C-Reactive Protein <0.5 0.0 - 0.5 mg/dL 01/29/2025 5:38 PM CDT [facility] Blood Venipuncture / Unknown 01/29/2025 10:40 AM CDT 01/29/2025 4:44 PM CDT us Ankita Gaviria BAND LINING BANDER, STUDENT OFFICER LAB_1 Tabatha l Result Performing Organization Address [facility] Phone Number [facility] [address] [place] [address] * (ABNORMAL) Creatinine / GFR (01/29/2025 10:40 AM CDT) Creatinine 1.22(H) 0.73 - 1.18 mg/dL 01/29/2025 5:38 PM CDT [facility] GFR, Estimated 58(L) >60 mL/min/1.7 3m2 01/29/2025 5:38 PM CDT [facility] Blood Venipuncture / Unknown 01/29/2025 10:40 AM CDT 01/29/2025 4:44 PM CDT Narrative [facility] - 01/29/2025 5:38 PM CDT The National Kidney Disease Education Program suggests measuring Cystatin C in patients with eGFRcrea of 45 to 59 ml/min/1.73^2 who do not have other markers of kidney damage (i.e. elevated urine Albumin/Creatinine Ratio or a prior Cystatin C confirming the presence of chronic kidney disease). us Ankita Claytonr BAND LINING BANDER, STUDENT OFFICER LAB_1 Tabatha l Result Performing Organization Address City/[facility]/ZIP Co de Phone Number [facility] [address] * AST (01/29/2025 10:40 AM CDT) AST (SGOT) 35 10 - 40 U/L 01/29/2025 5:38 PM CDT [facility] Blood Venipuncture / Unknown 01/29/2025 10:40 AM CDT 01/29/2025 4:44 PM CDT Ankita Gaviria BAND LINING BANDER, STUDENT OFFICER LAB_1 Tabatha l Result Performing Organization Address [facility] de Phone Number [facility] [address] documented in this encounter Visit Diagnoses [...] encephalopathy documented in this encounter Care Teams Catering Truck Operator Relationship Specialty Start Date End Date Sarah Mathews MD [address] [place] [address] PCP - General Family Practice 01/25/23 documented as of this encounter
--- OUTSIDE RECORDS SUMMARY | 2025-05-09 13:56 | XMS_ITS | Encounter Summary ---
Author Organization [facility] Address [address] [place] [address] Care Team Providers Care Sap Security Consultant Name Role Phone Sarah Mathews MD Primary Care Provi franko Encounter Details Date Type Department Care Team (Late st Contact Info) Description 03/14/2025 Lab Requisition [facility] [address] [place], [place] [address] Ankita Gaviria APRN, [place] [address] [place], [place] [phone] Acute and subacute infective endocarditis Social History [...] Description 04/24/2025 Lab Requisition [facility] [address] [place], [place] [address] Ankita Gaviria APRN, TC OPERATOR [address] [place], [place] [phone] Acute and subacute infective endocarditis 05/08/2025 Lab Requisition [facility] [address] [place] [address] Ankita Gaviria APRN, [address] [phone] Acute and subacute infective endocarditis 05/08/2025 Lab Requisition [facility] [address] [place] [address] Ankita Gaviria CHANNEL MANAGER, [address] [phone] Acute and subacute infective endocarditis 05/09/2025 Lab Requisition [facility] [address] [place] [place], [place] [address] [phone] Ankita Gaviria APRN, [address] [phone] Metabolic encephalopathy documented as of this encounter Procedures Procedure Name Priority Date/Time Associated Diagnosis Comments CBC AND DIFFERENTIAL PANEL Routine 04/02/2025 8:00 AM CDT Acute and subacute infective endocarditis CREATININE / GFR Routine 04/02/2025 8:00 AM CDT Acute and subacute infective endocarditis COMPLETE BLOOD COUNT-W/DIFF Routine 04/02/2025 8:00 AM CDT Acute and subacute infective endocarditis C-REACTIVE PROTEIN Routine 04/02/2025 8: 00 AM CDT Acute and subacute infective endocarditis AST Routine 04/02/2025 8:00 AM CDT Acute and subacute infective endocarditis documented in this encounter Results * (ABNORMAL) Complete Blood Count-W/Diff (04/02/2025 8:00 AM CDT) WBC 6.6 3.5 - 10.5 x10(9)/L 04/02/2025 12:06 PM CDT [facility] RBC 4.36 4.32 - 5.72 x10(12)/L 04/02/2025 12:06 PM CDT [facility] Hemoglobin 13.4(L) 13.5 - 17.5 g/dL 04/02/2025 12:06 PM CDT [facility] HCT 39.2 38.8 - 50.0 % 04/02/2025 12:06 PM CDT [facility] MCV 89.9 80.0 - 100.0 fL 04/02/2025 12:06 PM CDT [facility] MCH 30.7 27.6 - 33.3 pg 04/02/2025 12:06 PM CDT [facility] MCHC 34.2 31.5 - 35.2 g/dL 04/02/2025 12:06 PM CDT [facility] RDW 12.9 11.9 - 15.5 % 04/02/2025 12:06 PM CDT [facility] Platelets 145(L) 150 - 450 x10(9)/L 04/02/2025 12:06 PM CDT [facility] Automated NRBC 0 <=0 /100 WBC 04/02/2025 12:06 PM CDT [facility] Neutrophil Absolute 4.0 1.7 - 7.0 10(9)/L 04/02/2025 12:06 PM CDT [facility] Lymphocyte Absolute 1.5 1.0 - 4.8 10(9)/L 04/02/2025 12:06 PM CDT [facility] Monocyte Absolute 0.8 0.2 - 0.9 10(9)/L 04/02/2025 12:06 PM CDT [facility] Eosinophil Absolute 0.2 0.0 - 0.5 10(9)/L 04/02/2025 12:06 PM CDT [facility] Basophil Absolute 0.0 0.0 - 0.3 10(9)/L 04/02/2025 12:06 PM CDT [facility] Immature Granulocyte % 0.5 0.0 - 0.5 % 04/02/2025 12:06 PM CDT [facility] Blood Venipuncture / Unknown 04/02/2025 8:00 AM CDT 04/02/2025 11:58 AM CDT us Ankita Jha Forresthalina BIRGIT, TC OPERATOR LAB_1 Tabatha l Result Performing Organization Address [facility] de Phone Number [facility] [address] [place] [address] * C-Reactive Protein (04/02/2025 8:00 AM CDT) C-Reactive Protein <0.5 0.0 - 0.5 mg/dL 04/02/2025 12:35 PM CDT [facility] Blood Venipuncture / Unknown 04/02/2025 8:00 AM CDT 04/02/2025 11:55 AM CDT us Charlest Yudelka Khadra GENAO, TC OPERATOR LAB_1 Tabatha l Result Performing Organization Address [facility] Phone Number [facility] [address] [place] [address] * (ABNORMAL) Creatinine / GFR (04/02/2025 8:00 AM CDT) Creatinine 1.36(H) 0.73 - 1.18 mg/dL 04/02/2025 12:35 PM CDT [facility] GFR, Estimated 51(L) >60 mL/min/1.7 3m2 04/02/2025 12:35 PM CDT [facility] Blood Venipuncture / Unknown 04/02/2025 8:00 AM CDT 04/02/2025 11:55 AM CDT Narrative [facility] - 04/02/2025 12:35 PM CDT The National Kidney Disease Education Program suggests measuring Cystatin C in patients with eGFRcrea of 45 to 59 ml/min/1.73^2 who do not have other markers of kidney damage (i.e. elevated urine Albumin/Creatinine Ratio or a prior Cystatin C confirming the presence of chronic kidney disease). us Ankita Smallskaren CHANNEL MANAGER, TC OPERATOR LAB_1 Tabatha l Result Performing Organization Address [facility] Co de Phone Number [facility] [address] * AST (04/02/2025 8:00 AM CDT) AST (SGOT) 30 16 - 46 U/L 04/02/2025 12:35 PM CDT [facility] Blood Venipuncture / Unknown 04/02/2025 8:00 AM CDT 04/02/2025 11:55 AM CDT us Ankita Gaviria CHANNEL MANAGER, TC OPERATOR LAB_1 Tabatha l Result Performing Organization Address [facility] de Phone Number [facility] [address] documented in this encounter Visit Diagnoses [...] encephalopathy documented in this encounter Care Teams Sap Security Consultant Relationship Specialty Start Date End Date Sarah Mathews MD [address] [place], [place] [phone] PCP - General Family Practice 01/25/23 documented as of this encounter
--- OUTSIDE RECORDS SUMMARY | 2025-05-09 13:56 | XMS_ITS | Encounter Summary ---
Author Organization [facility] Address [address] [place] [address] Care Team Providers Care Air Turning Machine Feeder Name Role Phone Sarah Mathews MD Primary Care Provi franko Encounter Details Date Type Department Care Team (Late st Contact Info) Description 02/20/2025 Lab Requisition [facility] [address] [place], [place] [address] Ankita Gaviria APRN, [place] [address] [place], [place] [phone] Acute and subacute infective endocarditis Social History [...] st Contact Info) Description 04/24/2025 Lab Requisition [facility] [address] [place], [place] [address] Ankita Gaviria APRN, COAL EQUIPMENT OPERATOR [address] [place], [place] [phone] Acute and subacute infective endocarditis 05/08/2025 Lab Requisition [facility] [address] [employer] [place] [address] Ankita Gaviria APRN, [address] [phone] Acute and subacute infective endocarditis 05/08/2025 Lab Requisition [facility] [address] [employer] [place] [address] Ankita Gaviria FORMULA WEIGHER, [address] [phone] Acute and subacute infective endocarditis 05/09/2025 Lab Requisition [facility] [address] [employer] [place], [place] [address] [phone] Ankita Gaviria APRN, [address] [phone] Metabolic encephalopathy documented as of this encounter Procedures Procedure Name Priority Date/Time Associated Diagnosis Comments CBC AND DIFFERENTIAL PANEL Routine 03/05/2025 10:05 [...] encounter Results * (ABNORMAL) Complete Blood Count-W/Diff (03/05/2025 10:05 AM CDT) [facility] WBC 6.3 3.5 - 10.5 x10(9)/L 03/05/2025 3:57 PM CDT [facility] RBC 4.13(L) 4.32 - 5.72 x10(12)/L 03/05/2025 3:57 PM CDT [facility] Hemoglobin 12.8(L) 13.5 - 17.5 g/dL 03/05/2025 3:57 PM CDT [facility] HCT 38.4(L) 38.8 - 50.0 % 03/05/2025 3:57 PM CDT [facility] MCV 93.0 80.0 - 100.0 fL 03/05/2025 3:57 PM CDT [facility] MCH 31.0 27.6 - 33.3 pg 03/05/2025 3:57 PM CDT [facility] MCHC 33.3 31.5 - 35.2 g/dL 03/05/2025 3:57 PM CDT [facility] RDW 13.3 11.9 - 15.5 % 03/05/2025 3:57 PM CDT [facility] Platelets 126(L) 150 - 450 x10(9)/L 03/05/2025 3:57 PM CDT [facility] Automated NRBC 0 <=0 /100 WBC 03/05/2025 3:57 PM CDT [facility] Neutrophil Absolute 4.3 1.7 - 7.0 10(9)/L 03/05/2025 3:57 PM CDT [facility] Lymphocyte Absolute 1.2 1.0 - 4.8 10(9)/L 03/05/2025 3:57 PM CDT [facility] Monocyte Absolute 0.6 0.2 - 0.9 10(9)/L 03/05/2025 3:57 PM CDT [facility] Eosinophil Absolute 0.2 0.0 - 0.5 10(9)/L 03/05/2025 3:57 PM CDT [facility] Basophil Absolute 0.0 0.0 - 0.3 10(9)/L 03/05/2025 3:57 PM CDT [facility] Immature Granulocyte % 0.2 0.0 - 0.5 % 03/05/2025 3:57 PM CDT [facility] Blood Venipuncture / Unknown 03/05/2025 10:05 AM CDT 03/05/2025 3:47 PM CDT us Ankita Gaviria FORMULA WEIGHER, COAL EQUIPMENT OPERATOR LAB_1 Tabatha l Result Performing Organization Address [facility] Phone Number [facility] [address] [place] [address] * C-Reactive Protein (03/05/2025 10:05 AM CDT) C-Reactive Protein <0.5 0.0 - 0.5 mg/dL 03/05/2025 4:05 PM CDT [facility] Blood Venipuncture / Unknown 03/05/2025 10:05 AM CDT 03/05/2025 3:46 PM CDT us Ankita Gaviria APRN, COAL EQUIPMENT OPERATOR LAB_1 Tabatha l Result Performing Organization Address [facility] Phone Number [facility] [address] [place] [address] * (ABNORMAL) Creatinine / GFR (03/05/2025 10:05 AM CDT) Creatinine 1.33(H) 0.73 - 1.18 mg/dL 03/05/2025 4:05 PM CDT [facility] GFR, Estimated 52(L) >60 mL/min/1.7 3m2 03/05/2025 4:05 PM CDT [facility] Blood Venipuncture / Unknown 03/05/2025 10:05 AM CDT 03/05/2025 3:46 PM CDT Narrative [facility] - 03/05/2025 4:05 PM CDT The National Kidney Disease Education Program suggests measuring Cystatin C in patients with eGFRcrea of 45 to 59 ml/min/1.73^2 who do not have other markers of kidney damage (i.e. elevated urine Albumin/Creatinine Ratio or a prior Cystatin C confirming the presence of chronic kidney disease). us Ankita Claytonr FORMULA WEIGHER, COAL EQUIPMENT OPERATOR LAB_1 Tabatha l Result Performing Organization Address City/[facility]/ZIP Co de Phone Number [facility] [address] * AST (03/05/2025 10:05 AM CDT) AST (SGOT) 28 10 - 40 U/L 03/05/2025 4:05 PM CDT [facility] Blood Venipuncture / Unknown 03/05/2025 10:05 AM CDT 03/05/2025 3:46 PM CDT Ankita Gaviria FORMULA WEIGHER, COAL EQUIPMENT OPERATOR LAB_1 Tabatha l Result Performing Organization Address [facility] Co de Phone Number [facility] [address] documented in this encounter Visit Diagnoses [...] encephalopathy documented in this encounter Care Teams Air Turning Machine Feeder Relationship Specialty Start Date End Date Sarah Mathews MD [address] [place] [address] PCP - General Family Practice 01/25/23 documented as of this encounter
--- OUTSIDE RECORDS SUMMARY | 2025-05-09 13:56 | XMS_ITS | Encounter Summary ---
Author Organization [facility] Address [address] [place] [address] Care Team Providers Care Forging Press Operator Name Role Phone Sarah Mathews MD Primary Care Provi franko Encounter Details Date Type Department Care Team (Late st Contact Info) Description 03/14/2025 Lab Requisition [facility] [address] [place], [place] [address] Ankita Gaviria APRN, [place] [phone] [place], [place] [phone] Acute and subacute infective endocarditis Social History [...] st Contact Info) Description 04/24/2025 Lab Requisition [facility] [address] [place], [place] [address] Ankita Gaviria APRN, ROCKET MOTOR TESTER [address] [place], [place] [phone] Acute and subacute infective endocarditis 05/08/2025 Lab Requisition [facility] [address] [place] [address] Ankita Gaviria APRN, [address] [phone] Acute and subacute infective endocarditis 05/08/2025 Lab Requisition [facility] [address] [place] [address] Ankita Gaviria APRN, [address] [phone] Acute and subacute infective endocarditis 05/09/2025 Lab Requisition [facility] [address] [employer] [place], [place] [address] [phone] Ankita Gaviria APRN, [address] [phone] Metabolic encephalopathy documented as of this encounter Procedures Procedure Name Priority Date/Time Associated Diagnosis Comments CBC AND DIFFERENTIAL PANEL Routine 04/09/2025 11:47 [...] encounter Results * (ABNORMAL) Complete Blood Count-W/Diff (04/09/2025 11:47 AM CDT) [facility] WBC 6.6 3.5 - 10.5 x10(9)/L 04/09/2025 2:16 PM CDT [facility] RBC 4.07(L) 4.32 - 5.72 x10(12)/L 04/09/2025 2:16 PM CDT [facility] Hemoglobin 12.5(L) 13.5 - 17.5 g/dL 04/09/2025 2:16 PM CDT [facility] HCT 37.2(L) 38.8 - 50.0 % 04/09/2025 2:16 PM CDT [facility] MCV 91.4 80.0 - 100.0 fL 04/09/2025 2:16 PM CDT [facility] MCH 30.7 27.6 - 33.3 pg 04/09/2025 2:16 PM CDT [facility] MCHC 33.6 31.5 - 35.2 g/dL 04/09/2025 2:16 PM CDT [facility] RDW 13.1 11.9 - 15.5 % 04/09/2025 2:16 PM CDT [facility] Platelets 136(L) 150 - 450 x10(9)/L 04/09/2025 2:16 PM CDT [facility] Automated NRBC 0 <=0 /100 WBC 04/09/2025 2:16 PM CDT [facility] Neutrophil Absolute 4.2 1.7 - 7.0 10(9)/L 04/09/2025 2:16 PM CDT [facility] Lymphocyte Absolute 1.2 1.0 - 4.8 10(9)/L 04/09/2025 2:16 PM CDT [facility] Monocyte Absolute 0.9 0.2 - 0.9 10(9)/L 04/09/2025 2:16 PM CDT [facility] Eosinophil Absolute 0.2 0.0 - 0.5 10(9)/L 04/09/2025 2:16 PM CDT [facility] Basophil Absolute 0.0 0.0 - 0.3 10(9)/L 04/09/2025 2:16 PM CDT [facility] Immature Granulocyte % 0.5 0.0 - 0.5 % 04/09/2025 2:16 PM CDT [facility] Blood Venipuncture / Unknown 04/09/2025 11:47 AM CDT 04/09/2025 1:43 PM CDT us Ankita Gaviria COSTUME MAKER, ROCKET MOTOR TESTER LAB_1 Tabatha l Result Performing Organization Address [facility] Phone Number [facility] [address] [place] [address] * C-Reactive Protein (04/09/2025 11:47 AM CDT) C-Reactive Protein <0.5 0.0 - 0.5 mg/dL 04/09/2025 2:23 PM CDT [facility] Blood Venipuncture / Unknown 04/09/2025 11:47 AM CDT 04/09/2025 1:43 PM CDT us Ankita Gaviria COSTUME MAKER, ROCKET MOTOR TESTER LAB_1 Tab[facility] l Result Performing Organization Address [facility] Phone Number [facility] [address] [place] [address] * (ABNORMAL) Creatinine / GFR (04/09/2025 11:47 AM CDT) Creatinine 1.32(H) 0.73 - 1.18 mg/dL 04/09/2025 2:23 PM CDT [facility] GFR, Estimated 53(L) >60 mL/min/1.7 3m2 04/09/2025 2:23 PM CDT [facility] Blood Venipuncture / Unknown 04/09/2025 11:47 AM CDT 04/09/2025 1:43 PM CDT Narrative [facility] - 04/09/2025 2:23 PM CDT The National Kidney Disease Education Program suggests measuring Cystatin C in patients with eGFRcrea of 45 to 59 ml/min/1.73^2 who do not have other markers of kidney damage (i.e. elevated urine Albumin/Creatinine Ratio or a prior Cystatin C confirming the presence of chronic kidney disease). us Ankita Claytonr COSTUME MAKER, ROCKET MOTOR TESTER LAB_1 [facility] l Result Performing Organization Address City/[facility]/ZIP Co de Phone Number [facility] [address] * AST (04/09/2025 11:47 AM CDT) AST (SGOT) 34 16 - 46 U/L 04/09/2025 2:23 PM CDT [facility] Blood Venipuncture / Unknown 04/09/2025 11:47 AM CDT 04/09/2025 1:43 PM CDT Ankita Gaviria COSTUME MAKER, ROCKET MOTOR TESTER LAB_1 Tab[facility] l Result Performing Organization Address [facility] [[email or web address]] Co de Phone Number [facility] [address] documented in this encounter Visit Diagnoses [...] encephalopathy documented in this encounter Care Teams Forging Press Operator Relationship Specialty Start Date End Date Sarah Mathews MD [address] [place] [address] PCP - General Family Practice 01/25/23 documented as of this encounter
--- OUTSIDE RECORDS SUMMARY | 2025-05-09 13:56 | XMS_ITS | Encounter Summary ---
Author Organization [email or web address] Address [address] [place] [address] Care Team Providers Care Motor Express Clerk Name Role Phone Sarah Mathews MD Primary Care Provi franko Encounter Details Date Type Department Care Team (Late st Contact Info) Description 02/27/2025 Lab Requisition [facility] [address] [place], [place] [address] Ankita Gaviria APRN, [place] [address] [place], [place] [phone] Acute and subacute infective endocarditis Social History [...] Description 04/24/2025 Lab Requisition [facility] [address] [place], [place] [address] Ankita Gaviria APRN, COMPUTER SUPPORT SPECIALIST INSTRUCTOR [address] [place], [place] [phone] Acute and subacute infective endocarditis 05/08/2025 Lab Requisition [facility] [address] [place] [address] Ankita Gaviria APRN, [address] [phone] Acute and subacute infective endocarditis 05/08/2025 Lab Requisition [facility] [address] [place] [address] Ankita Gaviria APRN, [address] [phone] Acute and subacute infective endocarditis 05/09/2025 Lab Requisition [facility] [address] [employer] [place], [place] [address] [phone] Ankita Gaviria APRN, [address] [phone] Metabolic encephalopathy documented as of this encounter Procedures Procedure Name Priority Date/Time Associated Diagnosis Comments CBC AND DIFFERENTIAL PANEL Routine 03/19/2025 11:45 [...] encounter Results * (ABNORMAL) Complete Blood Count-W/Diff (03/19/2025 11:45 AM CDT) [facility] WBC 6.2 3.5 - 10.5 x10(9)/L 03/19/2025 6:27 PM CDT [facility] RBC 4.32 4.32 - 5.72 x10(12)/L 03/19/2025 6:27 PM CDT [facility] Hemoglobin 13.3(L) 13.5 - 17.5 g/dL 03/19/2025 6:27 PM CDT [facility] HCT 38.9 38.8 - 50.0 % 03/19/2025 6:27 PM CDT [facility] MCV 90.0 80.0 - 100.0 fL 03/19/2025 6:27 PM CDT [facility] MCH 30.8 27.6 - 33.3 pg 03/19/2025 6:27 PM CDT [facility] MCHC 34.2 31.5 - 35.2 g/dL 03/19/2025 6:27 PM CDT [facility] RDW 13.2 11.9 - 15.5 % 03/19/2025 6:27 PM CDT [facility] Platelets 137(L) 150 - 450 x10(9)/L 03/19/2025 6:27 PM CDT [facility] Automated NRBC 0 <=0 /100 WBC 03/19/2025 6:27 PM CDT [facility] Neutrophil Absolute 4.0 1.7 - 7.0 10(9)/L 03/19/2025 6:27 PM CDT [facility] Lymphocyte Absolute 1.2 1.0 - 4.8 10(9)/L 03/19/2025 6:27 PM CDT [facility] Monocyte Absolute 0.8 0.2 - 0.9 10(9)/L 03/19/2025 6:27 PM CDT [facility] Eosinophil Absolute 0.2 0.0 - 0.5 10(9)/L 03/19/2025 6:27 PM CDT [facility] Basophil Absolute 0.0 0.0 - 0.3 10(9)/L 03/19/2025 6:27 PM CDT [facility] Immature Granulocyte % 0.2 0.0 - 0.5 % 03/19/2025 6:27 PM CDT [facility] Blood Venipuncture / Unknown 03/19/2025 11:45 AM CDT 03/19/2025 5:54 PM CDT Result Sophia Gaviria APRN, COMPUTER SUPPORT SPECIALIST INSTRUCTOR LAB_1 Tabatha l Result Performing Organization Address [facility] Phone Number [facility] [address] [place] [address] * C-Reactive Protein (03/19/2025 11:45 AM CDT) C-Reactive Protein <0.5 0.0 - 0.5 mg/dL 03/19/2025 8:21 PM CDT [facility] Blood Venipuncture / Unknown 03/19/2025 11:45 AM CDT 03/19/2025 5:53 PM CDT us Ankita Gaviria APRN, COMPUTER SUPPORT SPECIALIST INSTRUCTOR LAB_1 Tabatha l Result Performing Organization Address [facility] Phone Number [facility] [address] [place] [address] * AST (03/19/2025 11:45 AM CDT) AST (SGOT) 37 16 - 46 U/L 03/19/2025 8:21 PM CDT [facility] Blood Venipuncture / Unknown 03/19/2025 11:45 AM CDT 03/19/2025 5:53 PM CDT us Ankita Gaviria APRN, COMPUTER SUPPORT SPECIALIST INSTRUCTOR LAB_1 Tabatha l Result Performing Organization Address [facility] Phone Number [facility] [address] [place] [address] * (ABNORMAL) Creatinine / GFR (03/19/2025 11:45 AM CDT) Creatinine 1.30(H) 0.73 - 1.18 mg/dL 03/19/2025 8:21 PM CDT [facility] GFR, Estimated 54(L) >60 mL/min/1.7 3m2 03/19/2025 8:21 PM CDT [facility] Blood Venipuncture / Unknown 03/19/2025 11:45 AM CDT 03/19/2025 5:53 PM CDT Narrative [facility] - 03/19/2025 8:21 PM CDT The National Kidney Disease Education Program suggests measuring Cystatin C in patients with eGFRcrea of 45 to 59 ml/min/1.73^2 who do not have other markers of kidney damage (i.e. elevated urine Albumin/Creatinine Ratio or a prior Cystatin C confirming the presence of chronic kidney disease). us Ankita Gaviria APRN, COMPUTER SUPPORT SPECIALIST INSTRUCTOR LAB_1 Tabatha l Result [facility] [address] documented in this encounter Visit Diagnoses [...] encephalopathy documented in this encounter Care Teams Motor Express Clerk Relationship Specialty Start Date End Date Sarah Mathews MD [address] [place] [address] PCP - General Family Practice 01/25/23 documented as of this encounter
--- OUTSIDE RECORDS SUMMARY | 2025-05-09 13:56 | XMS_ITS | Encounter Summary ---
Author Organization [facility] Address [address] [place] [address] Care Team Providers Care Service Writer Name Role Phone Sarah Mathews MD Primary Care Provi franko Encounter Details Date Type Department Care Team (Late st Contact Info) Description 11/12/2024 Lab Requisition [facility] [address] [place], [place] [address] Ankita Gaviria APRN, [place] [phone] [place], [place] [phone] Acute and subacute infective endocarditis Social History [...] st Contact Info) Description 04/24/2025 Lab Requisition [facility] [address] [place] [address] Ankita Gaviria APRN, PIT CLERK [address] [place], [place] [phone] Acute and subacute infective endocarditis 05/08/2025 Lab Requisition [facility] [address] [email or web address] [address] Ankita Gaviria APRN, [address] [phone] Acute and subacute infective endocarditis 05/08/2025 Lab Requisition [facility] [address] [email or web address] [address] Ankita Gaviria APRN, [address] [address] Acute and subacute infective endocarditis 05/09/2025 Lab Requisition [facility] [email or web address] [place], [place] [address] [phone] Ankita Gaviria APRN, [address] [phone] Metabolic encephalopathy documented as of this encounter Procedures Procedure Name Priority Date/Time Associated Diagnosis Comments CBC AND DIFFERENTIAL PANEL Routine 11/13/2024 1:20 PM FRUIT AND VEGETABLE PACKER Acute and subacute infective endocarditis CREATININE / GFR Routine 11/13/2024 1:20 PM FRUIT AND VEGETABLE PACKER Acute and subacute infective endocarditis COMPLETE BLOOD COUNT-W/DIFF Routine 11/13/2024 1:20 PM FRUIT AND VEGETABLE PACKER Acute and subacute infective endocarditis C-REACTIVE PROTEIN Routine 11/13/2024 1: 20 PM FRUIT AND VEGETABLE PACKER Acute and subacute infective endocarditis AST Routine 11/13/2024 1:20 PM FRUIT AND VEGETABLE PACKER Acute and subacute infective endocarditis documented in this encounter Results * (ABNORMAL) Complete Blood Count-W/Diff (11/13/2024 1:20 PM FRUIT AND VEGETABLE PACKER) WBC 7.1 3.5 - 10.5 x10(9)/L 11/13/2024 3:22 PM FRUIT AND VEGETABLE PACKER [facility] RBC 3.99(L) 4.32 - 5.72 x10(12)/L 11/13/2024 3:22 PM FRUIT AND VEGETABLE PACKER [facility] Hemoglobin 12.2(L) 13.5 - 17.5 g/dL 11/13/2024 3:22 PM FRUIT AND VEGETABLE PACKER [facility] HCT 35.9(L) 38.8 - 50.0 % 11/13/2024 3:22 PM FRUIT AND VEGETABLE PACKER [facility] MCV 90.0 80.0 - 100.0 fL 11/13/2024 3:22 PM FRUIT AND VEGETABLE PACKER [facility] MCH 30.6 27.6 - 33.3 pg 11/13/2024 3:22 PM FRUIT AND VEGETABLE PACKER [facility] MCHC 34.0 31.5 - 35.2 g/dL 11/13/2024 3:22 PM FRUIT AND VEGETABLE PACKER [facility] RDW 12.0 11.9 - 15.5 % 11/13/2024 3:22 PM FRUIT AND VEGETABLE PACKER [facility] Platelets 198 150 - 450 x10(9)/L 11/13/2024 3:22 PM FRUIT AND VEGETABLE PACKER [facility] Automated NRBC 0 <=0 /100 WBC 11/13/2024 3:22 PM FRUIT AND VEGETABLE PACKER [facility] Neutrophil Absolute 5.2 1.7 - 7.0 10(9)/L 11/13/2024 3:22 PM FRUIT AND VEGETABLE PACKER [facility] Lymphocyte Absolute 0.9(L) 1.0 - 4.8 10(9)/L 11/13/2024 3:22 PM FRUIT AND VEGETABLE PACKER [facility] Monocyte Absolute 0.8 0.2 - 0.9 10(9)/L 11/13/2024 3:22 PM FRUIT AND VEGETABLE PACKER [facility] Eosinophil Absolute 0.2 0.0 - 0.5 10(9)/L 11/13/2024 3:22 PM FRUIT AND VEGETABLE PACKER [facility] Basophil Absolute 0.0 0.0 - 0.3 10(9)/L 11/13/2024 3:22 PM FRUIT AND VEGETABLE PACKER [facility] Immature Granulocyte % 0.7(H) 0.0 - 0.5 % 11/13/2024 3:22 PM FRUIT AND VEGETABLE PACKER [facility] Blood Venipuncture / Unknown 11/13/2024 1:20 PM FRUIT AND VEGETABLE PACKER 11/13/2024 3:18 PM FRUIT AND VEGETABLE PACKER Ankita Gaviria COMPOSITOR APPRENTICE, PIT CLERK LAB_1 Tabatha l Result Performing Organization Address [facility] Phone Number [facility] [address] [place] [address] * (ABNORMAL) C-Reactive Protein (11/13/2024 1:20 PM FRUIT AND VEGETABLE PACKER) C-Reactive Protein 2.8(H) 0.0 - 0.5 mg/dL 11/13/2024 4:03 PM FRUIT AND VEGETABLE PACKER [facility] Blood VENOUS BLOOD SPECIMEN / Unknown Venipuncture / Unknown 11/13/2024 1:20 PM FRUIT AND VEGETABLE PACKER 11/13/2024 3:17 PM FRUIT AND VEGETABLE PACKER Ankita Smallskaren GENAO, PIT CLERK LAB_1 Tabatha l Result Performing Organization Address [facility] Phone Number [facility] [address] [place] [address] * Creatinine / GFR (11/13/2024 1:20 PM FRUIT AND VEGETABLE PACKER) Creatinine 0.93 0.73 - 1.18 mg/dL 11/13/2024 4:03 PM FRUIT AND VEGETABLE PACKER [facility] GFR, Estimated >60 >60 mL/min/1.7 3m2 11/13/2024 4:03 PM FRUIT AND VEGETABLE PACKER [facility] Blood VENOUS BLOOD SPECIMEN / Unknown Venipuncture / Unknown 11/13/2024 1:20 PM FRUIT AND VEGETABLE PACKER 11/13/2024 3:17 PM FRUIT AND VEGETABLE PACKER Ankita Smallshelenehalina COMPOSITOR APPRENTICE, PIT CLERK LAB_1 Tabatha l Result Performing Organization Address [facility] Phone Number [facility] [address] [place] [address] * AST (11/13/2024 1:20 PM FRUIT AND VEGETABLE PACKER) AST (SGOT) 32 10 - 40 U/L 11/13/2024 4:03 PM FRUIT AND VEGETABLE PACKER [facility] Blood VENOUS BLOOD SPECIMEN / Unknown Venipuncture / Unknown 11/13/2024 1:20 PM FRUIT AND VEGETABLE PACKER 11/13/2024 3:17 PM FRUIT AND VEGETABLE PACKER Ankita Gaviria COMPOSITOR APPRENTICE, PIT CLERK LAB_1 Tabatha l Result [facility] [address] [place], [place] [address] documented in this encounter Visit Diagnoses [...] encephalopathy documented in this encounter Care Teams Service Writer Relationship Specialty Start Date End Date Sarah Mathews MD [address] [place] [address] PCP - General Family Practice 01/25/23 documented as of this encounter
--- OUTSIDE RECORDS SUMMARY | 2025-05-09 13:56 | XMS_ITS | Encounter Summary ---
Author Organization [email or web address] Address [address] [place] [address] Care Team Providers Care Publishing Manager Name Role Phone Sarah Mathews MD Primary Care Provi franko Encounter Details Date Type Department Care Team (Late st Contact Info) Description 02/06/2025 Lab Requisition [facility] [address] [place], [place] [address] Ankita Gaviria APRN, [place] [address] [place], [place] [phone] Acute and subacute infective endocarditis Social History [...] Description 04/24/2025 Lab Requisition [facility] [address] [place], [place] [address] Ankita Gaviria APRN, SUPERVISOR WATER SOFTENER SERVICE [address] [place], [place] [phone] Acute and subacute infective endocarditis 05/08/2025 Lab Requisition [facility] [address] [place] [address] Ankita Gaviria APRN, [address] 100167 [phone] Acute and subacute infective endocarditis 05/08/2025 Lab Requisition [facility] [address] [place] [address] Ankita Gaviria APRN, [address] [phone] Acute and subacute infective endocarditis 05/09/2025 Lab Requisition [facility] [address] [place], [place] [address] [phone] Ankita Gaviria APRN, [address] 333432 [phone] Metabolic encephalopathy documented as of this encounter Procedures Procedure Name Priority Date/Time Associated Diagnosis Comments CBC AND DIFFERENTIAL PANEL Routine 02/19/2025 11:12 [...] this encounter Results * Complete Blood Count-W/Diff (02/19/2025 11:12 AM CDT) WBC 7.2 3.5 - 10.5 x10(9)/L 02/19/2025 2:34 PM CDT [facility] RBC 4.53 4.32 - 5.72 x10(12)/L 02/19/2025 2:34 PM CDT [facility] Hemoglobin 14.1 13.5 - 17.5 g/dL 02/19/2025 2:34 PM CDT [facility] HCT 40.6 38.8 - 50.0 % 02/19/2025 2:34 PM CDT [facility] MCV 89.6 80.0 - 100.0 fL 02/19/2025 2:34 PM CDT [facility] MCH 31.1 27.6 - 33.3 pg 02/19/2025 2:34 PM CDT [facility] MCHC 34.7 31.5 - 35.2 g/dL 02/19/2025 2:34 PM CDT [facility] RDW 12.8 11.9 - 15.5 % 02/19/2025 2:34 PM CDT [facility] Platelets 156 150 - 450 x10(9)/L 02/19/2025 2:34 PM CDT [facility] Automated NRBC 0 <=0 /100 WBC 02/19/2025 2:34 PM CDT [facility] Neutrophil Absolute 4.3 1.7 - 7.0 10(9)/L 02/19/2025 2:34 PM CDT [facility] Lymphocyte Absolute 1.8 1.0 - 4.8 10(9)/L 02/19/2025 2:34 PM CDT [facility] Monocyte Absolute 0.8 0.2 - 0.9 10(9)/L 02/19/2025 2:34 PM CDT [facility] Eosinophil Absolute 0.2 0.0 - 0.5 10(9)/L 02/19/2025 2:34 PM CDT [facility] Basophil Absolute 0.0 0.0 - 0.3 10(9)/L 02/19/2025 2:34 PM CDT [facility] Immature Granulocyte % 0.3 0.0 - 0.5 % 02/19/2025 2:34 PM CDT [facility] Blood Venipuncture / Unknown 02/19/2025 11:12 AM CDT 02/19/2025 2:22 PM CDT Result [facility] Ankita Gaviria APRN, SUPERVISOR WATER SOFTENER SERVICE LAB_1 Tabatha l Result Performing Organization Address [facility] de Phone Number [facility] [address] [place] [address] * C-Reactive Protein (02/19/2025 11:12 AM CDT) C-Reactive Protein <0.5 0.0 - 0.5 mg/dL 02/19/2025 3:10 PM CDT [facility] Blood Venipuncture / Unknown 02/19/2025 11:12 AM CDT 02/19/2025 2:21 PM CDT Ankita Gaviria APRN, SUPERVISOR WATER SOFTENER SERVICE LAB_1 Tabatha l Result Performing Organization Address [facility] Phone Number [facility] [address] [place] [address] * (ABNORMAL) Creatinine / GFR (02/19/2025 11:12 AM CDT) Creatinine 1.23(H) 0.73 - 1.18 mg/dL 02/19/2025 3:10 PM CDT [facility] GFR, Estimated 57(L) >60 mL/min/1.7 3m2 02/19/2025 3:10 PM CDT [facility] Blood Venipuncture / Unknown 02/19/2025 11:12 AM CDT 02/19/2025 2:21 PM CDT Narrative [facility] - 02/19/2025 3:10 PM CDT The National Kidney Disease Education Program suggests measuring Cystatin C in patients with eGFRcrea of 45 to 59 ml/min/1.73^2 who do not have other markers of kidney damage (i.e. elevated urine Albumin/Creatinine Ratio or a prior Cystatin C confirming the presence of chronic kidney disease). Ankita A Bebler ASSISTANT BASEBALL COACH, SUPERVISOR WATER SOFTENER SERVICE LAB_1 Tabatha l Result Performing Organization Address [facility] Co de Phone Number [facility] [address] [place], [place] [address] [place] [address] * AST (02/19/2025 11:12 AM CDT) AST (SGOT) 35 10 - 40 U/L 02/19/2025 3:10 PM CDT [facility] Blood Venipuncture / Unknown 02/19/2025 11:12 AM CDT 02/19/2025 2:21 PM CDT Ankita Claytonhalina ASSISTANT BASEBALL COACH, SUPERVISOR WATER SOFTENER SERVICE LAB_1 Tabatha l Result Performing Organization Address [facility] de Phone Number [facility] [address] documented in this encounter Visit Diagnoses [...] encephalopathy documented in this encounter Care Teams Publishing Manager Relationship Specialty Start Date End Date Sarah Mathews MD [address] [place] [address] PCP - General Family Practice 01/25/23 documented as of this encounter
--- OUTSIDE RECORDS SUMMARY | 2025-05-09 13:56 | XMS_ITS | Encounter Summary ---
Author Organization [facility] Address [address] [place] [address] Care Team Providers Care Chart Collector Name Role Phone Sarah Mathews MD Primary Care Provi franko Encounter Details Date Type Department Care Team (Late st Contact Info) Description 11/14/2024 Lab Requisition [facility] [address] [place], [place] [address] Ankita Gaviria APRN, [place] [address] [place], [place] [phone] Acute and subacute infective endocarditis Social History [...] Description 04/24/2025 Lab Requisition [facility] [address] [place] [address] Ankita Gaviria APRN, BOOM PUMP OPERATOR [address] [place], [place] [phone] Acute and subacute infective endocarditis 05/08/2025 Lab Requisition [facility] [address] [place] [address] Ankita Gaviria APRN, [address] [phone] Acute and subacute infective endocarditis 05/08/2025 Lab Requisition [facility] [address] [place], [place] [address] [phone] Ankita Gaviria APRN, [address] [phone] Acute and subacute infective endocarditis 05/09/2025 Lab Requisition [facility] [address] [place], [place] [address] [phone] Ankita Gaviria APRN, [address] [phone] Metabolic encephalopathy documented as of this encounter Procedures Procedure Name Priority Date/Time Associated Diagnosis Comments CBC AND DIFFERENTIAL PANEL Routine 11/27/2024 7:55 AM CDT Acute and subacute infective endocarditis CREATININE / GFR Routine 11/27/2024 7:55 AM CDT Acute and subacute infective endocarditis COMPLETE BLOOD COUNT-W/DIFF Routine 11/27/2024 7:55 AM CDT Acute and subacute infective endocarditis C-REACTIVE PROTEIN Routine 11/27/2024 7: 55 AM CDT Acute and subacute infective endocarditis AST Routine 11/27/2024 7:55 AM CDT Acute and subacute infective endocarditis documented in this encounter Results * Complete Blood Count-W/Diff (11/27/2024 7:55 AM CDT) WBC 6.2 3.5 - 10.5 x10(9)/L 11/27/2024 12:50 PM CDT [facility] RBC 4.37 4.32 - 5.72 x10(12)/L 11/27/2024 12:50 PM CDT [facility] Hemoglobin 13.6 13.5 - 17.5 g/dL 11/27/2024 12:50 PM CDT [facility] HCT 40.2 38.8 - 50.0 % 11/27/2024 12:50 PM CDT [facility] MCV 92.0 80.0 - 100.0 fL 11/27/2024 12:50 PM CDT [facility] MCH 31.1 27.6 - 33.3 pg 11/27/2024 12:50 PM CDT [facility] MCHC 33.8 31.5 - 35.2 g/dL 11/27/2024 12:50 PM CDT [facility] RDW 12.7 11.9 - 15.5 % 11/27/2024 12:50 PM CDT [facility] Platelets 224 150 - 450 x10(9)/L 11/27/2024 12:50 PM CDT [facility] Automated NRBC 0 <=0 /100 WBC 11/27/2024 12:50 PM CDT [facility] Neutrophil Absolute 3.9 1.7 - 7.0 10(9)/L 11/27/2024 12:50 PM CDT [facility] Lymphocyte Absolute 1.4 1.0 - 4.8 10(9)/L 11/27/2024 12:50 PM CDT [facility] Monocyte Absolute 0.6 0.2 - 0.9 10(9)/L 11/27/2024 12:50 PM CDT [facility] Eosinophil Absolute 0.3 0.0 - 0.5 10(9)/L 11/27/2024 12:50 PM CDT [facility] Basophil Absolute 0.0 0.0 - 0.3 10(9)/L 11/27/2024 12:50 PM CDT [facility] Immature Granulocyte % 0.5 0.0 - 0.5 % 11/27/2024 12:50 PM CDT [facility] Blood Venipuncture / Unknown 11/27/2024 7:55 AM CDT 11/27/2024 12:40 PM CDT Ankita Jha Khadra GENAO, BOOM PUMP OPERATOR LAB_1 Tabatha l Result Performing Organization Address [facility] Phone Number [facility] [address] [place] [address] * (ABNORMAL) C-Reactive Protein (11/27/2024 7:55 AM CDT) C-Reactive Protein 0.7(H) 0.0 - 0.5 mg/dL 11/27/2024 2:11 PM CDT [facility] Blood Venipuncture / Unknown 11/27/2024 7:55 AM CDT 11/27/2024 12:34 PM CDT Ankita Yudelka Khadra GENAO, BOOM PUMP OPERATOR LAB_1 Tabatha l Result Performing Organization Address [facility] Phone Number [facility] [address] [place] [address] * Creatinine / GFR (11/27/2024 7:55 AM CDT) Creatinine 0.90 0.73 - 1.18 mg/dL 11/27/2024 1:34 PM CDT [facility] GFR, Estimated >60 >60 mL/min/1.7 3m2 11/27/2024 1:34 PM CDT [facility] Blood Venipuncture / Unknown 11/27/2024 7:55 AM CDT 11/27/2024 12:34 PM CDT Ankita Jha Khadra GENAO, BOOM PUMP OPERATOR LAB_1 Tabatha l Result Performing Organization Address [facility] de Phone Number [facility] [address] [place] [address] * (ABNORMAL) AST (11/27/2024 7:55 AM CDT) AST (SGOT) 54(H) 10 - 40 U/L 11/27/2024 1:34 PM CDT [facility] Blood Venipuncture / Unknown 11/27/2024 7:55 AM CDT 11/27/2024 12:34 PM CDT us Ankita Claytonr SUGAR REPROCESS OPERATOR HEAD, BOOM PUMP OPERATOR LAB_1 Tabatha l Result [facility] [address] [place], [place] [address] documented in this encounter Visit Diagnoses [...] encephalopathy documented in this encounter Care Teams Chart Collector Relationship Specialty Start Date End Date Sarah Mathews MD [address] [place] [id number] PCP - General Family Practice 01/25/23 documented as of this encounter
--- OUTSIDE RECORDS SUMMARY | 2025-05-09 13:57 | XMS_ITS | Clinical Summary ---
Author Organization [facility] Address [address] [place] [address] Care Team Providers Care Pharmacy Manager Name Role Phone Blanca Rodriguez MD Primary Care Provider [phone] Emily Gill APRN DRUMS TEACHER Unavailable Montez Green MD Unavailable Montez Green MD Unavailable Addie Crawford DRUMS TEACHER Unavailable [phone] Piyush Serrano MD Unavailable Allergies Active Allergy Reactions Criticality Noted Date Comments Fish Oil Blisters Medium 11/24/2021 Cullman-3 Blisters Medium 11/24/2021 Turmeric Blisters Medium 11/24/2021 Medications multivitamin w/minerals (THERA-VIT-M) tabletIndicatio ns:nutritional support Take 1 tablet by mouth daily Active aspirin 81 MG EC tabletIndicatio ns:Atherosclero tic Disease Take 81 mg by mouth daily. Active atorvastatin (LIPITOR) 40 MG tabletIndicatio ns:Hyperlipidem ia Take 40 mg by mouth daily. Active diclofenac (VOLTAREN) 1 % topical gelIndications: musculoskeletal pain Apply 2 g topically 3 times daily as needed for moderate pain. To left thigh 5 Active furosemide (LASIX) 20 MG tabletIndicatio ns:Heart Failure Take 1 tablet (20 mg) by mouth daily as needed (for weight gain of 2 pounds within 24 hours or 5 pounds within 1 week). Active Lidocaine (LIDOCARE) 4 % PatchIndication s:musculoskelet al pain Place 1 patch over 12 hours onto the skin every 24 hours. To prevent lidocaine toxicity, patient should be patch free for 12 hrs daily. Active Additional Information Patient not taking.Reported on 12/27/2024 losartan (COZAAR) 25 MG tabletIndicatio ns:Hypertension ,Left Systolic Heart Failure Take 0.5 tablets (12.5 mg) by mouth daily. Active metoprolol succinate ER (TOPROL XL) 25 MG 24 hr tabletIndicatio ns:Heart Failure,Hyperte nsion Take 0.5 tablets (12.5 mg) by mouth daily. Active acetaminophen (TYLENOL 8 HOUR) 650 MG CR tablet Take 650 mg by mouth every 6 hours as needed for mild pain or fever. Active cefadroxil (DURICEF) 500 MG capsule Take 500 mg by mouth 2 times daily. Active nystatin (MYCOSTATIN) 119929 UNIT/GM external powder Apply topically. 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 11/30/2021 Acute ischemic stroke 11/24/2021 Hypertension 11/24/2021 Hyperlipidemia 11/24/2021 Social History Tobacco Use Types Packs/Day Years Used Date Smoking Tobacco: Former Cigarettes Smokeless Tobacco: Never Tobacco Cessation:Counseling Given: Not Answered Alcohol Use Standard Drinks/Week Comments Not Asked 0 (1 standard drink = 0.6 oz pur e alcohol) Not anymore PHQ-2 Answer Date Recorded PHQ-2 Score 0 12/27/2024 Adolescent Education Answer Date Record ed Getting School Help Needed Not on file 06/11 Food Insecurity Answer Date Recorded Within the past 12 months, d id you worry that your food would run out before you got money to buy more? No 11/01/2024 Within the past 12 months, d id the food you bought just not last and you didn t have money to get more? No 11/01/2024 Housing Stability Answer Date Recorded Do you have housing? (Mendez benedict is defined as stable permanent housing and does not include staying outside in a car, in a tent, in an abandoned building, in an overnight custodial, or couch-surfing.) Yes 11/01/2024 Are you worried about losing your housing? No 11/01/2024 Financial Resource Strain Answer Date R ecorded Within the past 12 months, h ave you or your family members you live with been unable to get utilities (heat, electricity) when it was really needed? No 11/01/2024 Transportation Needs Answer Date Record ed Within the past 12 months, h as lack of transportation kept you from medical appointments, getting your medicines, non-medical meetings or appointments, work, or from getting things that you need? No 11/01/2024 Interpersonal Safety Answer Date Record ed Do you feel physically and e motionally safe where you currently live? Yes 11/01/2024 Within the past 12 months, h ave you been hit, slapped, kicked or otherwise physically hurt by someone? No 11/01/2024 Within the past 12 months, h ave you been humiliated or emotionally abused in other ways by your partner or ex-partner? No 11/01/2024 Sex and Gender Information Value Date Recorded Sex Assigned at Male 05/05/2025 4:46 PM CDT Legal Sex Male 1:10 PM CLIPPER MACHINE OPERATOR Gender Identity Male 05/05/2025 4:46 PM CDT Sexual Orientation Not on file Last Filed Vital Signs Vital Sign Reading Time Taken Comments Blood Pressure 105/60 12/27/2024 2:01 PM CDT Pulse 66 12/27/2024 2:01 PM CDT Temperature 36.9 C (98.4 F) 11/21/2024 1:47 PM CLIPPER MACHINE OPERATOR Respiratory Rate 16 11/21/2024 6:16 PM CLIPPER MACHINE OPERATOR Oxygen Saturation 95% 12/27/2024 2:0 1 PM CDT Inhaled Oxygen Concentration - - Weight 82.1 kg (181 lb) 12/27/2024 2:01 PM CDT pt reported, in wheelchair Height 190.5 cm (6' 3) 12/27/2024 2:01 PM CDT pt reported Body Mass Index 22.62 12/27/2024 2:01 PM CDT Plan of Treatment Upcoming Encounters Date Type Department Care Team (Late st Contact Info) Description 05/17/2025 PRE VISIT [facility] Neurology [facility] - [address], [address] [address] Vikram Jolly MD [address] [place] [phone] PRE VISIT 05/17/2025 3:00 PM CDT Office Visit [facility] Neurology [facility] - [address], [address] [address] Margoth Zamora MD 01/08/25-NO INFO AVAILABLE Vikram Jolly MD [address] [place] [id number] Health Maintenance Due Date Last Done Comments ADVANCE CARE PLANNING 1938 ANNUAL REVIEW OF HM ORDERS 1938 HF ACTION PLAN 1938 FALL RISK ASSESSMENT 2003 RSV VACCINE (1 - 1-dose 75+ series) 2013 MEDICARE ANNUAL WELLNESS VISIT 12/01/2021 12/01/2020, 01/08/2020, 01/17/2019 ZOSTER VACCINE (2 of 2) 02/15/2022 12/21/2021 LIPID 11/24/2022 11/24/2021 COVID-19 VACCINE ( season) 2024 03/16/2024, 08/15/2023, 06/12/2022, Additional history exists INFLUENZA VACCINE (#1) 2025 BMP 05/24/2025 11/21/2024, 10/21, 11/07/2024, Additional history exists ALT 11/21/2025 11/21/2024, 10/20, 10/28/2024, Additional history exists CBC 11/21/2025 11/21/2024, 10/20, 10/31/2024, Additional history exists DTAP/TDAP/TD VACCINE (3 - Td or Tdap) 02/19/2031 02/19/2021, 02/25/2014, 04/23/2005, Additional history exists PNEUMOCOCCAL VACCINE 50+ YEARS Completed 01/17/2019, 02/26/2016, 12/12/2001 TSH W/FREE T4 REFLEX Completed 11/25/2021 PHQ-2 (once per calendar year) Completed 12/27/2024 HPV VACCINE (No Doses Required) Completed MENINGITIS VACCINE Aged Out No longer eligible based on patient's age to complete this topic Medical Devices Implanted Type Area Special Tester Device Identifier Shelf Expiration Date Model / Serial / Lot Lead Ingevity+ Af Is1 7842 59cm - [id number] Implanted:Qty: 1 on 11/30/[address] [facility] [employer] 07/20/2023 [id number] / [id number] / [id number] Lead Ingevity+ Af Is1 7841 52cm - [id number] Implanted:Qty: 1 on 11/30/[address] [facility] [employer] 11/15/2023 7841 / [id number] / [id number] Pcmkr Card Accolade Mri El Dr - [id number] Implanted:Qty: 1 on 11/30/[address] [facility] Pac[employer] 10/06/2023 [id number] / [id number] / [id number] Procedures Procedure Name Priority Date/Time Associated Diagnosis Comments CBC WITH PLATELETS & DIFFERENTIAL STAT 11/21/2024 1:52 PM CLIPPER MACHINE OPERATOR COMPREHENSIVE METABOLIC PANEL STAT 11/21/2024 1:52 PM CLIPPER MACHINE OPERATOR TSH WITH FREE T4 REFLEX Routine 11/25/2021 12:02 PM CLIPPER MACHINE OPERATOR LIPID REFLEX TO DIRECT LDL PANEL STAT 11/24/2021 9:17 PM CLIPPER MACHINE OPERATOR from Last 3 Months or Most Recently Relevant to Health Maintenance Results * (ABNORMAL) Comprehensive metabolic panel (11/21/2024 1:52 PM CLIPPER MACHINE OPERATOR) Sodium 135 135 - 145 mmol/L 11/21/2024 2:39 PM [facility] Potassium 4.4 3.4 - 5.3 mmol/L 11/21/2024 2:39 PM [facility] Carbon Dioxide (CO2) 23 22 - 29 mmol/L 11/21/2024 2:39 PM [facility] Anion Gap 10 7 - 15 mmol/L 11/21/2024 2:39 PM [facility] Urea Nitrogen 27.5(H) 8.0 - 23.0 mg/dL 11/21/2024 2:39 PM [facility] Creatinine 0.90 0.67 - 1.17 mg/dL 11/21/2024 2:39 PM [facility] GFR Estimate 83 >60 mL/min/1.7 3m2 11/21/2024 2:39 PM [facility] Comment:eGFR calculated ustx 2020 CKD-EPI equation. Calcium 9.0 8.8 - 10.4 mg/dL 11/21/2024 2:39 PM [facility] Chloride 102 98 - 107 mmol/L 11/21/2024 2:39 PM [facility] Glucose 150(H) 70 - 99 mg/dL 11/21/2024 2:39 PM [facility] Alkaline Phosphatase 190(H) 40 - 150 U/L 11/21/2024 2:39 PM [facility] AST 154(H) 0 - 45 U/L 11/21/2024 2:39 PM [facility] ALT 50 0 - 70 U/L 11/21/2024 2:39 PM [facility] Protein Total 6.3(L) 6.4 - 8.3 g/dL 11/21/2024 2:39 PM [facility] Albumin 2.9(L) 3.5 - 5.2 g/dL 11/21/2024 2:39 PM [facility] Bilirubin Total 0.5 <=1.2 mg/dL 11/21/2024 2:39 PM [facility] Blood BLOOD SPECIMEN / Unknown Venipuncture / Unknown 11/21/2024 1:52 PM [facility] 11/21/2024 1:53 PM [facility] Gomez Elder DO LAB - BLOOD ORDERA BLES Final Result Performing Organization Address City/[facility]/ZIP Co de Phone Number LABORATORY [facility] [address] floor, [address] [place] [address], [facility] [phone] * TSH with free T4 reflex (11/25/2021 12:02 PM CLIPPER MACHINE OPERATOR) TSH 0.50 0.40 - 4.00 mU/L 11/25/2021 1:28 PM CLIPPER MACHINE OPERATOR LABORATORY Blood STRUCTURE OF LEFT UPPER LIMB / Unknown Venipuncture / Unknown 11/25/2021 12:02 PM CLIPPER MACHINE OPERATOR 11/25/2021 12:39 PM CLIPPER MACHINE OPERATOR Stacy Shoemaker PA-C LAB - BLOOD ORDERABL ES Final Result Performing Organization Address [facility] Co de Phone Number LABORATORY [facility] [address], [address] [place] [address], [facility] [phone] * Lipid panel reflex to direct LDL (11/24/2021 9:17 PM CLIPPER MACHINE OPERATOR) Cholesterol 138 <200 mg/dL 11/24/2021 9:56 PM CLIPPER MACHINE OPERATOR LABORATORY Triglycerides 105 <150 mg/dL 11/24/2021 9:56 PM CLIPPER MACHINE OPERATOR LABORATORY Direct Measure HDL 47 >=40 mg/dL 2021 9:56 PM CLIPPER MACHINE OPERATOR LABORATORY LDL Cholesterol Calculated 70 <=100 mg/dL 11/24/2021 9:56 PM CLIPPER MACHINE OPERATOR LABORATORY Non HDL Cholesterol 91 <130 mg/dL 11/24/2021 9:56 PM CLIPPER MACHINE OPERATOR LABORATORY Blood STRUCTURE OF LEFT HAND / Unknown Venipuncture / Unknown 11/24/2021 9:17 PM CLIPPER MACHINE OPERATOR 11/24/2021 9:34 PM CLIPPER MACHINE OPERATOR Narrative LABORATORY - 11/24/2021 9:56 PM CLIPPER MACHINE OPERATOR Cholesterol Desirable: <200 mg/dL Triglycerides Normal: Less than 150 mg/dL Borderline High: 150-199 mg/dL High: 200-499 mg/dL Very High: Greater than or equal to 500 mg/dL Direct Measure HDL Female: Greater than or equal to 50 mg/dL Male: Greater than or equal to 40 mg/dL LDL Cholesterol Desirable: <100mg/dL Above Desirable: 100-129 mg/dL Borderline High: 130-159 mg/dL High: 160-189 mg/dL Very High: >= 190 mg/dL Non HDL Cholesterol Desirable: 130 mg/dL Above Desirable: 130-159 mg/dL Borderline High: 160-189 mg/dL High: 190-219 mg/dL Very High: Greater than or equal to 220 mg/dL us Ivone Burch NP LAB - BLOOD ORDERABLES Final Res ult LABORATORY [facility] [address], [address] [place] [address], [facility] [phone] from Last 3 Months or Most Recently Relevant to Health Maintenance Insurance [employer]VANTAGE Advance Directives For more information, please contact: [phone] * Full Code (Latest Code Status on File) Date Activated Date Inactivated Comments 10/31/2024 10:04 PM 11/08/2024 5:53 PM All basic a nd advanced life-sustaining interventions are performed as appropriate Question Answer Comments Code status determined by: Other (please documen t) * No CPR- Do NOT Intubate Date Activated Date Inactivated Comments 10/23/2024 1:19 PM 10/31/2024 6:44 PM NO basic or a dvanced life-sustaining interventions are performed Question Answer Comments Code status determined by: Discussion with patie nt/ legal decision maker * Full Code Date Activated Date Inactivated Comments 10/23/2024 11:55 AM 10/23/2024 1:19 PM All basic and advanced life-sustaining interventions are performed as appropriate Question Answer Comments Code status determined by: Discussion with patie nt/ legal decision maker * Full Code Date Activated Date Inactivated Comments 11/30/2021 3:24 PM 12/01/2021 5:12 PM All basic an d advanced life-sustaining interventions are performed as appropriate Question Answer Comments Code status determined by: Discussion with patie nt/ legal decision maker * Full Code Date Activated Date Inactivated Comments 11/27/2021 7:45 PM 11/30/2021 1:47 PM All basic an d advanced life-sustaining interventions are performed as appropriate Question Answer Comments Code status determined by: Discussion with patie nt/ legal decision maker Care Teams Pharmacy Manager Relationship Specialty Start Date End Date Blanca Rodriguez MD [address] [place] [address] PCP - General Family Medicine 11/24/21 Emily Gill APRN DRUMS TEACHER [address] [place] [address] Nurse Practitioner Cardiovascular Disease 12/01/21 Montez Green MD [address] [place] [address] Cardiovascular Disease 12/01/21 Montez Green MD [address] [place] [address] Cardiovascular Disease 05/18/23 Addie Crawford, DRUMS TEACHER [address] [place] [address] Assigned Heart and Vascular Provider 01/09/25 [place] [address] [place] [address] Assigned Musculoskeletal Provider 01/09/25
--- OUTSIDE RECORDS SUMMARY | 2025-05-09 13:57 | XMS_ITS | Encounter Summary ---
[facility] [address] [place] [address] Care Team Providers Care Food Trades Assistants Name Role Phone Sarah Mathews MD Primary Care Provi franko Encounter Details Date Type Department Care Team (Late st Contact Info) Description 04/10/2025 [facility] [address] [place], [place] [address] Ankita Gaviria APRN, [place] [address] [place], [place] [phone] Acute and subacute infective endocarditis Social History [...] st Contact Info) Description 04/24/2025 [facility] [address] [place] [address] Ankita Gaviria APRN, GRINDING MILL OPERATOR [address] [place], [place] [phone] Acute and subacute infective endocarditis 05/08/2025 [facility] [address] [place] [address] Ankita Gaviria APRN, [address] [address] [phone] Acute and subacute infective endocarditis 05/08/2025 [facility] [address] [place] [address] Ankita Gaviria APRN, [address] [phone] Acute and subacute infective endocarditis 05/09/2025 [facility] [address] [place], [place] [address] [phone] Ankita Gaviria APRN, [address] [address] [phone] Metabolic encephalopathy documented as of this encounter Procedures Procedure Name Priority Date/Time Associated Diagnosis Comments CBC AND DIFFERENTIAL PANEL Routine 04/30/2025 9:56 [...] encounter Results * (ABNORMAL) Complete Blood Count-W/Diff (04/30/2025 9:56 AM CDT) WBC 6.2 3.5 - 10.5 x10(9)/L 04/30/2025 1:33 PM CDT [facility] RBC 4.40 4.32 - 5.72 x10(12)/L 04/30/2025 1:33 PM CDT [facility] Hemoglobin 13.5 13.5 - 17.5 g/dL 04/30/2025 1:33 PM CDT [facility] HCT 40.6 38.8 - 50.0 % 04/30/2025 1:33 PM CDT [facility] MCV 92.3 80.0 - 100.0 fL 04/30/2025 1:33 PM CDT [facility] MCH 30.7 27.6 - 33.3 pg 04/30/2025 1:33 PM CDT [facility] MCHC 33.3 31.5 - 35.2 g/dL 04/30/2025 1:33 PM CDT [facility] RDW 14.1 11.9 - 15.5 % 04/30/2025 1:33 PM CDT [facility] Platelets 144(L) 150 - 450 x10(9)/L 04/30/2025 1:33 PM CDT [facility] Automated NRBC 0 <=0 /100 WBC 04/30/2025 1:33 PM CDT [facility] Neutrophil Absolute 4.4 1.7 - 7.0 10(9)/L 04/30/2025 1:33 PM CDT [facility] Lymphocyte Absolute 1.0 1.0 - 4.8 10(9)/L 04/30/2025 1:33 PM CDT [facility] Monocyte Absolute 0.6 0.2 - 0.9 10(9)/L 04/30/2025 1:33 PM CDT [facility] Eosinophil Absolute 0.2 0.0 - 0.5 10(9)/L 04/30/2025 1:33 PM CDT [facility] Basophil Absolute 0.0 0.0 - 0.3 10(9)/L 04/30/2025 1:33 PM CDT [facility] Immature Granulocyte % 0.3 0.0 - 0.5 % 04/30/2025 1:33 PM CDT [facility] Blood Venipuncture / Unknown 04/30/2025 9:56 AM CDT 04/30/2025 1:24 PM CDT Ankita Yudelka Khadra GENAO, GRINDING MILL OPERATOR LAB_1 Tabatha l Result Performing Organization Address [facility] de Phone Number [facility] [address] [place] [address] * C-Reactive Protein (04/30/2025 9:56 AM CDT) C-Reactive Protein 0.5 0.0 - 0.5 mg/dL 04/30/2025 3:55 PM CDT [facility] Blood Venipuncture / Unknown 04/30/2025 9:56 AM CDT 04/30/2025 1:23 PM CDT Ankita Yudelka Khadra GENAO, GRINDING MILL OPERATOR LAB_1 Tabatha l Result Performing Organization Address [facility] Phone Number [facility] [address] [place] [address] * (ABNORMAL) Creatinine / GFR (04/30/2025 9:56 AM CDT) Creatinine 1.38(H) 0.73 - 1.18 mg/dL 04/30/2025 3:55 PM CDT [facility] GFR, Estimated 50(L) >60 mL/min/1.7 3m2 04/30/2025 3:55 PM CDT [facility] Blood Venipuncture / Unknown 04/30/2025 9:56 AM CDT 04/30/2025 1:23 PM CDT Narrative [facility] - 04/30/2025 3:55 PM CDT The National Kidney Disease Education Program suggests measuring Cystatin C in patients with eGFRcrea of 45 to 59 ml/min/1.73^2 who do not have other markers of kidney damage (i.e. elevated urine Albumin/Creatinine Ratio or a prior Cystatin C confirming the presence of chronic kidney disease). Result [facility] Ankita Gaviria APRN, GRINDING MILL OPERATOR LAB_1 Tabatha l Result Performing Organization Address City/[facility] Co de Phone Number [facility] [address] * AST (04/30/2025 9:56 AM CDT) AST (SGOT) 27 16 - 46 U/L 04/30/2025 3:55 PM CDT [facility] Blood Venipuncture / Unknown 04/30/2025 9:56 AM CDT 04/30/2025 1:23 PM CDT Ankita Jha Khadra LARAN, GRINDING MILL OPERATOR LAB_1 Tabatha l Result Performing Organization Address [facility] de Phone Number [facility] [address] documented in this encounter Visit Diagnoses [...] documented in this encounter Care Teams Food Trades Assistants Relationship Specialty Start Date End Date Sarah Mathews MD [address] [place] [address] PCP - General Family Practice 01/25/23 documented as of this encounter
--- OUTSIDE RECORDS SUMMARY | 2025-05-09 13:57 | XMS_ITS | Encounter Summary ---
[facility] Address [address] [place] [address] Care Team Providers Care Clinical Investigator Name Role Phone Sarah Mathews MD Primary Care Provi franko Encounter Details Date Type Department Care Team (Late st Contact Info) Description 04/03/2025 Lab Requisition [facility] [address] [place], [place] [id number] Ankita Gaviria APRN, [place] [id number] [place], [place] [phone] Acute and subacute infective endocarditis Social History [...] st Contact Info) Description 04/24/2025 Lab Requisition [facility] [address] [place] [address] Ankita Gaviria APRN, MANAGER OF MARKETING [address] [place], [place] [phone] Acute and subacute infective endocarditis 05/08/2025 Lab Requisition [facility] [address] [place] [address] Ankita Gaviria APRN, [address] [phone] Acute and subacute infective endocarditis 05/08/2025 Lab Requisition [facility] [address] [place] [address] Ankita Gaviria PHONE MANAGER, [address] [phone] Acute and subacute infective endocarditis 05/09/2025 Lab Requisition [facility] [address] [place], [place] [address] [phone] Ankita Gaviria APRN, [address] [phone] Metabolic encephalopathy documented as of this encounter Procedures Procedure Name Priority Date/Time Associated Diagnosis Comments CBC AND DIFFERENTIAL PANEL Routine 04/23/2025 10:40 [...] encounter Results * (ABNORMAL) Complete Blood Count-W/Diff (04/23/2025 10:40 AM CDT) [facility] [address] WBC 5.8 3.5 - 10.5 x10(9)/L 04/23/2025 1:08 PM CDT [facility] RBC 4.41 4.32 - 5.72 x10(12)/L 04/23/2025 1:08 PM CDT [facility] Hemoglobin 13.6 13.5 - 17.5 g/dL 04/23/2025 1:08 PM CDT [facility] HCT 39.5 38.8 - 50.0 % 04/23/2025 1:08 PM CDT [facility] MCV 89.6 80.0 - 100.0 fL 04/23/2025 1:08 PM CDT [facility] MCH 30.8 27.6 - 33.3 pg 04/23/2025 1:08 PM CDT [facility] MCHC 34.4 31.5 - 35.2 g/dL 04/23/2025 1:08 PM CDT [facility] RDW 13.3 11.9 - 15.5 % 04/23/2025 1:08 PM CDT [facility] Platelets 136(L) 150 - 450 x10(9)/L 04/23/2025 1:08 PM CDT [facility] Automated NRBC 0 <=0 /100 WBC 04/23/2025 1:08 PM CDT [facility] Neutrophil Absolute 4.1 1.7 - 7.0 10(9)/L 04/23/2025 1:08 PM CDT [facility] Lymphocyte Absolute 0.9(L) 1.0 - 4.8 10(9)/L 04/23/2025 1:08 PM CDT [facility] Monocyte Absolute 0.6 0.2 - 0.9 10(9)/L 04/23/2025 1:08 PM CDT [facility] Eosinophil Absolute 0.1 0.0 - 0.5 10(9)/L 04/23/2025 1:08 PM CDT [facility] Basophil Absolute 0.0 0.0 - 0.3 10(9)/L 04/23/2025 1:08 PM CDT [facility] Immature Granulocyte % 0.3 0.0 - 0.5 % 04/23/2025 1:08 PM CDT [facility] Blood Venipuncture / Unknown 04/23/2025 10:40 AM CDT 04/23/2025 12:43 PM CDT us Ankita Smallshelenehalina PHONE MANAGER, MANAGER OF MARKETING LAB_1 Tabatha l Result Performing Organization Address [facility] de Phone Number [facility] [address] [place] [address] * C-Reactive Protein (04/23/2025 10:40 AM CDT) C-Reactive Protein <0.5 0.0 - 0.5 mg/dL 04/23/2025 1:36 PM CDT [facility] Blood Venipuncture / Unknown 04/23/2025 10:40 AM CDT 04/23/2025 12:43 PM CDT us Ankita Smallshelenehalina BIRGIT, MANAGER OF MARKETING LAB_1 Tabatha l Result Performing Organization Address [facility] Phone Number [facility] [address] [place] [address] * (ABNORMAL) Creatinine / GFR (04/23/2025 10:40 AM CDT) Creatinine 1.41(H) 0.73 - 1.18 mg/dL 04/23/2025 1:36 PM CDT [facility] GFR, Estimated 49(L) >60 mL/min/1.7 3m2 04/23/2025 1:36 PM CDT [facility] Blood Venipuncture / Unknown 04/23/2025 10:40 AM CDT 04/23/2025 12:43 PM CDT Narrative [facility] - 04/23/2025 1:36 PM CDT The National Kid[employer] Disease Education Program suggests measuring Cystatin C in patients with eGFRcrea of 45 to 59 ml/min/1.73^2 who do not have other markers of kidney damage (i.e. elevated urine Albumin/Creatinine Ratio or a prior Cystatin C confirming the presence of chronic kidney disease). us Ankita Claytnor PHONE MANAGER, MANAGER OF MARKETING LAB_1 Tabatha l Result Performing Organization Address [facility] Co de Phone Number [facility] [address] * AST (04/23/2025 10:40 AM CDT) AST (SGOT) 27 16 - 46 U/L 04/23/2025 1:36 PM CDT [facility] Blood Venipuncture / Unknown 04/23/2025 10:40 AM CDT 04/23/2025 12:43 PM CDT Ankita Gaviria PHONE MANAGER, MANAGER OF MARKETING LAB_1 Tabatha l Result Performing Organization Address [facility] de Phone Number [facility] [address] documented in this encounter Visit Diagnoses [...] encephalopathy documented in this encounter Care Teams Clinical Investigator Relationship Specialty Start Date End Date Sarah Mathews MD [address] [place] [address] PCP - General Family Practice 01/25/23 documented as of this encounter
[2025-05-09 14:06] LABS: HCO3 VBG 22 mmol/L (21-28); Lactate Sepsis w/Reflex* 2.1 mmol/L (0.5-1.9); PCO2 VBG 42 mmHG (40-50); PO2 VBG < 30.1 mmHG (25-47); pH VBG 7.330 (7.32-7.43)
[2025-05-09 14:08] LABS: Hematocrit 44.2 % (37.0-53.0); Hemoglobin* 14.6 gm/dL (13.5-17.5); Immature Granulocytes Abs Auto 0.01 K/uL (0.00-0.30); Immature Granulocytes Pct Auto 0.1 %; Mean Corpuscular HGB Conc 33 gm/dL (32-36); Mean Corpuscular Hemoglobin 31 pg (26-34); Mean Corpuscular Volume 94 fL (80-100); RDW Coefficient of Variation % 14.5 % (11.5-15.5); Red Blood Count 4.72 m/uL (4.30-5.90); White Blood Count* 8.54 K/uL (4.50-11.00)
[2025-05-09 14:10] LABS: Lymphocytes Absolute Auto 0.50 K/uL (0.90-2.90); Slide Review Reflex No
[2025-05-09 14:13] LABS: Troponin, Point-of-Care* 0.05 ng/ml (0.01-0.04)
[2025-05-09 14:24] LABS: Albumin* 4.3 g/dL (3.3-5.0); Chloride* 108 mmol/L (96-114); Potassium* 4.4 mmol/L (3.6-5.1); Sodium* 140 mmol/L (135-149)
[2025-05-09 14:26] LABS: Blood Urea Nitrogen* 48 mg/dL (7-30); Creatinine* 1.4 mg/dL (0.5-1.5); Est. Creatinine Clearance* 44.04; Estimated Glomerular Filt Rate 49 ml/min
[2025-05-09 14:27] LABS: Alanine Aminotransferase* 36 U/L (4-50); Alkaline Phosphatase* 57 U/L (40-150); Anion Gap 10 mEq/L (7-15); Aspartate Amino Transferase* 47 U/L (12-35); Bilirubin Direct* 0.3 mg/dL (0.0-0.5); Bilirubin Total* 1.5 mg/dL (0.1-1.5); Calcium* 10.3 mg/dL (8.4-10.6); Carbon Dioxide* 22 mmol/L (20-32); Glucose* 154 mg/dL (60-115); Total Protein* 7.4 g/dL (6.0-8.3)
[2025-05-09 14:37] LABS: NT Pro B Type NatriureticPept* 13900 pg/mL (See Note)
[2025-05-09] MEDS: FUROSEMIDE 10 MG/ML inj 40 MG IVP (15:44)
[2025-05-09 16:16] LABS: Lactate Sepsis 2 Hour 2.4 mmol/L (0.5-1.9)
[2025-05-09 16:26] LABS: Troponin, Point-of-Care* 0.17 ng/ml (0.01-0.04)
== END 2025-05-09 19:15 | disposition other institution (70) ==
PROVIDERS: Emergency Provider Emergency Medicine
DX: I50.9 Heart failure, unspecified (principal); I35.0 Nonrheumatic aortic (valve) stenosis
CPT/HCPCS: 36415; 71045; 80048; 80076; 82803; 83605; 83880; 84484; 85025; 86140; 87631; 93005; 94761; 96374; 99285; J1938

== ENCOUNTER 2025-05-09 18:48 | Outpatient (CLI) | payer MEDICARE, MEDICAID, SELFPAY | END 2025-05-09 18:49 | disposition home or self-care (01) | LOC: AMB 05-16 08:26 | PROVIDERS: Visit Provider Student in an Organized Health Care Education/Training Program | DX: I50.9 Heart failure, unspecified (principal); I35.0 Nonrheumatic aortic (valve) stenosis; Z86.79 Personal history of other diseases of the circulatory system | CPT/HCPCS: A0425; A0427 ==